=== PATIENT | female | born 1990 | race Caucasian/White ===

== ENCOUNTER → 2018-05-10 13:57 | Outpatient (CLI) | payer OTHER, SELFPAY ==
--- NOTE | 2018-05-10 14:05 | US_ITS ---
US breast LT complete INDICATION: Palpable abnormality on the left chest above the left breast ORDERING PHYSICIAN: Jong Rubio MD PATIENT AGE: 27 years COMPARISON: None TECHNIQUE: Left breast ultrasound FINDINGS: There is a heterogeneous oval lesion in the left chest superiorly measuring 3 x 1.6 cm. This is not a cyst by ultrasound. Possibly related to enlarged lymph node. Suggest chest CT for further evaluation. This lesion was not in the in an area that couldn't be imaged by mammogram. IMPRESSION: Solid appearing 3 x 1.6 cm nodule in the superior left chest cutaneous region. Adenopathy or mass is considered. Consider chest CT for further evaluation
== END ==
PROVIDERS: Family Provider Family Medicine; PCP Family Medicine; Visit Provider Family Medicine
DX: N63.20 Unspecified lump in the left breast, unspecified quadrant (principal)
CPT/HCPCS: 76641

== ENCOUNTER → 2018-05-24 14:00 | Outpatient (CLI) | payer OTHER, SELFPAY ==
--- NOTE | 2018-05-24 14:14 | CT_ITS ---
CT chest w con HISTORY: Palpable abnormality along the anterior mid upper chest with abnormal ultrasound ITS.REASON: LUNG NODULE ORDERING PHYSICIAN: Jong Rubio MD PATIENT AGE: 27 years COMPARISON: None TECHNIQUE: Axial images obtained following the administration of 75 mL of Isovue 370 . Sagittal, and coronal reformatted images are also generated and reviewed. All CT scans at the facility use one or more dose reduction, viz: automated exposure control, ma/kV adjustment per patient size (including targeted exams where dose is matched to indication, i.e. head), or iterative reconstruction technique. FINDINGS: No mediastinal or hilar mass or adenopathy is evident. Soft tissue density is present in the anterior mediastinum consistent with residual thymic tissue/thymic plasia. Normal heart size. No evidence of pericardial effusion. There is evidence of old granulomatous disease with 3 benign-appearing nodules in the right upper lobe the largest at 5 mm and may be contained central calcification. There is a 16 x 10 mm calcified granuloma in the right lower lobe. No suspicious pulmonary nodules infiltrates or effusions. Patient reports palpable nodule in the superior left chest medially. Ultrasound showed heterogeneous echogenicity in this region. BB is placed at the noted the area of palpable abnormality. Along the chest wall deep to the placed BB is a heterogeneous nodule containing mostly fat measuring 2.2 x 1.9 cm. The fat and central with some peripheral soft tissue density. A similar hypodensity is present along the lateral aspect of the breast along the major chest wall measuring 2.4 x 1.2 cm. No adenopathy or other significant anomalies are evident. There is a similar fat-containing density in the inferior aspect of the left breast at 2.6 x 2.6 cm. No other significant anomalies evident. IMPRESSION: Multiple fatty lesions along the left chest wall and left breast consistent with lipomas. There is some peripheral increased density around these lipomatous have a somewhat irregular appearance. This could also be due to prior trauma. Has patient had prior breast surgery? Would recommend left-sided mammogram for confirmation of benign appearance. Would also recommend [address] follow-up. This could be performed without contrast to confirm stability. A more ominous process such as liposarcoma is felt to be less likely.
== END ==
PROVIDERS: Family Provider Family Medicine; PCP Family Medicine; Visit Provider Family Medicine
DX: R91.1 Solitary pulmonary nodule (principal)
CPT/HCPCS: 71260; Q9967

== ENCOUNTER → 2018-09-14 21:43 | Outpatient (CLI) | payer OTHER, SELFPAY | PROVIDERS: Visit Provider Nurse Practitioner Family | DX: J02.9 Acute pharyngitis, unspecified (principal) ==

== ENCOUNTER 2020-12-09 19:15 | Emergency (ER) | payer BC, SELFPAY ==
[2020-12-09 19:20] VITALS: BP 152/80; PULSE 96; RESP 17; TEMP 36.4; O2SAT 96; BMI 36.0
--- NOTE | 2020-12-09 19:24 | XR_ITS ---
PROCEDURE: XR ANKLE RT MIN 3V CLINICAL INDICATION: PAIN Injury with pain COMPARISON: No exams were available for comparison FINDINGS: Mild soft tissue swelling present the lateral malleolar region. No fracture or dislocation. IMPRESSION: Soft tissue swelling otherwise negative Dictated by: Tio Leary MD 12/10/2020 05:26 Tio Leary MD in [place] 12/10/2020 05:26
--- NOTE | 2020-12-09 19:40 | HMH.EDUTC ---
[facility] [place] Disposition Clinical Impression: Ankle sprain Qualifiers: Encounter type: initial encounter Involved ligament of ankle: other ligament Laterality: right Qualified Code(s): S93.491A - Sprain of other ligament of right ankle, initial encounter Disposition: Home, Self-Care Condition on Discharge: Good Instructions: How to Use Crutches, How To Perform RICE (Rest, Ice, Compress, Elevate), Ibuprofen, How to Use a Walking Boot Additional Instructions: *weight bearing as tolerated *RICE, Rest the extremity, Ice 15-20 minutes 3-4 times daily, Compress- wear the moises wrap as discussed as much as possible to help reduce swelling and pain, Elevate the extremity when at rest *Walking boot is for support and help control swelling, use it except in the shower. Be sure that is not to tight but not to loose either *Elevate when resting *Ibuprofen 600-800mg every 6-8 hours as needed for pain an inflammation. If need something more can take Tylenol in between doses of Ibuprofen to help Immediately follow up with your family doctor for new or worsening of symptoms, or no noticeable improvement over the next 3-[address] Washington office will call you with appointment date and time Use crutches to aid with walking and weight bearing as tolerated Straight to ER if any life threatening symptoms Referrals: Jong Rubio MD [Primary Care Provider] - As needed Myah Washington MD [Physician] - As needed (Office will call with appointment) Time of Disposition: 19:49 Medical Decision Making - Helio Inquiry Pt receiving controlled substance: No Helio was queried for this patient: No Vital Signs: 12/09/20 19:20 Temperature 97.5 F L Temperature Source Oral Pulse Rate [Right Brachial] 96 H Respiratory Rate 17 Blood Pressure [Right Arm] 152/80 H Blood Pressure Mean [Right Arm] 104 Blood Pressure Source [Right Arm] Automatic Cuff Blood Pressure Position [Right Arm] Sitting 02 Sat by Pulse Oximetry 96 Oxygen Delivery Method Room Air Orders (Tests/Meds): ORDERS Category Date Time Status XR ankle RT min 3V Stat Exams 12/09/20 19:24 Taken - Radiology Data #1 Image(s): Ankle Image Reviewed: Yes I reviewed the patient's radiology image Preliminary Findings: No Fracture Seen soft tissue swelling no acute fracture - Physician Consults Physician Consulted: Padmini Time: 19:46 Reason -: Orthopedic Eval/Care Comment/Response: Spoke with Dr Washington she advised walking boot, crutches rice and her office would call her with appointment [facility] [place] HPI - General Stated complaint: AO 0301 [id number] injured R Ankle Time Seen by Provider: 12/09/20 19:25 Mode of Arrival: Ambulatory Source of Information: Patient Limitations: No Limitations Description of Symptoms (Recalled from Triage Doc. by RN): PATIENT C/O RIGHT ANKLE INJURY AFTER TRIPPING AND FALLING APPROX 1615 TODAY HEENT Symptoms (Recalled from RN notes): No Resp Symptoms (Recalled from RN notes): No Skin Symptoms (Recalled from RN notes): No MS Symptoms (Recalled from RN notes): Yes Functional Status (Recalled from RN notes): WNL - History of Present Illness Provider Complaint: Patient states that she was trying to get her dogs in when she slipped and felt and heard a loud pop in her right ankle and fell States that ever since she has had swelling in her right ankle and pain when she tries to walk she has sharp pain States that she tried to keep it up and put ice on it but it continued to swell so she came in Denies any other injury - Related Data Home Medications Medication Instructions Recorded Confirmed risperidone 0.5 mg tablet 0.5 mg PO DAILY 08/30/18 10/05/19 duloxetine 60 mg capsule,delayed mg PO 10/05/19 10/05/19 release Previous Rx's Medication Instructions Recorded ycapfgalnlycqmd-nrgmywzjojdziwt-OI 10 ml PO Q4-6H PRN 7 Days #118 ml 10/05/19 2 mg-30 mg-10 mg/5 mL oral syrup Allergies Allergy/AdvReac Type Severity Reaction Status Date / Christopher
[2020-12-09 20:08] VITALS: BP 152/80; PULSE 96; RESP 17; TEMP 36.4; O2SAT 96
== END 2020-12-09 20:12 | disposition home or self-care (01) ==
PROVIDERS: Emergency Provider Nurse Practitioner; PCP Family Medicine
DX: S93.491A Sprain of other ligament of right ankle, initial encounter (principal); W01.0XXA Fall on same level from slipping, tripping and stumbling without subsequent striking against object, initial encounter; Y92.017 Garden or yard in single-family (private) house as the place of occurrence of the external cause; F17.210 Nicotine dependence, cigarettes, uncomplicated
CPT/HCPCS: 29515; 73610; 99202; G0463

== ENCOUNTER 2020-12-31 09:57 | Emergency (ER) | payer BC, SELFPAY ==
[2020-12-31 10:05] VITALS: BP 133/89; PULSE 67; RESP 14; TEMP 37.4; O2SAT 99; BMI 36.0
--- NOTE | 2020-12-31 10:18 | HMH.EDUTC ---
[facility] [place] Disposition Clinical Impression: Viral syndrome, Exposure to COVID-19 virus Disposition: Home, Self-Care Condition on Discharge: Good Instructions: DI for COVID-19 (Suspected or Confirmed ), Preventing the Spread of Coronavirus Discharge Instructions Additional Instructions: Drink plenty of fluids. Take tylenol for pain or fever. Return if you begin to have difficulty breathing. Follow up with your regular doctor. GO TO THE ER FOR ANY WORSENING SYMPTOMS Prescriptions: Ondansetron [Zofran 4mg ODT] 4 mg PO Q8HP PRN #20 tab.rapdis PRN Reason: Nausea Transmission Status: Received by [facility] Referrals: Jong Rubio MD [Primary Care Provider] - Forms: Work/School Release Time of Disposition: 10:29 Medical Decision Making - Medical Records Medical records reviewed: No: I reviewed the patient's medical records. - Helio Inquiry Pt receiving controlled substance: No Vital Signs: 12/31/20 10:05 12/31/20 10:37 Temperature 99.3 F 99 F Temperature Source Oral Pulse Rate 77 Pulse Rate [Right] 67 Respiratory Rate 14 16 Blood Pressure 130/92 H Blood Pressure [Right Arm] 133/89 Blood Pressure Mean [Right Arm] 103 Blood Pressure Source [Right Arm] Automatic Cuff Blood Pressure Position [Right Arm] Sitting 02 Sat by Pulse Oximetry 99 Oxygen Delivery Method Room Air - Lab Data Lab results reviewed: Yes: I reviewed the patient's lab results. Lab Results 12/31/20 10:38: Strep Scn Rapid Clinic Negative Orders (Tests/Meds): ORDERS Category Date Time Status Covid-19 Nasal PCR ([facility]) Routine Lab 12/31/20 10:10 Received Strep Screen Confirmation Stat Micro 12/31/20 10:38 Received [facility] [place] HPI - General Stated complaint: cov test Time Seen by Provider: 12/31/20 10:18 Mode of Arrival: Ambulatory Source of Information: Patient Limitations: No Limitations Description of Symptoms (Recalled from Triage Doc. by RN): N/V, RIVAS, fever, and sore throat. all started wednesday. HEENT Symptoms (Recalled from RN notes): Yes (sore throat and RIVAS) Resp Symptoms (Recalled from RN notes): No Skin Symptoms (Recalled from RN notes): No MS Symptoms (Recalled from RN notes): No Functional Status (Recalled from RN notes): na - History of Present Illness Provider Complaint: She c/o sore throat, nausea, cough, and body aches since yesterday. 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 She has been exposed to covid-19. - Related Data Home Medications Medication Instructions Recorded Confirmed risperidone 0.5 mg tablet 0.5 mg PO DAILY 08/30/18 12/16/20 Previous Rx's Medication Instructions Recorded Ondansetron [Zofran 4mg ODT] 4 mg PO Q8HP PRN #20 tab.rapdis 12/31/20 Allergies Allergy/AdvReac Type Severity Reaction Status Date / Time tramadol [From ULTRAM] Allergy Unknown Verified 12/31/20 10:13 - Worker's Comp Is this a Worker's Comp case?: No [facility] History - Hepatitis A Screen Drug use history?: No High risk sexual behaviors?: No History of sexually transmitted infection?: No Currently employed?: No Childcare worker?: No Do you have indoor plumbing?: Yes Do you have electricity?: Yes Attestation statement:: This patient has been screened for Hepatitis A risk factors. I have reviewed the patient's past medical history: Yes Medical History: Reports:: Anxiety, Depression Other Surgeries: Yes: No Previous Surgery - Social History Smoking Status: Unknown if ever smoked Tobacco Type: cigarettes Alcohol Intake: never Occupational Status: employed Housing: house Household Members: family - Psychiatric History Pschychiatric History:: Reports:: Anxiety, Depression Family Hx:: No significant family history ROS Obtained: Yes All systems reviewed & no additional complaints - Constitutional Constitutional: Reports body ache, Reports chills, Reports fever(s), Reports poor appetite, Reports malaise - Eyes Eyes: Denies eye discharge - ENT Ears, Nose, Mouth, and
[2020-12-31 10:37] VITALS: BP 130/92; PULSE 77; RESP 16; TEMP 37.2
[2020-12-31 10:39] LABS: UTC Strep Screen (Rapid) Negative (Negative)
== END 2020-12-31 10:37 | disposition home or self-care (01) ==
PROVIDERS: Emergency Provider Nurse Practitioner Family; PCP Family Medicine
DX: Z20.822 Contact with and (suspected) exposure to COVID-19 (principal); B34.9 Viral infection, unspecified; F41.8 Other specified anxiety disorders
CPT/HCPCS: 87880; 99202; G0463; U0003

== ENCOUNTER → 2022-03-11 20:02 | Outpatient (CLI) | payer BC, SELFPAY | PROVIDERS: PCP Family Medicine; Visit Provider Nurse Practitioner Family | DX: G47.30 Sleep apnea, unspecified (principal); R53.83 Other fatigue; R06.83 Snoring; G47.50 Parasomnia, unspecified; G47.9 Sleep disorder, unspecified; G47.00 Insomnia, unspecified; E66.9 Obesity, unspecified; Z68.38 Body mass index [BMI] 38.0-38.9, adult | CPT/HCPCS: 95810 ==

== ENCOUNTER → 2023-08-11 13:27 | Outpatient (CLI) | payer BC, SELFPAY ==
[2023-08-11 12:21] LABS: Basophils % 0.3 % (0.1-2.0); Eosinophils # 0.1 K/mm3 (0.0-0.4); Hematocrit 34.2 % (37.0-47.0); Hemoglobin 11.4 g/dL (12.2-16.2); Lymphocytes # 1.7 K/mm3 (0.7-4.5); Mean Corpuscular HGB Conc 33.4 g/dL (31.8-35.4); Mean Corpuscular Hemoglobin 25.1 pg (27.0-31.2); Mean Corpuscular Volume 75.2 fl (81-99); Mean Platelet Volume 8.3 fl (7.4-10.4); Monocytes # 0.4 K/mm3 (0.1-1.0); Monocytes % 5.7 % (1.7-9.3); Neutrophils # 5.3 K/mm3 (1.8-7.8); Platelet Count 380 K/mm3 (142-424); Red Blood Count 4.55 M/mm3 (4.20-5.40); Red Cell Distribution Width 16.4 % (11.5-17.5); White Blood Count 7.5 K/mm3 (4.8-10.8)
[2023-08-11 12:48] LABS: Alanine Aminotransferase 19 U/L (12-78); Albumin/Globulin Ratio 1.5 (1.1-1.8); Alkaline Phosphatase 76 U/L (38-126); Anion Gap 11.2 mEq/L (5-15); Aspartate Amino Transferase 24 U/L (14-36); Bilirubin,Total 0.6 mg/dl (0.2-1.3); Blood Urea Nitrogen 10 mg/dl (7-17); Calcium 8.9 mg/dl (8.4-10.2); Carbon Dioxide 25 mmol/L (22.0-30.0); Chloride 104 mmol/L (98-107); Chol/HDL Ratio 4.4 (1-3.5); Cholesterol 184 mg/dl (140-200); Estimated Glomerular Filt Rate 83 ml/min (>60); GFR (African American) 100 ML/MIN (>60); Globulin 2.6 g/dL (1.3-3.2); Glucose 100 mg/dl (74-100); HDL Cholesterol 42 mg/dl (40-60); Potassium 4.2 mmoL/L (3.5-5.1); Sodium 136 mmol/L (136-145); Total Protein,Serum 6.6 g/dl (6.3-8.2); Triglycerides 153 mg/dl (30-150); VLDL Cholesterol 31 mg/dL (0-40)
[2023-08-11 12:59] LABS: Direct LDL Cholesterol 107.07 mg/dL (100-129)
[2023-08-11 13:01] LABS: 25-OH Vitamin D, Total 23.6 ng/mL (30-100)
[2023-08-11 13:18] LABS: Thyroid Stimulating Hormone 1.24 uIU/mL (0.465-4.68)
[2023-08-11 13:37] LABS: Vitamin B12 303 pg/mL (239-931)
[2023-08-12 10:18] LABS: Iron 21 ug/dL (37-170)
[2023-08-12 10:28] LABS: Total Iron Binding Capacity 438 ug/dL (265-497)
[2023-08-12 10:55] LABS: Ferritin 5.33 ng/ml (6.24-137)
== END ==
PROVIDERS: PCP Physician Assistant; Visit Provider Physician Assistant
DX: Z00.00 Encounter for general adult medical examination without abnormal findings (principal); Z82.41 Family history of sudden cardiac death; D64.9 Anemia, unspecified; D50.8 Other iron deficiency anemias; F41.9 Anxiety disorder, unspecified; F33.1 Major depressive disorder, recurrent, moderate
CPT/HCPCS: 80053; 80061; 82306; 82607; 82728; 83540; 83550; 84443; 85025

== ENCOUNTER → 2023-08-16 06:40 | Outpatient (CLI) | payer BC, SELFPAY ==
--- NOTE | 2023-08-16 | CA_ITS ---
APPROVED REPORT Exam: Exercise Treadmill Technologist: Gerri Beckford, Ht: 5 ft 7 in Wt: 247 lbs BSA: 2.21 m2 HR: 79 bpm BP: 126/82 mmHg Rhythm: NSR Medical History Medications: No known home meds,,,,, Allergies: TRAMADOL Cardiac Risk Factors: FHX of CAD Stress Test Details Test: Av HR Resting HR: 82 bpm Max Heart Rate (APMHR): 187 bpm Max HR Achieved: 170 bpm Target HR (85% APMHR): 159 bpm % of APMHR: 91 Recovery HR: 108 bpm HR response to stress: Normal HR response to stress BP Resting BP: 126.0/82 mmHg Max BP: 163/89 mmHg Recovery BP: 141.0/77.0 mmHg BP response to stress: Normal blood pressure response to stress. ECG Resting ECG: NSR Stress ECG: < 0.[address] depression Arrhythmia: None Recovery ECG: Return to baseline within 3 minutes of recovery Recovery Arrhythmia: None Clinical Exercise duration: 08:18 min Highest Stage Achieved: Exercise capacity: 10.1 METs Overall Exercise Capacity for Age: Average Stress ECG Conclusion The patient was able to exercise for a total of 8 minutes, 18 seconds. She achieved a total of 10.1 METS. She has average exercise capacity compared to age and sex matched peers. She has normal HR and BP response to exercise. MAX HR: 170 % OF PM: 91 MAX BP: 163/89 METS: 10.1 TEST STOPPED DUE TO: DYSPNEA PT HAD DYSPNEA, LEG FATIGUE, AND CHEST PRESSURE LESS THAN 0.[address] DEPRESSION CONCLUSION: NORMAL EKG RESPONSE TO EXERCISE MYOVIEW IMAGES ARE REPORTED SEPARATELY Test Summary REST . . . . . . . Standing REST . . . . . . . Sitting REST 03:05 0.0 0.0 82 . 126/ 82 . . Stage 1 01:00 10.0 1.7 107 . . . . Stage 1 02:00 10.0 1.7 117 . . . . Stage 1 03:00 10.0 1.7 124 . 132/ 80 . . Stage 2 01:00 12.0 2.5 133 . . . . Stage 2 02:00 12.0 2.5 144 . . . . Stage 2 03:00 12.0 2.5 154 . 142/ 85 . . Stage 3 01:00 14.0 3.4 162 . . . . Stage 3 . . . . . . . Myoview Injected Stage 3 02:00 14.0 3.4 169 . . . . Stage 3 02:18 14.0 3.4 169 . . . Stop exercise at 08:18 RECOVERY 01:00 0.0 0.0 155 . 150/ 78 . . RECOVERY 02:00 0.0 0.0 135 . 150/ 78 . . RECOVERY 03:00 0.0 0.0 122 . 153/ 93 . . RECOVERY 04:00 0.0 0.0 114 . 163/ 89 . . RECOVERY 05:00 0.0 0.0 115 . 136/ 83 . . RECOVERY 06:00 0.0 0.0 114 . 136/ 83 . . RECOVERY 07:00 0.0 0.0 108 . 141/ 77 . . RECOVERY 07:06 0.0 0.0 106 . 141/ 77 . . Electronically signed by : Dacia Owen MD 08/18/2023 14:32:50
--- NOTE | 2023-08-16 07:48 | NM_ITS ---
APPROVED REPORT Exam: Nuclear Stress Test Indication: OBESITY, FM HX, SOB, DIZZINESS Patient Location: Outpatient Stress Tech: Gerri Beckford [place] Tech:Theresa BETSEY Lira RT (R)(N)(M) Ht: 5 ft 7 in Wt: 240 lbs Bra Size: DD HR: 79 bpm BP: 126/82 mmHg BSA: 2.19 m2 TID: 1.03 BMI: 37.5 History: OBESITY, FM HX, SOB, DIZZINESS Procedure: Patient exercised on Av protocol 8:18 minutes and sec, resting heart rate 79 bpm, resting blood pressure 126/82 mmHg, with exercise maximum heart rate achived was 155 bpm which is 91 % of the maximum predicted heart rate and blood pressure was 150/78 mmHg. Test was stopped due to FATIGUE. Patient denied any complaint of chest pain. Patient has exercise capacity, achieved 10.1 METs of workload on treadmill, the blood pressure response to exercise was . Cardiac Stress and Resting SPECT Images: Cardiac Stress and Resting SPECT images were obtained using technetium 99m Myoview 31.7 mCi stress and 10.64 mCi at rest. Resting and stress imaging in supine and prone positions demonstrate no evidence of fixed or reversible perfusion defects. Gated imaging demonstrates normal global and regional LV systolic function. LVEF is calculated at 62%. Conclusion: No evidence of fixed or reversible perfusion defects. Gated imaging demonstrates normal global and regional LV systolic function. LVEF is calculated at 62%. Electronically signed by : Dacia Owen MD 08/18/2023 14:33:58
== END ==
PROVIDERS: PCP Physician Assistant; Visit Provider Physician Assistant
DX: R06.02 Shortness of breath (principal); R42 Dizziness and giddiness; E66.01 Morbid (severe) obesity due to excess calories; Z68.38 Body mass index [BMI] 38.0-38.9, adult; Z82.41 Family history of sudden cardiac death; R94.31 Abnormal electrocardiogram [ECG] [EKG]
CPT/HCPCS: 78452; 93017; A9502

== ENCOUNTER → 2023-08-26 13:20 | Outpatient (CLI) | payer BC, SELFPAY ==
--- NOTE | 2023-08-26 13:23 | CA_ITS ---
APPROVED REPORT EXAM: Comprehensive 2D, Doppler, and color-flow Echocardiogram [place] Cleaner: Rylee Pritchard RDCS Ht: 5 ft 7 in Wt: 247lbs BSA: 2.21 BP: 146/90 mmHg Indications: SOA,ABN ECG 2D Dimensions LVOT 1.90 cm (M/F) 1.5-2.5 M-Mode Dimensions RVDd 2.51 cm (0.9-2.6) LA Diam 3.30 cm (1.9-4.0) LVDd 5.35 cm (3.5-5.7) Ao Diam 2.59 cm (2.0-3.7) LVDs 3.54 cm (3.5-5.7) IVSd 0.74 cm (0.6-1.1) PWd 0.86 cm (0.6-1.1) EF (Teich) 62.20% FS 33.80% EDV (Teich) 138.30 mL ESV (Teich) 52.30 mL LV Diastology E Decel Time 237.00 (160-240 msec) E/A Ratio 1.8 MED E' 12.20 (< 7 cm/sec) E'/MED E' Ratio 7.82 (>14) LAT E' 14.60 (<10 cm/sec) E/LAT E' Ratio 6.53 (>14) Mitral Valve MV E Max Brayan. 95.00 (40-130 cm/s) MV A Velocity 54.00 (40-130 cm/s) E/A Ratio 1.75 MV Decel. Time 237.00 (160-240 ms) MV PHT 69.00 ms Tricuspid Valve TR P. Velocity 261.00 cm/s RAP Estimate 10.00 mmHg RVSP 37.30 mmHg Left Ventricle The left ventricle is normal size. The left ventricular systolic function is normal. The left ventricular ejection fraction is within the normal range. There is normal left ventricular wall thickness. There is normal LV segmental wall motion. The left ventricular diastolic function is normal. LVEF is 55%. Right Ventricle The right ventricle is normal size. The right ventricular systolic function is normal. Atria The left atrium size is normal. The right atrium size is normal. There is no Doppler evidence of interatrial shunt. Aortic Valve The aortic valve opens well. There is no aortic valvular stenosis. No aortic regurgitation is present. Mitral Valve The mitral valve is normal in structure. No evidence of mitral valve stenosis. Mild mitral regurgitation. Tricuspid Valve The tricuspid valve leaflets are thin and pliable. Mild tricuspid regurgitation. RVSP is 25-30 mmHg. Pulmonic Valve The pulmonary valve is normal in structure. Trace pulmonic regurgitation. Great Vessels The aortic root is normal in size. The ascending aorta is normal in size. IVC is normal in size and collapses >50% with inspiration. Pericardium There is no pericardial effusion. Other Information Study Quality: Fair Conclusion Normal biventricular systolic function. Mild MR, mild TR. Electronically signed by : Dacia Owen MD 09/05/2023 20:36:06
== END ==
LOC: RT 13:21
PROVIDERS: PCP Physician Assistant; Visit Provider Physician Assistant
DX: Z82.41 Family history of sudden cardiac death (principal)
CPT/HCPCS: 93306

== ENCOUNTER 2023-09-16 06:55 | Outpatient (CLI) | payer BC, SELFPAY ==
--- NOTE | 2023-09-16 07:01 | CT_ITS ---
APPROVED REPORT After School Program Coordinator: CLINICAL INDICATION Chest Pain TECHNIQUE Image Acquisition: A 128 slice MDCT scanner ([employer] View) was used for data acquisition. A noncontrast coronary calcium scan was performed. A CT attenuation threshold of 130 Hounsfield units (HU) was used for the detection of calcium in contiguous voxels of 1 sq mm in area to be counted as individual lesions. Bolus tracking in the ascending aorta with a threshold of 180 HU was performed. Immediately afterwards, ECG synchronized cardiac CT was then performed from the cardiac base to apex using retrospective gating with ECG tube current modulation. A total of 85 mL of Isovue 370 mg/mL contrast medium was administered at 5 mL/sec followed by a saline flush using a biphasic injection protocol. A tube voltage of 120 KVp was used. The patient received the following medications prior to the cardiac CT. 100 mg of oral metoprolol 0.8 mg of sublingual nitroglycerin The average heart rate at the time of acquisition was 57 bpm and regular. Image Reconstruction Transaxial images were reconstructed at 0.67 mm slide thickness. Data was reviewed interactively on an advanced workstation capable of 2 and 3-dimensional displays in all conventional reconstruction formats, including multiplanar reformations, maximum intensity projections, curved multiplanar reformations, and volume rendered reconstructions. When applicable, selected routine images describing the relevant coronary anatomy and pathology were saved and sent to PACS. Complications None Technical Quality Overall image quality was good. Coronary artery opacification was adequate. Total DLP (Dose-Length Product) is 1221.4 mGy-cm. The reported value represents the total of one or more individual components during the CT acquisition of this date and at this time, and as such, the same value may appear in more than one CT report depending on the interpreting/reporting physicians. COMPARISON None FINDINGS CT Coronary Calcium Scoring LMA (Left Main Artery) = 0 LAD (Left Anterior Descending) = 0 LCX (Left Coronary Circumflex) = 0 RCA (Right Coronary Artery) = 0 Total Calcium Score = 0 using the AJ-130 method. The interpretation of the calcium heart score is based on the following continuum*: 0 = no calcified plaque detected (risk of coronary artery disease is very low ??? less than 5%) 1-10 = calcium detected in extremely minimal levels (risk of coronary diseases is still low ??? less than 10%) 11-100 = mild levels of plaque detected with certainty (mild or minimal narrowing of heart arteries is likely) 101-400 = definite,at least moderate levels of plaque detected (relatively high risk of a heart attack within 3-5 years) >401-999 = extensive levels of plaque detected (high risk of heart attack, high levels of vascular disease are present, high likelihood of at least one significant coronary narrowing) *The calcium heart score quantifies the burden of coronary calcification/plaque in the coronary arteries. The calcium heart score is not able to evaluate the presence or burden of non-calcified (i.e. soft) plaque. There is no identifiable calcification in the aortic valve, mitral annulus or mitral valve, pericardium, or myocardium. Coronary CT Angiography Coronaries have normal origin and proximal course. The coronary arterial system is right dominant. Note: Stenosis is reported as maximum percentage diameter stenosis. Quantitative Stenosis Grading: Left Main (LM): The left main originates normally from the left sinus of Valsalva. The LM trifurcates into the left anterior descending artery, a ramus intermedius, and left circumflex artery. The LM is patent with no evidence of atherosclerosis. Left Anteri
[2023-09-16 07:11] VITALS: BMI 39.1
[2023-09-16 07:17] VITALS: BP 144/97; PULSE 89; RESP 18; TEMP 36.3; O2SAT 100
[2023-09-16 07:48] LABS: HCG Qualitative, Serum Negative (Negative)
[2023-09-16 08:25] VITALS: BP 158/87; PULSE 60; RESP 18; O2SAT 99
[2023-09-16 08:30] VITALS: BP 122/78; PULSE 61; RESP 18; O2SAT 98
[2023-09-16 08:47] VITALS: BP 136/92; PULSE 58; RESP 16; TEMP 36.9; O2SAT 99
== END 2023-09-16 08:50 | disposition home or self-care (01) ==
PROVIDERS: PCP Physician Assistant; Visit Provider Internal Medicine
DX: R06.09 Other forms of dyspnea (principal); R94.31 Abnormal electrocardiogram [ECG] [EKG]; Z82.41 Family history of sudden cardiac death
CPT/HCPCS: 75571; 75574; 84703; Q9967

== ENCOUNTER 2025-05-22 08:30 | Emergency (ER) | payer BC, SELFPAY ==
[2025-05-22 08:40] VITALS: BP 154/101; PULSE 107; O2SAT 99
[2025-05-22 08:44] LABS: Microscopic, Urine URINE MICROSCOPIC (MICROSCOPIC)
[2025-05-22 08:45] VITALS: BP 154/101; PULSE 92; RESP 19; TEMP 36.9; O2SAT 96; BMI 40.7
[2025-05-22 08:45] LABS: Bilirubin,Urine Negative (Negative); Color,Urine YELLOW (Yellow); Glucose,Urine (UA) TRACE (Negative); Ketones,Urine Negative (Negative); Leukocyte Esterase,Urine 1+ (Negative); PH,Urine 6.0 (5.0-8.5); Protein,Urine 1+ (Negative); Specific Gravity, Urine 1.025 (1.005-1.030); Urobilinogen,Urine 2.0 EU/dl (0.2)
--- OUTSIDE RECORDS SUMMARY | 2025-05-22 08:47 | XMS_ITS | Encounter Summary ---
Author Organization [employer] ([place], [place], [place], [place]) Address [address] [place] [address] Care Team Providers Care Police Manager Name Role Phone Unavailable Primary Care Provider Unavailabl e Encounter Details Date Type Department Care Team (Late st Contact Info) Description 12/29/2020 Transcribed Document [facility] [place] [facility] [place] [address] ProviderZahira MD [address] [place] [address] Social History Tobacco Use Types Packs/Day Years Used Date Smoking Tobacco: Never Assessed Comments Unknown Sex and Gender Information Value Date Recorded Sex Assigned at Female 04/07/2022 8:50 PM CDT Legal Sex Female 8:50 PM CDT Gender Identity Female 04/07/2022 8:50 PM CDT Sexual Orientation Not on file documented as of this encounter Miscellaneous Notes * Cerner Conversion Note - Historical ProviderMD - 12/29/2020 1:37 PM CDT ED Assessment Entered On: 12/29/2020 14:28 EDT Performed On: 12/29/2020 14:27 EDT by Hai Yepez RN ED Quick Look Assessment Level of Consciousness : Alert, Awake Affect/Behavior : Appropriate, Calm, Cooperative Orientation : Oriented x 4 Skin Temperature : Warm Skin Description : Normal for ethnicity Hai Yepez RN - 12/29/2020 14:27 EDT ED General-Functional Assess Information Obtained From : Patient Communication Barrier : None Primary Language : Turkmen Any Spiritual/Cultural Needs or Requests : No Currently in Unsafe Situation : No Hai Yepez RN - 12/29/2020 14:27 EDT Social Habits Smoking Status : Smoker, current status unknown Smokeless Tobacco Status : Never Desires Tobacco Cessation Medication : No Reason for No Tobacco Cessation Medication : ED/procedural patient only Desires Tobacco Cessation Calc : 1 Hai Yepez RN - 12/29/2020 14:27 EDT Social History (As Of: 12/29/2020 14:28:52 EDT) Cardiovascular ASMT, ED Cardiovascular Assessment WDL : Hai Simpson RN - 12/29/2020 14:27 EDT Respiratory Respiratory Assessment WDL : Hai Simpson RN - 12/29/2020 14:27 EDT Gastrointestinal ED Gastrointestinal Assessment WDL : VEGA with exceptions Gastrointestinal Symptoms : Nausea, Vomiting Hai Yepez RN - 12/29/2020 14:27 EDT Genitourinary Assessment, ED Genitourinary Assessment WDL : Hai Simpson RN - 12/29/2020 14:27 EDT Neurologic ASMT, ED Neurologic Assessment WDL : Hai Simpson RN - 12/29/2020 14:27 EDT documented in this encounter Plan of Treatment Not on file documented as of this encounter Visit Diagnoses Not on filedocumented in this encounter
--- OUTSIDE RECORDS SUMMARY | 2025-05-22 08:47 | XMS_ITS | Encounter Summary ---
Author Organization [employer] ([place], [place], [place], [place]) [address] [place] [address] Care Team Providers Care Oiler Helper Name Role Phone Unavailable Primary Care Provider Unavailabl e Encounter Details Date Type Department Care Team (Late st Contact Info) Description 12/29/2020 Transcribed Document [facility] Medicine [address] [place] [address] ProviderZahira MD [address], [place] [id number] Social History Tobacco Use Types Packs/Day Years [...] Historical ProviderMD - 12/29/2020 1:37 PM CDT [place] Suicide Severity Rating Scale (C-SSRS) Entered On: 12/29/2020 14:29 EDT Performed On: 12/29/2020 14:27 EDT by Hai Yepez RN [place] Suicide Severity Rating Scale (C-SSRS) CSSRS Past Month Wish to be : No CSSRS Past Month Suicidal Thoughts : No CSSRS Lifetime Suicide Behavior : No Suicide Severity Rating Score : 0 Suicide Severity Rating : No Additional Care Required at this time Hai Yepez RN - 12/29/2020 14:27 EDT Electronically signed by Maurisio [facility] Conversion Slat Basket Maker Helper Cerner at 01/26/2023 1:13 PM CDT documented in this encounter Plan of Treatment Not on file documented as of this encounter Visit Diagnoses Not on filedocumented in this encounter
--- OUTSIDE RECORDS SUMMARY | 2025-05-22 08:47 | XMS_ITS | Encounter Summary ---
Author Organization [employer] ([place], [place], [place], [place]) Address [address] [place] [address] Care Team Providers Care Compressor Mechanic Bus Name Role Phone Unavailable Primary Care Provider Unavailabl e Encounter Details Date Type Department Care Team (Late st Contact Info) Description 12/29/2020 Transcribed Document [facility] [facility] [place] [address] ProviderZahira MD [address] [place] [address] Social History Tobacco Use Types [...] ProviderMD - 12/29/2020 1:37 PM CDT ED Triage Entered On: 12/29/2020 13:47 EDT Performed On: 12/29/2020 13:42 EDT by KAYLYN HUNG RN ED Triage Across the Room Chief Complaint : c/o taking a handul of her 60mg duloxetine today at 1130 while fighting with her . unknown amount, swallowed some, spit out some. denies SI i value my life Triage Date/Time : 12/29/2020 13:42 EDT KAYLYN HUNG RN - 12/29/2020 13:42 EDT DCP GENERIC CODE Tracking Acuity : 2 - Emergent Tracking Group : [facility] ED KAYLYN HUNG RN - 12/29/2020 13:42 EDT Mode of Arrival : Ambulatory Transported to ED by : Private vehicle To Room Via : Ambulate Accompanied By : Unaccompanied ED Vital Signs : Document Height & Weight : Document ED Allergies : Document ED Reason for Visit : Document KAYLYN HUNG RN - 12/29/2020 13:42 EDT Infectious Disease History Has the patient ever been tested for COVID-19? : No, Patient stated Does patient have symptoms of COVID-19? : No COVID19 Screening : No Experiencing Infectious Disease Symptoms : No symptoms Physical contact outside [place] in the last 30 days : No Infectious Disease History : Chicken pox/Shingles, Influenza Tuberculosis Symptoms : None KAYLYN HUNG RN - 12/29/2020 13:42 EDT Vital Signs ED Temperature Source : Temporal artery scanning Temperature Mode : Fahrenheit Temperature, Fahrenheit : 98.1 Deg F Clinical Temperature, C : 36.7 Deg C Oxygen Therapy Mode : Room air Peripheral Pulse Rate : 103 bpm (HI) Respiratory Rate : 15 Breaths/Min Systolic Blood Pressure : 141 mmHg (HI) Diastolic Blood Pressure : 90 mmHg Oxygen Saturation : 99 % KAYLYN HUNG RN - 12/29/2020 13:42 EDT Allergy (As Of: 12/29/2020 13:47:35 EDT) Allergies (Active) Ultram Estimated Onset Date: Unspecified ; Reactions: gallbladder problems ; Created By: KAYLYN HUNG RN; Reaction Status: Active ; Category: Drug ; Substance: Ultram ; Type: Allergy ; Updated By: KAYLYN HUNG RN; Reviewed Date: 12/29/2020 13:44 EDT Diagnosis Control ED (As Of: 12/29/2020 13:47:35 EDT) Problems(Active) Anxiety (SNOMED CT :40476890 ) Name of Problem: Anxiety ; Recorder: KAYLYN HUNG RN; Confirmation: Confirmed ; Classification: Medical ; Code: [id number] ; Contributor System: [facility] ; Last Updated: 12/29/2020 13:46 EDT ; Life Cycle Date: 12/29/2020 ; Life Cycle Status: Active ; Vocabulary: SNOMED CT Depression (SNOMED CT :19854447 ) Name of Problem: Depression ; Recorder: KAYLYN HUNG RN; Confirmation: Confirmed ; Classification: Medical ; Code: [id number] ; Contributor System: [facility] ; Last Updated: 12/29/2020 13:46 EDT ; Life Cycle Date: 12/29/2020 ; Life Cycle Status: Active ; Vocabulary: SNOMED CT Diagnoses(Active) Medication overdose Date: 12/29/2020 ; Diagnosis Type: Reason For Visit ; Confirmation: Complaint of ; Clinical Dx: Medication overdose ; Classification: Medical ; Clinical Service: Emergency medicine ; Code: PNED ; Probability: 0 ; Diagnosis Code: [id number] ED Height and Weight Height Source : Stated Height Entry Format : [place] Height, Feet : 5 ft(Converted to: 152 cm, 60 Inch) Height, Inches : 7 Inch(Converted to: 0 ft 7 Inch, 17.78 cm) Clinical Height : 170.18 cm Weight Source, ED : Critical estimated dosing weight Weight Entry Format : [place] Weight, Pounds : 250 lb Clinical Dosing Weight : 113.64 kg Body Surface Area (BSA) : 2.23 m2 Body Mass Index : 39.2 kg/m2 (HI) [place] Body Weight (IBW) : 61.16 kg KAYLYN HUNG RN - 12/29/2020 13:42 EDT documented in this encounter Plan of Treatment Not on file documented as of this encounter Visit Diagnoses Not on filedocumented in this encounter
--- OUTSIDE RECORDS SUMMARY | 2025-05-22 08:47 | XMS_ITS | Encounter Summary ---
Author Organization [employer] ([place], [place], [place], [place]) Address [address] [place] [address] Care Team Providers Care Study Specialist Name Role Phone Unavailable Primary Care Provider Unavailabl e Encounter Details Date Type Department Care Team (Late st Contact Info) Description 12/29/2020 Transcribed Document [facility] [place] [facility] [place] [address] ProviderZahira MD [address] [place] [address] Social History Tobacco Use Types [...] Conversion Note - Historical ProviderMD - 12/29/2020 5:23 PM CDT Electronically signed by Maurisio [facility] Conversion Rounding Machine Tender Toi at 01/26/2023 1:24 PM CDT documented in this encounter Plan of Treatment Not on file documented as of this encounter Visit Diagnoses Not on filedocumented in this encounter
--- OUTSIDE RECORDS SUMMARY | 2025-05-22 08:47 | XMS_ITS | Encounter Summary ---
Author Organization [email or web address] ([place], [place], [place], [place]) Address [address] [place] [address] Care Team Providers Care Stove Installer Name Role Phone Unavailable Primary Care Provider Unavailabl e Encounter Details Date Type Department Care Team (Late st Contact Info) Description 12/29/2020 Transcribed Document [facility] Family Medicine [facility] [address] ProviderZahira MD [address] [place] [address] Social History Tobacco Use Types Packs/Day Years Used Date Smoking Tobacco: Never Assessed Comments Unknown Sex and Gender Information Value Date Recorded Sex Assigned at Female 04/07/2022 8:50 PM CDT Legal Sex Female 8:50 PM CDT Gender Identity Female 04/07/2022 8:50 PM CDT Sexual Orientation Not on file documented as of this encounter Miscellaneous Notes * Cerner Conversion Note - Zahira Watts MD - 12/29/2020 5:23 PM CDT [facility] [place] [address] JOSE DE JESUSJOELLENSOHAIL CHRISTINE :1990 Visit Time:12/29/2020 Your Visit Summary Your Care Team Primary Provider: VENKAT STOUT Secondary Provider: Your Diagnosis Accidental medication overdose Medication overdose Medical Information You may obtain a copy of your Emergency Department visit from Medical Records by calling the hospital phone number listed above and asking to be directed to the Medical Records Department. If you had special tests, such as EKG???s or X-rays, the interpretation of your tests given to you by the Emergency Department Physician is a preliminary report. Some fractures and illnesses fail to show up on preliminary tests. These will be reviewed again and we will call you if there are any new suggestions. If your symptoms continue notify your physician. After you leave, you should follow the instructions provided. What to do next Follow-Up Appointments Follow Up with [facility] ([facility]) When Within 2 to 3 days Where: [place] [address]- [phone] Business (1) Allergies Ultram (gallbladder problems) Immunizations This Visit No Immunizations Found Medications The home medications listed are only as accurate as the information you provided. Please continue taking all of your medications prescribed by your Primary Care Provider unless specifically told to change or discontinue the medication. Please direct any questions regarding your home medications to your Primary Care Provider. Take your medications faithfully. Do NOT skip medication. Do NOT stop taking medications without the direction of a physician. Carry a list of your medications with you at all times, and take this medication list with you to your first follow up visit. Report any side effects. Avoid herbal remedies unless discussed with your physician. As part of your treatment plan, your physician may have prescribed a limited course of a controlled substance. This medication may be given to help people with moderate or severe pain or for other medical conditions, but there are risks involved with treatment. Common side effects may include nausea, constipation, drowsiness, sweating, itching, dry mouth, and rash. More serious side effects may include cognitive and motor impairment, like problems with thinking, concentrating, alertness, and movement (e.g. slowed reflexes), and driving and operating heavy machinery can be dangerous. It is important for you to talk to your physician if you have these side effects or questions. These controlled substances can produce physical dependence and be habit-forming if taken for an extended period of time, which means that the body has gotten used to them and may experience withdrawal symptoms if they are abruptly stopped. Withdrawal symptoms can include runny nose, sweating, goose bumps, diarrhea, abdominal cramping, rapid heartbeat, difficulty sleeping, and nervousness. Please dispose of unused and medications per pharmacy guidance. Test Results Laboratory or Other Results This Visit (last charted value for your 12/29/2020 visit) Hematology 12/29/2020 2:25 PM WBC: 10.4 K/uL -- Normal range between ( 4.5 and 10.5 ) RBC: 4.60 Million/uL -- Normal range between ( 3.93 and 5.22 ) Hct: 37.4 % -- Normal range between ( 34.1 and 44.9 ) Hgb: 11.7 g/dL -- Normal range between ( 11.2 and 15.7 ) Platelet Count: 506 K/uL -- Normal range between ( 163 and 369 ) MCH: 25.4 pg -- Normal range between ( 25.6 and 32.2 ) MCHC: 31.3 Gram/dL -- Normal range between ( 32.2 and 36.5 ) MCV: 81.3 fL -- Normal range between ( 79.0 and 94.8 ) Slide Review: No Eos %: 0.8 % -- Normal range between ( 0.0 and 7.0 ) [place] #: 0.55 K/uL -- Normal range between ( 0.16 and 1.00 ) Eos #: 0.08 x10(3)/uL -- Normal range between ( 0.00 and 0.80 ) [place] %: 5.3 % -- Normal range between ( 3.0 and 9.0 ) Baso %: 0.7 % -- Normal range between ( 0.0 and 1.5 ) Baso #: 0.07 x10(3)/uL -- Normal range between ( 0.00 and 0.20 ) RDW: 16.0 % -- Normal range between ( 11.7 and 14.9 ) Neut %: 77.8 % -- Normal range between ( 34.0 and 71.0 ) Neut #: 8.06 K/uL -- Normal range between ( 1.56 and 6.13 ) Lymph %: 14.6 % -- Normal range between ( 19.3 and 53.1 ) Lymph #: 1.51 x10(3)/uL -- Normal range between ( 1.00 and 3.90 ) MPV: 9.1 fL -- Normal range between ( 9.4 and 12.4 ) IG#: 0.08 x10(3)/uL -- Normal range between ( 0.00 and 0.05 ) IG%: 0.80 % -- Normal range between ( 0.00 and 0.60 ) General Chemistry 12/29/2020 2:25 PM Creatinine Level: 0.90 mg/dL -- Normal range between ( 0.55 and 1.02 ) Sodium Level: 141 mmol/L -- Normal range between ( 136 and 146 ) Potassium Level: 3.8 mmol/L -- Normal range between ( 3.5 and 5.1 ) Chloride Level: 111 mmol/L -- Normal range between ( 102 and 112 ) Carbon Dioxide Level: 26 mmol/L -- Normal range between ( 21 and 32 ) Anion Gap: 8 -- Normal range between ( 9 and 20 ) Bun/Creatinine: 7.8 -- Normal range between ( 8.0 and 20.0 ) Calcium Level: 8.7 mg/dL -- Normal range between ( 8.4 and 10.1 ) eGFR : >60 mL/min/1.73m2 eGFR NonAfrican: >60 mL/min/1.73m2 Glucose Level: 100 mg/dL -- Normal range between ( 74 and 106 ) Blood Urea Nitrogen: 7 mg/dL -- Normal range between ( 7 and 22 ) Toxicology 12/29/2020 2:25 PM %Alcohol: <.00 Alcohol: <3 mg/dL Education Materials Accidental Drug Poisoning, Adult Accidental drug poisoning happens when a person accidentally takes too much of a substance, such as a prescription medicine, an vqep-who-dipbwfk medicine, a vitamin, a supplement, or an illegal drug. The effects of drug poisoning can be mild, dangerous, or even deadly. What are the causes? This condition is caused by taking too much of a medicine, illegal drug, or other substance. It often results from: ??? Lack of knowledge about a substance. ??? Using more than one substance at the same time. ??? An error made by the health care provider who prescribed the substance. ??? An error made by the pharmacist who filled the prescription. ??? A lapse in memory, such as forgetting that you have already taken a dose of the medicine. ??? Suddenly using a substance after a long period of not using it. The following substances and medicines are more likely to cause an accidental drug poisoning: ??? Medicines that treat mental problems (psychotropic medicines). ??? Pain medicines. ??? Cocaine. ??? Heroin. ??? Multivitamins that contain iron. ??? Ivyk-jaq-levtiaj cold and cough medicines. What increases the risk? This condition is more likely to occur in: ??? Elderly adults. Elderly adults are at risk because they may: ? Be taking many different medicines. ? Have difficulty reading labels. ? Forget when they last took their medicine. ??? People who use illegal drugs. ??? People who drink alcohol while using illegal drugs or certain medicines. ??? People with certain mental health conditions. What are the signs or symptoms? Symptoms of this condition depend on the substance and the amount that was taken. Common symptoms include: ??? Behavior changes, such as confusion. ??? Sleepiness. ??? Weakness. ??? Slowed breathing. ??? Nausea and vomiting. ??? Seizures. ??? Very large or small eye pupil size. A drug poisoning can cause a very serious condition in which your blood pressure drops to a low level (shock). Symptoms of shock include: ??? Cold and clammy skin. ??? Pale skin. ??? Blue lips. ??? Very slow breathing. ??? Extreme sleepiness. ??? Severe confusion. ??? Dizziness or fainting. How is this diagnosed? This condition is diagnosed based on: ??? Your symptoms. You will be asked about the substances you took and when you took them. ??? A physical exam. You may also have other tests, including: ??? Urine tests. ??? Blood tests. ??? An electrocardiogram (ECG). How is this treated? This condition may need to be treated right away at the hospital. Treatment may involve: ??? Getting fluids and electrolytes through an IV. ??? Having a breathing tube inserted in your airway (endotracheal tube) to help you breathe. ??? Taking medicines. These may include medicines that: ? Absorb any substance that is in your digestive system. ? Block or reverse the effect of the substance that caused the drug poisoning. ??? Having your blood filtered through an artificial kidney machine (hemodialysis). ??? Ongoing counseling and mental health support. This may be provided if you used an illegal drug. Follow these instructions at home: Medicines ??? Take ajvx-ocp-chwbxkm and prescription medicines only as told by your health care provider. ??? Before taking a new medicine, ask your health care provider whether the medicine: ? May cause side effects. ? Might react with other medicines. ??? Keep a list of all the medicines that you take, including mpss-olr-pamgjwg medicines, vitamins, supplements, and herbs. Bring this list with you to all of your medical visits. General instructions ??? Drink enough fluid to keep your urine pale yellow. ??? If you are working with a counselor or mental health professional, make sure to follow his or her instructions. ??? Do not drink alcohol if: ? Your health care provider tells you not to drink. ? You are , may be , or are planning to become . ??? If you drink alcohol, limit how much you have: ? 0???1 drink a day for women. ? 0???2 drinks a day for men. ??? Be aware of how much alcohol is in your drink. In the [place] one drink equals one typical bottle of beer (12 oz), one-half glass of wine (5 oz), or one shot of hard liquor (1?? oz). ??? Keep all follow-up visits as told by your health care provider. This is important. How is this prevented? Get help if you are struggling with: ? Alcohol or drug use. ? Depression or another mental health problem. ??? Keep the phone number of your local poison control center near your phone or on your cell phone. The hotline of the [place] [employer] of Poison Control Centers is . ??? Store all medicines in safety containers that are out of the reach of children. ??? Read the drug inserts that come with your medicines. ??? Create a system for taking your medicine, such as a pillbox, that will help you avoid taking too much of the medicine. ??? Do not drink alcohol while taking medicines unless your health care provider approves. ??? Do not use illegal drugs. ??? Do not take medicines that are not prescribed for you. Contact a health care provider if: ??? Your symptoms return. ??? You develop new symptoms or side effects after taking a medicine. ??? You have questions about possible drug poisoning. Call your local poison control center at . Get help right away if: ??? You think that you or someone else may have taken too much of a substance. ??? You or someone else is having symptoms of drug poisoning. Summary ??? Accidental drug poisoning happens when a person accidentally takes too much of a substance, such as a prescription medicine, an ymge-yev-ldwvvyp medicine, a vitamin, a supplement, or an illegal drug. ??? The effects of drug poisoning can be mild, dangerous, or even deadly. ??? This condition is diagnosed based on your symptoms and a physical exam. You will be asked to tell your health care provider which substances you took and when you took them. ??? This condition may need to be treated right away at the hospital. This information is not intended to replace advice given to you by your health care provider. Make sure you discuss any questions you have with your health care provider. Document Revised: 09/09/2018 Document Reviewed: 08/29/2018 [employer] Patient Education ?? 2020 [employer]. Emergency Awareness and Preventative Care STROKE is an EMERGENCY Every Minute Counts Act FAST and Check for these signs: FACE Does the face look uneven? ARM Does one arm drift down? SPEECH Does their speech sound strange? TIME Call at any sign of stroke Stroke Risk Factors Atrial Fibrillation (irregular heartbeat) Diabetes Family history of stroke Heart Disease Heavy alcohol use High Blood Pressure High Cholesterol Physical inactivity and obesity Smoking Cigarette Smoking The facts are clear, cigarette smoking will shorten your life. Smoking can cause many illnesses along the way. As a healthcare provider, we recommend that you stop smoking. Assistance with quitting is available by contacting 3-505-CUXR-NOW. This is a free resource providing counseling, support, and referral. Or you may contact your personal physician. National Suicide Prevention Lifeline: The National Suicide Prevention Lifeline is a national network of local crisis centers that provides free and confidential emotional support to people in suicidal crisis or emotional distress 24 hours a day, 7 days a week. Don't Wait! Stop a Heart Attack Before it Starts What is a heart attack? A heart attack is damage or to a part of the heart from severely decreased or lack of blood flow to the heart. Over time, arteries can become narrow from the buildup of fat and cholesterol, which is called plaque. The plaque can rupture causing a blood clot to form. When the blood clot forms, the artery can become severely narrowed or completely blocked, causing a heart attack. Heart attack is the leading cause of in the [place]. 85% of muscle damage occurs within the first 2 hours. Delay in the recognition of heart attack symptoms increases the chances of . Know the early symptoms of a heart attack: Nausea Feeling of fullness in chest Jaw Pain Pain that travels down one or both arms Fatigue/being tired Anxiety Back Pain Chest pressure, squeezing, or discomfort Shortness of breath Sweating, or a cold sweat Feeling of impending doom There are unusual signs of a heart attack, too! Women, the elderly, and diabetics may present with atypical symptoms: Fainting/dizziness Weakness Confusion Risk Factors for a Heart Attack Some heart disease risk factors, such as age and family history, cannot be changed. Others, like smoking and lack of exercise, can be changed. Smoking High Cholesterol High Blood Pressure Family History Obesity Age Gender (Males are at higher risk) Lack of Exercise Diabetes Diet Stress Excessive Alcohol Intake If you or someone you know is experiencing the signs and symptoms of a heart attack, DON???T DELAY. Call immediately and seek help. If someone collapses, perform CPR! Do not attempt to drive if you are having symptoms of heart attack. Hands-Only CPR Why Hands-Only CPR? Hands-Only CPR has been shown to be as effective as conventional CPR for cardiac arrests that occur outside of a hospital. Survival depends on immediately receiving CPR from someone nearby. How do you perform Hands-Only CPR? There are two easy steps: Call if you see a teen or adult collapse Push hard and fast in the center of the chest at a beat of 100 beats per minute. Save a life! 4 WAYS TO GET AHEAD OF SEPSIS SEPSIS is a MEDICAL EMERGENCY. Time matters! Infections put you and your family at risk for a life-threatening condition called sepsis. Sepsis is the body's extreme response to an infection. It is life-threatening, and without timely treatment, sepsis can rapidly lead to tissue damage, organ failure, and . Sepsis happens when an infection you already have-in your skin, lungs, urinary tract or somewhere else-triggers a chain reaction throughout your body. 1 PREVENT INFECTIONS Take good care of chronic conditions. Talk to your doctor about getting the recommended vaccines. 2 PRACTICE GOOD HYGIENE Wash your hands frequently. Keep cuts or open sores clean and covered until they are healed. 3 KNOW THE SYMPTOMS Confusion or disorientation Shortness of breath High heart rate Fever, shivering, or feeling very cold Extreme pain or discomfort Clammy or sweaty skin 4 ACT FAST Get medical care IMMEDIATELY if you suspect sepsis or if you have an infection that is not getting better or is getting worse. To learn more about sepsis and how to prevent infections, visit www.cdc.gov/sepsis. The examination and treatment you have received in the Emergency Department has been done to provide an appropriate evaluation and stabilizing treatment on an emergency basis only. Given the limited resources, it is not meant to be a substitute for complete medical care. The follow-up doctor you named will receive a copy of your records and all test reports. IT IS IMPORTANT THAT YOU SCHEDULE A FOLLOW-UP APPOINTMENT AND ARE RE-EVALUATED. You should report any new complaints, symptoms, or remaining problems at that time. IT IS IMPOSSIBLE FOR THE EMERGENCY DEPARTMENT TO RECOGNIZE AND TREAT ALL ELEMENTS OF INJURY OR ILLNESS IN A SINGLE VISIT. If you have been referred to a specialist physician, it means that we believe you may have a condition that requires the expertise of a specialist. These physicians work in partnership with the hospital and have agreed to see referred patients in their office for further evaluation. KEEP IN MIND THAT THE SPECIALIST HAS HIS/HER OWN OFFICE POLICIES WHICH MAY REQUIRE PROPER INSURANCE OR PAYMENT UP FRONT BEFORE THE SPECIALIST WILL SEE YOU. It is your responsibility to call the specialist physician to make an appointment. We do not have the ability to refer patients to specialists/physicians that work with specific insurance companies. Please be advised that all financial charges or billing practices are determined by that practice, not the hospital. If your insurance company requires that you see a specialist from their approved list, it is your responsibility to contact your insurance company to make those arrangements. It is also your responsibility to follow any other requirements of your insurance company necessary to obtain coverage for claims submitted. We will bill your insurance; however, you are responsible today for any co-pay amounts. You will receive a separate bill for any services you may have received including: emergency, radiology, or pathology physicians. Patient Name:CHRISTINE KAN I have received this information and was given the opportunity to ask questions. Patient/Transitional Care Nurse Name: Patient/Transitional Care Nurse Signature: Relationship to Patient: Clinician/Hospital Transitional Care Nurse Signature: Please Provide a Telephone Number Where You Can Be Reached: Is it Permissible To Leave a Message? Date: documented in this encounter Plan of Treatment Not on file documented as of this encounter Visit Diagnoses Not on filedocumented in this encounter
--- OUTSIDE RECORDS SUMMARY | 2025-05-22 08:47 | XMS_ITS | Referral Summary ---
Author Organization [employer] ([place], [place], [place], [place]) Address [address] [place] [address] Care Team Providers Care Dental Assistant Name Role Phone Unavailable Primary Care Provider Unavailabl e Social History Tobacco Use Types Packs/Day Years Used Date Smoking Tobacco: Never Assessed Comments Unknown Sex and Gender Information Value Date Recorded Sex Assigned at Female 04/07/2022 8:50 PM CDT Legal Sex Female 8:50 PM CDT Gender Identity Female 04/07/2022 8:50 PM CDT Sexual Orientation Not on file Plan of Treatment Not on file
--- OUTSIDE RECORDS SUMMARY | 2025-05-22 08:47 | XMS_ITS | Encounter Summary ---
Author Organization [employer] ([place], [place], [place], [place]) Address [address] [place] [address] Care Team Providers Care Heat Treat Technician Name Role Phone Unavailable Primary Care Provider Unavailabl e Encounter Details Date Type Department Care Team (Late st Contact Info) Description 12/29/2020 Transcribed Document [facility] Family Medicine [facility] [place] [address] ProviderZahira MD [address] [place] [address] Social History Tobacco Use Types [...] Conversion Note - Historical ProviderMD - 12/29/2020 5:37 PM CDT ED Discharge Entered On: 12/29/2020 17:37 EDT Performed On: 12/29/2020 17:37 EDT by Hai Yepez RN Discharge Process Patient Disposition : Discharge Patient Education Completed : Yes Teaching Evaluation : Verbalizes understanding IV Discontinued : Yes Nursing Documentation Completed : Yes Hai Yepez RN - 12/29/2020 17:37 EDT ED Discharge Discharge To : Home without planned follow-up Mode Of Departure : Private vehicle Accompanied By : Unaccompanied Discharge Instructions Reviewed With, Opportunity For Questions Given : Patient Prescriptions Given to Patient : No Hai Yepez RN - 12/29/2020 17:37 EDT documented in this encounter Plan of Treatment Not on file documented as of this encounter Visit Diagnoses Not on filedocumented in this encounter
--- OUTSIDE RECORDS SUMMARY | 2025-05-22 08:47 | XMS_ITS | Encounter Summary ---
Author Organization [employer] ([place], [place], [place], [place]) Address [address] [place] [address] Care Team Providers Care Director Call Name Role Phone Unavailable Primary Care Provider Unavailabl e Encounter Details Date Type Department Care Team (Late st Contact Info) Description 12/29/2020 Transcribed Document [facility] Family Medicine [facility] [place] [address] ProviderZahira MD [address] [place] [address] Social History Tobacco Use Types [...] Conversion Note - Historical ProviderMD - 12/29/2020 2:13 PM CDT Patient: CHRISTINE KAN Age: 30 years Sex: Female : 1990 Associated Diagnoses: Accidental medication overdose Author: VENKAT STOUT MD Basic Information Additional information: Chief Complaint from Nursing Triage Note : Chief Complaint 12/29/2020 13:42 EDT Chief Complaint c/o taking a handul of her 60mg duloxetine today at 1130 while fighting with her . unknown amount, swallowed some, spit out some. denies SI i value my life . History of Present Illness The patient presents with accidental ingestion. The substance ingested was Patient states that she has a history of anxiety and is prescribed fluoxetine. She has not been taking it as prescribed and this was the cause of a disagreement an argument between her and her earlier today. She was angry and frustrated over this and to make a point and gesture she pretended to swig of the bottle of medicine in front of her . She had no intentions of taking any of the medication into her mouth however she accidentally did get some of the pills in her mouth. She went to the bathroom spit them out however she states she did swallow several of the pills but is unclear how many. Denies any SI or HI.. The onset was 3 hours ago. The location where the incident occurred was at home. The reason for ingestion was accidental. Prior episodes: none. Therapy today: none. Associated symptoms: none. Review of Systems Constitutional symptoms: No fever, no chills, no sweats, no weakness, no fatigue. Skin symptoms: No rash, Eye symptoms: Vision unchanged, no pain, no discharge, no blurred vision. ENMT symptoms: No ear pain, no sore throat, no nasal congestion. Respiratory symptoms: No shortness of breath, no cough. Cardiovascular symptoms: No chest pain, no palpitations, no syncope. Gastrointestinal symptoms: No abdominal pain, no nausea, no vomiting, no diarrhea. Genitourinary symptoms: No dysuria, no hematuria. Musculoskeletal symptoms: No back pain, no Joint pain. Neurologic symptoms: No headache, no dizziness, no numbness, no weakness. Health Status Allergies: Allergic Reactions (Selected) Severity Not Documented Ultram- Gallbladder problems.. Medications: (Selected) Inpatient Medications Ordered Normal Saline Flush: 10 mL, IV Push, See Comment. Past Medical/ Family/ Social History Surgical history: No active procedure history items have been selected or recorded., Reviewed as documented in chart. Family history: No family history items have been selected or recorded., Reviewed as documented in chart. Social history: Social & Psychosocial Habits No Data Available , Reviewed as documented in chart. Problem list: Active Problems (2) Anxiety Depression , per nurse's notes. Physical Examination Vital Signs Vital Signs/Vital Measures 12/29/2020 13:42 EDT Systolic Blood Pressure 141 mmHg HI Diastolic Blood Pressure 90 mmHg Temperature Source Temporal artery scanning Temperature Mode Fahrenheit Temperature, Fahrenheit 98.1 Deg F Clinical Temperature, C 36.7 Deg C Peripheral Pulse Rate 103 bpm HI Respiratory Rate 15 Breaths/Min Oxygen Saturation 99 % Oxygen Therapy Mode Room air . Measurements 12/29/2020 13:42 EDT Height Source Stated Height Entry Format [place] Height/Length, CHADIAN (ft) 5 ft Height/Length CHADIAN 7 Inch CLINICALHEIGHT 170.18 cm [place] Body Weight 61.16 kg Weight Source, ED Critical estimated dosing weight Weight Entry Format Kerri Weight Slovenian lb 250 lb CLINICALWEIGHT 113.64 kg Body Surface Area (BSA) 2.23 m2 Body Mass Index 39.2 kg/m2 HI . Oxygen Saturation 12/29/2020 13:42 EDT Oxygen Saturation 99 % . General: Alert, no acute distress. Phoenix coma scale: Total score: Total score: 15. Neurological: Alert and oriented to person, place, time, and situation, No focal neurological deficit observed, CN II-XII intact, normal sensory observed, normal motor observed, normal speech observed, normal coordination observed. Skin: Warm. Head: Normocephalic. Neck: Supple. Eye: Sclera: not icteric. Ears, nose, mouth and throat: Oral mucosa moist. Cardiovascular: Regular rate and rhythm, No murmur, Normal peripheral perfusion, No edema. Respiratory: Lungs are clear to auscultation, respirations are non-labored, breath sounds are equal. Chest wall: No tenderness. Back: Nontender. Gastrointestinal: Soft, Nontender, Non distended, Normal bowel sounds. Lymphatics: No lymphadenopathy. Psychiatric: Cooperative. Medical Decision Making Documents reviewed: Emergency department nurses' notes. Electrocardiogram: Time 12/29/2020 14:24:00, rate 87, normal sinus rhythm, No ST changes, no ectopy, normal TN & QRS intervals, EP Interp. Results review: Lab results : Lab Results 12/29/2020 14:25 EDT Sodium Level 141 mmol/L Potassium Level 3.8 mmol/L Chloride Level 111 mmol/L Carbon Dioxide Level 26 mmol/L Anion Gap 8 LOW Glucose Level 100 mg/dL Blood Urea Nitrogen 7 mg/dL Creatinine Level 0.90 mg/dL eGFR >60 mL/min/1.73m2 eGFR NonAfrican >60 mL/min/1.73m2 Bun/Creatinine 7.8 LOW Calcium Level 8.7 mg/dL WBC 10.4 K/uL RBC 4.60 Million/uL Hgb 11.7 g/dL Hct 37.4 % MCV 81.3 fL MCH 25.4 pg LOW MCHC 31.3 Gram/dL LOW Platelet Count 506 K/uL HI MPV 9.1 fL LOW RDW 16.0 % HI Neut % 77.8 % HI Neut # 8.06 K/uL HI Lymph % 14.6 % LOW Lymph # 1.51 x10(3)/uL Elk % 5.3 % Elk # 0.55 K/uL Eos % 0.8 % Eos # 0.08 x10(3)/uL Baso % 0.7 % Baso # 0.07 x10(3)/uL Slide Review No IG# 0.08 x10(3)/uL HI IG% 0.80 % HI Alcohol <3 mg/dL NA %Alcohol <.00 NA . Impression and Plan Diagnosis Accidental medication overdose - Discharge, Medical Plan Condition: Stable. Disposition: Discharged Admit/Transfer/Discharge: Discharge (Order): Start: 12/29/2020 17:22 EDT, Discharge to: Home. Patient was given the following educational materials: Accidental Drug Poisoning, Adult. Follow up with: ; Find a Doc ([facility]) Within 2 to 3 days. Counseled: Patient, Regarding diagnosis, Regarding diagnostic results, Regarding treatment plan, Patient indicated understanding of instructions. Notes: Patient presented after an accidental potential overdose of her fluoxetine. She had taken a mouthful of pills on accident but spent most of them out. She was unsure of how many tablets she did accidentally swallowed. No SI or HI. Calm and appropriate in ER. Observed in the ER until over 6 hours from the time of possible ingestion. This is peak onset of action for this medication. Patient has had no signs or symptoms of serotonin syndrome. Awake alert x3 with normal logic exam and vital signs. Discharged home where her will be with her. Given clear follow-up and return precautions.. documented in this encounter Plan of Treatment Not on file documented as of this encounter Visit Diagnoses Not on filedocumented in this encounter
--- OUTSIDE RECORDS SUMMARY | 2025-05-22 08:47 | XMS_ITS | Clinical Summary ---
Author Organization [facility] Address [address] [place] [address] Care Team Providers Care Lumber Handler Name Role Phone Yaw Rubio MD Primary Care Provider [phone] Allergies Active Allergy Reactions Criticality Noted Date Comments Tramadol Other (See Comments) 02/16/2017 causes problems with my gallbladder Medications carisoprodol (SOMA) 350 MG tablet Take 1 tablet by mouth 4 (Four) Times a Day As Needed for Muscle Spasms. 35 tablet 02/17/2017 Active Active Problems No known active problems Social History Tobacco Use Types Packs/Day Years Used Date Smoking Tobacco: Former Cigarettes Q uit: 12/09/2016 Smokeless Tobacco: Never Tobacco Cessation:Counseling Given: No Alcohol Use Standard Drinks/Week Comments No 0 (1 standard drink = 0.6 oz pur e alcohol) Abuse Screen Answer Date Recorded Unsafe at Home or Work/School Not on file Feels Threatened by Someone? Not on file 06/2023 Does Anyone Keep You from Co ntacting Others or Doint Things Outside the Home? Not on file 07/19/2023 Physical Sign of Abuse Present Not on file 1 Housing Stability Answer Date Recorded Current Living Arrangements Not on file 06/2023 Potentially Unsafe Housing Conditions Not on alka e 07/19/2023 Family and Community Support Answer Jos e Recorded Help with Day-to-Day Activities Not on file 07/19/2023 Lonely or Isolated Not on file 07/19/2023 Employment Answer Date Recorded Do you want help finding or keeping work or a marisel b? Not on file 07/19/2023 Disabilities Answer Date Recorded Concentrating, Remembering, or Making Decisions Difficulty Not on file 07/19/2023 Doing Errands Independently Difficulty Not on fi le 07/19/2023 Education Answer Date Recorded Help with school or training? Not on file Preferred Language Not on file 07/19/2023 Comments Unknown Sex and Gender Information Value Date Recorded Sex Assigned at Not on file Legal Sex Female 10:25 AM EDT Gender Identity Not on file Sexual Orientation Not on file Last Filed Vital Signs Vital Sign Reading Time Taken Comments Blood Pressure 118/65 02/17/2017 4:10 PM EDT Pulse 100 02/17/2017 4:10 PM EDT Temperature 36.6 C (97.8 F) 02/17/2017 4:10 PM EDT Respiratory Rate 18 02/17/2017 4:10 PM EDT Oxygen Saturation 93% 02/17/2017 4:10 PM EDT Inhaled Oxygen Concentration - - Weight 107 kg (235 lb) 02/17/2017 9:10 AM EDT Height 170.2 cm (5' 7 ) 02/17/2017 9:10 AM EDT Body Mass Index 36.81 02/17/2017 9:10 AM EDT Plan of Treatment Health Maintenance Due Date Last Done Comments Annual Gynecologic Pelvic an d Breast Exam 1990 TDAP/TD VACCINES (1 - Tdap) 2008 ANNUAL PHYSICAL 02/17/2017 HEPATITIS C SCREENING 02/17/2017 COVID-19 Vaccine ( - 2023-2 5 season) 2024 INFLUENZA VACCINE 07/11/2025 Pneumococcal Vaccine 0-49 Aged Out No longer eligible based on patient's age to complete this topic Insurance QUINTIN JARAMILLOSATYA READ [id number] [facility] [place] [address] Care Teams Lumber Handler Relationship Specialty Start Date End Date Yaw Rubio MD [address] [facility] [address] [place] [id number] PCP - General Family Medicine 02/15/17
--- OUTSIDE RECORDS SUMMARY | 2025-05-22 08:47 | XMS_ITS | Encounter Summary ---
Author Organization [employer] ([place], [place], [place], [place]) Address [address] [place] [address] Care Team Providers Care Pension Consultant Name Role Phone Unavailable Primary Care Provider Unavailabl e Encounter Details Date Type Department Care Team (Late st Contact Info) Description 12/29/2020 Transcribed Document [facility] [place] Medicine [facility] [place] [address] ProviderZahira MD [address] [place] [address] Social History Tobacco Use Types [...] Note - Zahira Watts MD - 12/29/2020 5:28 PM CDT [facility] [place] [address] JOSE DE JESUSJOELLENSOHAIL CHRISTINE :1990 Visit [...] 3 days Where: [place] [address] [phone] Business (1) Allergies Ultram (gallbladder problems) Immunizations [...] range between ( 0.0 and 7.0 ) Gentry #: 0.55 K/uL -- Normal range between ( 0.16 and 1.00 ) Eos #: 0.08 x10(3)/uL -- Normal range between ( 0.00 and 0.80 ) Gentry %: 5.3 % -- Normal range between [...] substance, such as a prescription medicine, an vcck-eix-zuqaqis medicine, a vitamin, a supplement, or an [...] Heroin. ??? Multivitamins that contain iron. ??? Eoqh-ruf-lkspwat cold and cough medicines. What increases the [...] these instructions at home: Medicines ??? Take fpcj-zhi-zbzlcoa and prescription medicines only as told by your health care provider. ??? Before taking a new medicine, ask your health care provider whether the medicine: ? May cause side effects. ? Might react with other medicines. ??? Keep a list of all the medicines that you take, including yjyd-ace-dkxxvwv medicines, vitamins, supplements, and herbs. Bring this [...] your cell phone. The hotline of the [employer] is . [...] substance, such as a prescription medicine, an sedq-azn-gixllod medicine, a vitamin, a supplement, or an [...] provider. Document Revised: 09/09/2018 Document Reviewed: 08/29/2018 [employer] Patient Education ?? 2020 Tribe. Emergency Awareness and Preventative Care STROKE is [...] Assistance with quitting is available by contacting 5-789-IPAG-NOW. This is a free resource providing counseling, [...] was given the opportunity to ask questions. Patient/Centerless Grinder Name: Patient/Centerless Grinder Signature: Relationship to Patient: Clinician/Hospital Centerless Grinder Signature: Please Provide a Telephone Number Where You Can Be Reached: Is it Permissible To Leave a Message? Date: documented in this encounter Plan of Treatment Not on file documented as of this encounter Visit Diagnoses Not on filedocumented in this encounter
--- OUTSIDE RECORDS SUMMARY | 2025-05-22 08:47 | XMS_ITS | Encounter Summary ---
Author Organization [employer] ([place], [place], [place], [place]) Address [address] [place] [address] Care Team Providers Care Global Implementation Manager Name Role Phone Unavailable Primary Care Provider Unavailabl e Encounter Details Date Type Department Care Team (Late st Contact Info) Description 12/29/[address] [facility] Family Medicine [address] [place] [address] ProviderZahira MD [address] [place] [address] Social History Tobacco Use Types [...] Historical ProviderMD - 12/29/2020 1:37 PM CDT Broset Violence Assessment Entered On: 12/29/2020 14:28 EDT Performed On: 12/29/2020 14:27 EDT by Hai Yepez RN Broset Violence Assessment Broset Violence Checklist of Symptoms : None Broset Violence Symptoms Subtotal : 0 Broset Violence Symptoms Indicator : Low risk (0) Hai Yepez RN - 12/29/2020 14:27 EDT documented in this encounter Plan of Treatment Not on file documented as of this encounter Visit Diagnoses Not on filedocumented in this encounter
--- OUTSIDE RECORDS SUMMARY | 2025-05-22 08:47 | XMS_ITS | Clinical Summary ---
Author Organization [employer] ([place], [place], [place], [place]) Address [address] [place] [address] Care Team Providers Care Banking Attorney Name Role Phone Unavailable Primary Care Provider [...]
--- NOTE | 2025-05-22 09:02 | HMH.EDGENADL ---
Discharge Plan Disposition Patient Disposition: Home, Self-Care Prescriptions Prescriptions: New cefdinir 300 mg capsule 300 mg PO BID 10 Days Qty: 20 0RF No Action losartan 25 mg tablet 25 mg PO DAILY Qty: 30 3RF Vraylar 3 mg capsule 3 mg PO DAILY Qty: 30 2RF Saxenda 3 mg/0.5 mL (18 mg/3 mL) pen injector See Rx Instructions SQ .COMPLEX Qty: 15 2RF Rx Instructions: inject subcutaneously once daily: week 1 = 0.6 mg; week 2 = 1.2 mg; week 3 = 1.8 mg; week 4 = 2.4 mg; then 3 mg daily SQ cholecalciferol (vitamin D3) 50 mcg (2,000 unit) capsule 50 mcg PO DAILY Qty: 90 3RF ergocalciferol (vitamin D2) 1,250 mcg (50,000 unit) capsule 1,250 mcg PO WEEKLY Qty: 14 3RF ferrous sulfate 325 mg (65 mg iron) tablet 325 mg PO DAILY Qty: 30 0RF (DME) pen needle, diabetic [Comfort EZ Pen Minoa] 29 gauge x 1/2 needle See Rx Instructions .Route Qty: 100 0RF Rx Instructions: As directed aspirin [Aspir-81] 81 mg Tablet,Delayed Release (Dr/Ec) 81 mg PO DAILY Referrals Follow up/Referrals: Em Delcid PA [Primary Care Provider, Medical] - See instructions Activity Restrictions/Add. Instructions Additional Instructions/Restrictions: As discussed your symptoms are consistent with a complicated urinary tract infection, or pyelonephritis. Return with inability to keep her fever down with Tylenol and ibuprofen. I also as discussed recommend that you stop your Levaquin given the resistance and side effect profile. Please take your cefdinir until completion. Return to the emergency with any significant worsening of your symptoms. Clinical Impressions Clinical Impression: Pyelonephritis Instructions Patient Instructions: DI for Acute Abdominal Pain Print Language Print Language: Greek Discharge ED Provider: Nya Parisi General Adult HPI General Chief complaint: Abdominal Pain Stated complaint: UTI ,headache,nausea,back pain Time Seen by Provider: 05/22/25 08:52 Mode of Arrival: Ambulatory Source of Information: Patient Description of Symptoms (Recalled from ER Triage Doc. by RN): pt presents to ED with c/o headache intermittent for 1 week; neck stiffness that began yesterday; lower back pain intermittent for the past couple of days . pt reports she may have a kidney infection, no history of kidney stones. pt reports difficulty and pressure with urination ongoing for the past week. pt reports seeing her pcp yesterday and was given an abx shot but pt unsure of what it was. pt states that she feels like she has a uti and the flu. History of Present Illness HPI narrative: Patient is a 34-year-old female present today with multiple complaints. Was diagnosed yesterday with urinary tract infection and prescribed Levaquin. Had a dose of Rocephin in the office yesterday. States that she has had about 9 days of symptoms for started after she had about a 4-hour time on an airplane where [place] was [place] the beach and had some lower extremity/foot swelling that is since resolved. Since that time she has had some lower back discomfort particular on the left side. The pain is not coming and going in any colicky fashion and is a dull achy pain that is constant. She also has had some urinary urgency. Had a fever yesterday 102.3 she took antipyretics late last night but not since yesterday. She also states that she has had a headache and her neck has been relatively stiff but no photophobia. Related Data Home Medications ?Medication ?Instructions ?Recorded ?Confirmed aspirin 81 mg tablet,delayed 81 mg PO DAILY 09/16/23 09/21/23 release Previous Rx's ?Medication ?Instructions ?Recorded cholecalciferol (vitamin D3) 50 50 mcg PO DAILY #90 caps 08/13/23 mcg (2,000 unit) capsule ergocalciferol (vitamin D2) 1,250 1,250 mcg PO WEEKLY #14 caps 08/13/23 mcg (50,000 unit) capsule ferrous sulfate 325 mg (65 mg 325 mg PO DAILY #30 tabs 08/13/23 iron) tablet losartan 25 mg tablet 25 mg PO DAILY #30 tabs 09/08/23 cariprazine 3 mg capsule (Vraylar) 3 mg PO DAILY #30 caps 09/21/23 liraglutide (weight loss) 3 mg/0.5 See Rx Instructions SQ .COMPLEX 09/21/23 mL (18 mg/3 mL) subcut pen #15 mL injector (Saxenda) pen needle, diabetic 29 gauge x #100 ea 09/29/2310/12 (Comfort EZ Pen Minoa) cefdinir 300 mg capsule 300 mg PO BID 10 days #20 caps 05/22/25 Allergies Allergy/AdvReac Type Severity Reaction Status Date / Time tramadol (From [facility]) Allergy Unknown Verified 09/21/23 14:13 [facility] Disclaimer: The information contained in this section may have been updated after the patient was seen, as this information can be updated by other users. Medical History (Updated 05/22/25 @ 09:01 by Nya Parisi MD) Anxiety Surgical History (Updated 09/16/23 @ 07:16 by Yaw Barahona RN) History of H/O bilateral breast reduction surgery Family History Other Coronary artery disease Heart attack Hypertension Social History (Updated 09/16/23 @ 07:17 by Yaw Barahona RN) Smoking Status: Never smoker alcohol intake: never substance use type: denies use current occupational status: employed Travel in the last 8 weeks?: None household members: family housing: house Have you lived/traveled outside US in past 30 days?: No Contact w/someone who lives/traveled outside US past 30 days?: No Exposure to someone with infectious disease in past 14 days?: No Do you have a fever (greater than 100.4 F or 38 C)?: No Have you tested positive for COVID-19?: No Exposed to someone with COVID-19 in past 14 days?: No Do you have a sore throat?: No Do you have a cough?: No Do you have any weakness?: No Do you have any diarrhea?: No Are you experiencing any unusual bleeding?: No Do you have any muscle aches/pain?: No Do you have any abdominal pain?: No Are you experiencing loss of taste or smell?: No Other Medical History Have you received the Flu Vaccine for this season: No Have you received the Pneumonia Vaccine: No ROS Obtained: Yes All systems reviewed & no additional complaints except as documented Physical Exam General General appearance: alert and in no apparent distress Neck Neck exam: Absent meningismus Respiratory Respiratory exam: Present normal lung sounds bilaterally; Absent respiratory distress Cardiovascular Cardiovascular exam: Present regular rate and normal rhythm Abdominal Exam Abdominal exam: Present soft; Absent distention or tenderness Back Exam Back exam: Absent CVA tenderness (R) or CVA tenderness (L) Neurological Exam Neurological exam: Present alert and oriented X3 Medical Decision Making Medical Records Screening: Per USPSTF and CDC recommendations, given the prevalence of disease in our region, it is our hospital?s policy to screen for HIV and viral Hepatitis for all patients aged 18 and over and those with ongoing risk factors. Helio Inquiry Pt receiving controlled substance: No Vital Signs: 05/22/25 08:40 05/22/25 08:45 Temperature 98.5 F Temperature Source Oral Pulse Rate 107 H Pulse Rate [Left Radial] 92 H Respiratory Rate 19 Blood Pressure 154/101 H Blood Pressure [Right Arm] 154/101 H Blood Pressure Mean [Right Arm] 118 Blood Pressure Source [Right Arm] Automatic Cuff Blood Pressure Position [Right Arm] Supine 02 Sat by Pulse Oximetry 99 96 Oxygen Delivery Method Room Air Lab Data Lab results reviewed: Yes I reviewed the patient's lab results. Lab Results 05/22/25 08:42: Urine Color Yellow, Urine Appearance Sl cloudy, Urine pH 6.0, Ur Specific [place] 1.025, Urine Protein 1+ A, Urine Glucose (UA) Trace, Urine Ketones Negative, Urine Blood Trace-i, Urine Nitrate Positive A, Urine Bilirubin Negative, Urine Urobilinogen 2.0, Ur Leukocyte Esterase 1+ A, Urine RBC None, Urine WBC 3-5, Ur Squamous Epith Cells 3-5, Urine Bacteria 3+ 05/22/25 08:52: WBC 6.4, RBC 4.71, Hgb 12.4, Hct 38.1, MCV 80.9 L, MCH 26.3 L, MCHC 32.5, RDW 14.0, Plt Count 323, MPV 9.1, Neut % (Auto) 83.2 H, Lymph % (Auto) 9.6 L, [place] % (Auto) 6.1, Eos % (Auto) 0.5, Baso % (Auto) 0.3, Neut # (Auto) 5.4, Lymph # (Auto) 0.6 L, [place] # (Auto) 0.4, Eos # (Auto) 0.0, Baso # (Auto) 0.0, Lactate 2.0 05/22/25 : Sodium 137, Potassium 3.2 L, Chloride 99, Carbon Dioxide 27, Anion Gap 14.2, BUN 8, Creatinine 1.00, Estimated Creat Clear 146, Estimated GFR 63, Est GFR ( Amer) 76, Glucose 176 H, Calcium 9.0, Total Bilirubin 0.9, AST 29, ALT 32, Alkaline Phosphatase 97, Total Protein 7.0, Albumin 4.1, Globulin 2.9, Albumin/Globulin Ratio 1.4 05/22/25 08:52 05/22/25 Unknown Orders (Tests/Meds): ED MEDICATIONS Discontinued Medications Generic Name Dose Route Start Last Admin Trade Name Freq PRN Reason Stop Dose Admin Acetaminophen 1,000 mg 05/22/25 09:00 05/22/25 09:10 Acetaminophen 1,000mg/100ml Vial IV 05/22/25 09:01 1,000 mg ONCE ONE Administration Cefdinir 300 mg 05/22/25 09:55 Cefdinir 300mg Capsule PO 05/22/25 09:56 ONCE ONE Lactated Ringer's 1,000 mls @ 999 mls/hr 05/22/25 09:00 05/22/25 09:10 Lactated Ringer's 1000 Ml Bag IV 05/22/25 10:00 999 mls/hr .Q1H1M JODI Administration ORDERS Category Date Time Status CBC w/Auto Diff [Complete Blood Count Auto Diff] Stat Lab 05/22/25 08:52 Completed CMP [Comprehensive Metabolic Panel] Stat Lab 05/22/25 Completed Lactic Acid Stat Lab 05/22/25 08:52 Completed UA [Urinalysis and Microscopic] Stat Lab 05/22/25 08:42 Completed Blood Culture Stat Micro 05/22/25 09:12 Received Urine Culture Stat Micro 05/22/25 08:42 Received Medical Decision Narrative: The patient with above history and physical she is very well-appearing on my exam. She has no CVA tenderness is afebrile was not tachycardic. However she did have a fever of 102.3 yesterday. Given the fact that she has a diagnosis of UTI and her urine is already back on my initial evaluation this is consistent with pyelonephritis. It is possible she is bacteremic which is causing her systemic symptoms. Blood cultures have been sent. Additionally she initially complained of lower extremity swelling we will make sure she does not have any significant renal dysfunction or nephrotic syndrome we will check her total protein levels as well as a CMP and her renal function. IV fluids and Tylenol will be administered. She had Rocephin yesterday and Levaquin. Given the regional resistance to fluoroquinolones likely will change her antibiotic to cefdinir for 10 to 14 days. Reassessment 10:03 AM patient remains very stable labs unremarkable particular from a sepsis standpoint she remains without tachycardia tachypnea fever or leukocytosis. No evidence clinically of meningismus or meningitis. Is possible she is bacteremic however no indication for admission in this young healthy patient. She does have some mild elevation in her glucose which is somewhat abnormal advised her to follow-up with her primary care doctor regarding this. This not diagnostic of diabetes but could be indicative of prediabetes. Potassium very mildly elevated which will be corrected with normal diet. Given the fact that she was recently on Levaquin and the resistance pattern in our region and the side effect profile we will discontinue this and have her take cefdinir. First dose given in the emergency department prescription sent for 10 days she has been advised to complete this. Patient discharged in stable condition. Critical Care Critical Care Time Critical Care Time: Yes Attestation: On 05/22/25, the high probability of a clinically significant, sudden or life threatening deterioration of the following system(s) required my full and direct attention, intervention and personal management. The time I documented below is in addition to time spent performing reported procedures but includes the following listed in this critical care notation. Total Time Total Critical Care Time: 35
[2025-05-22 09:07] LABS: Chloride 99 mmol/L (98-107); Potassium 3.2 mmoL/L (3.5-5.1); Sodium 137 mmol/L (136-145)
[2025-05-22 09:10] LABS: Alanine Aminotransferase 32 U/L (12-78); Alkaline Phosphatase 97 U/L (38-126); Aspartate Amino Transferase 29 U/L (14-36); Bilirubin,Total 0.9 mg/dl (0.2-1.3); Blood Urea Nitrogen 8 mg/dl (7-17); Carbon Dioxide 27 mmol/L (22.0-30.0); Creatinine Clearance Estimated 146 mL/min (50-200); Creatinine,Serum 1.00 mg/dl (0.52-1.04); Estimated Glomerular Filt Rate 63 ml/min (>60); GFR (African American) 76 ML/MIN (>60); Total Protein,Serum 7.0 g/dl (6.3-8.2)
[2025-05-22] MEDS: LACTATED RINGERS 1000ML 1,000 ML 999 ML IV (09:10)
[2025-05-22] MEDS: ACETAMINOPHEN 1,000MG/100ML VIAL 1000 MG IV (09:10)
[2025-05-22 09:11] LABS: Calcium 9.0 mg/dl (8.4-10.2); Glucose 176 mg/dl (74-100)
[2025-05-22 09:12] LABS: Bacteria,Urine 3+ /lpf
[2025-05-22 09:13] LABS: Hematocrit 38.1 % (37.0-47.0); Hemoglobin 12.4 g/dL (12.2-16.2); Immature Granulocytes % 0.3 %; Mean Corpuscular HGB Conc 32.5 g/dL (31.8-35.4); Mean Corpuscular Hemoglobin 26.3 pg (27.0-31.2); Mean Corpuscular Volume 80.9 fl (81-99); Nucleated Red Blood Cells % 0 %; Platelet Count 323 K/mm3 (142-424); Red Blood Count 4.71 M/mm3 (4.20-5.40); Red Cell Distribution Width-SD 40.9 fL; White Blood Count 6.4 K/mm3 (4.8-10.8)
[2025-05-22 09:17] LABS: Anion Gap 14.2 mEq/L (5-15)
[2025-05-22 09:46] LABS: Albumin Level 4.1 g/dl (3.5-5.0); Albumin/Globulin Ratio 1.4 (1.1-1.8); Globulin 2.9 g/dL (1.3-3.2)
[2025-05-22] MEDS: CEFDINIR 300MG CAPSULE 300 MG PO (10:05)
[2025-05-22 10:15] VITALS: BP 131/83; PULSE 72; RESP 14; TEMP 36.8; O2SAT 98
== END 2025-05-22 10:20 | disposition home or self-care (01) ==
PROVIDERS: Emergency Provider Student in an Organized Health Care Education/Training Program; PCP Physician Assistant
DX: N10 Acute pyelonephritis (principal); R39.15 Urgency of urination; R50.9 Fever, unspecified; M54.59 Other low back pain
CPT/HCPCS: 80053; 81001; 83605; 85025; 87040; 87086; 96361; 96374; 99284; J0131; J7120

== ENCOUNTER 2025-05-30 10:07 | Outpatient (CLI) | payer BC, SELFPAY ==
--- OUTSIDE RECORDS SUMMARY | 2025-05-30 10:29 | XMS_ITS | Clinical Summary ---
Author Organization [facility] Address [address] [place] [address] Care Team Providers Care Singe Winder Name Role Phone Yaw Rubio MD Primary Care Provider [phone] [phone] Allergies Active Allergy Reactions Criticality Noted Date [...] e 07/19/2023 Family and Community Support Answer Ojs e Recorded Help with Day-to-Day Activities Not [...] complete this topic Insurance [place] [id number] [facility] [employer] Care Teams Singe Winder Relationship Specialty Start Date End Date Yaw Rubio MD [address] [facility] [address] [place] [id number] PCP - General Family Medicine 02/15/17
[2025-05-30] MEDS: IRON SUCROSE COMPLEX 300 MG in 0.9 % SODIUM CHLORIDE 250 ML 176.67 MG IV (10:34)
[2025-05-30 10:35] VITALS: BP 123/65; PULSE 68; RESP 18; TEMP 36.7; O2SAT 99
[2025-05-30 11:05] VITALS: BP 141/64; PULSE 70
[2025-05-30 11:30] VITALS: BP 137/64; PULSE 68
[2025-05-30 11:50] VITALS: BP 134/69; PULSE 69
[2025-05-30] MEDS: SODIUM CHLORIDE 0.9% 10ML FLUSH SYRINGE 10 ML IV (11:56)
== END 2025-05-30 12:00 | disposition home or self-care (01) ==
PROVIDERS: PCP Physician Assistant; Visit Provider Physician Assistant
DX: Z00.00 Encounter for general adult medical examination without abnormal findings (principal); N92.0 Excessive and frequent menstruation with regular cycle; Z12.4 Encounter for screening for malignant neoplasm of cervix
CPT/HCPCS: 96365; J1756; J7050

== ENCOUNTER 2025-06-01 07:30 | Outpatient (CLI) | payer BC, SELFPAY ==
--- OUTSIDE RECORDS SUMMARY | 2025-06-01 07:32 | XMS_ITS | Clinical Summary ---
Author Organization [employer] ([place], [place], [place], [place]) Address [address] [place] [address] Care Team Providers Care Register Of Deeds Name Role Phone Unavailable Primary Care Provider [...]
--- OUTSIDE RECORDS SUMMARY | 2025-06-01 07:32 | XMS_ITS | Encounter Summary ---
Author Organization [employer] ([place], [place], [place], [place]) Address [address] [place] [address] Care Team Providers Care Office Assistance Name Role Phone Unavailable Primary Care Provider Unavailabl e Encounter Details Date Type Department Care Team (Late st Contact Info) Description 12/29/2020 Transcribed Document [facility] [place] Family Medicine [place] [address] ProviderZahira MD [address] [place] [address] Social History Tobacco Use Types [...] Watts MD - 12/29/2020 5:[address] [place] [address] JOSE DE JESUSJOELLENSOHAIL CHRISTINE :1990 Visit [...] 3 days Where: [place] [address]- [phone] Business (1) Allergies Ultram (gallbladder problems) Immunizations [...] range between ( 0.0 and 7.0 ) [place] #: 0.55 K/uL -- Normal range between ( 0.16 and 1.00 ) Eos #: 0.08 x10(3)/uL -- Normal range between ( 0.00 and 0.80 ) [place] %: 5.3 % -- Normal range between [...] substance, such as a prescription medicine, an bmuc-gmt-uxiriyu medicine, a vitamin, a supplement, or an [...] Heroin. ??? Multivitamins that contain iron. ??? Vwwj-uko-annblte cold and cough medicines. What increases the [...] these instructions at home: Medicines ??? Take krmm-iys-aottxbw and prescription medicines only as told by your health care provider. ??? Before taking a new medicine, ask your health care provider whether the medicine: ? May cause side effects. ? Might react with other medicines. ??? Keep a list of all the medicines that you take, including wvti-twn-iqnjdmp medicines, vitamins, supplements, and herbs. Bring this [...] your cell phone. The hotline of the [place] [employer] is . [...] substance, such as a prescription medicine, an ihwb-prv-exzjzzq medicine, a vitamin, a supplement, or an [...] provider. Document Revised: 09/09/2018 Document Reviewed: 08/29/2018 [employer] Patient Education ?? 2020 [employer]. Emergency Awareness and Preventative Care STROKE is [...] Assistance with quitting is available by contacting 7-788-VPIA-NOW. This is a free resource providing counseling, [...] was given the opportunity to ask questions. Patient/Founder & Ceo Name: Patient/Founder & Ceo Signature: Relationship to Patient: Clinician/Hospital Founder & Ceo Signature: Please Provide a Telephone Number Where You Can Be Reached: Is it Permissible To Leave a Message? Date: documented in this encounter Plan of Treatment Not on file documented as of this encounter Visit Diagnoses Not on filedocumented in this encounter
--- OUTSIDE RECORDS SUMMARY | 2025-06-01 07:32 | XMS_ITS | Referral Summary ---
Author Organization [employer] ([place], [place], [place], [place]) Address [address] [place] [address] Care Team Providers Care Production Dispatcher Name Role Phone Unavailable Primary Care Provider [...]
--- OUTSIDE RECORDS SUMMARY | 2025-06-01 07:32 | XMS_ITS | Encounter Summary ---
Author Organization [employer] ([place], [place], [place], [place]) Address [address] [place] [address] Care Team Providers Care Metal Wire Coating Operator Name Role Phone Unavailable Primary Care Provider Unavailabl e Encounter Details Date Type Department Care Team (Late st Contact Info) Description 12/29/2020 Transcribed Document [facility] [place] Family Medicine [address] [place] [address] ProviderZahira MD [address] [place] [address] Social History Tobacco Use Types [...] Performed On: 12/29/2020 14:27 EDT by Hai eYpez RN Broset Violence Assessment Broset Violence Checklist of Symptoms : None Broset Violence Symptoms Subtotal : 0 Broset Violence Symptoms Indicator : Low risk (0) Hai Yepez RN - 12/29/2020 14:27 EDT documented in this encounter Plan of Treatment Not on file documented as of this encounter Visit Diagnoses Not on filedocumented in this encounter
--- OUTSIDE RECORDS SUMMARY | 2025-06-01 07:32 | XMS_ITS | Encounter Summary ---
Author Organization [employer] ([place], [place], [place], [place]) Address [address] [place], [place] Care Team Providers Care Back Feeder Plywood Layup Line Name Role Phone Unavailable Primary Care Provider Unavailabl e Encounter Details Date Type Department Care Team (Late st Contact Info) Description 12/29/2020 Transcribed Document [facility] [place] Family Medicine [facility] [place] [address] ProviderZahira MD [address] [place] [address] Social History Tobacco Use Types [...]
--- OUTSIDE RECORDS SUMMARY | 2025-06-01 07:32 | XMS_ITS | Encounter Summary ---
Author Organization [employer] ([place], [place], [place], [place]) Address [address] [place] [address] Care Team Providers Care Driller Multiple Spindle Name Role Phone Unavailable Primary Care Provider Unavailabl e Encounter Details Date Type Department Care Team (Late st Contact Info) Description 12/29/2020 Transcribed Document [facility] [place] Family Medicine [address] [place] [address] ProviderZahira MD [address] [place] [id number] Social History Tobacco Use Types Packs/Day Years [...] Historical ProviderMD - 12/29/2020 1:37 PM CDT [place] Suicide Severity Rating Scale (C-SSRS) Entered On: 12/29/2020 14:29 EDT Performed On: 12/29/2020 14:27 EDT by Hai Yepez RN [place] Suicide Severity Rating Scale (C-SSRS) CSSRS Past Month Wish to be : No CSSRS Past Month Suicidal Thoughts : No CSSRS Lifetime Suicide Behavior : No Suicide Severity Rating Score : 0 Suicide Severity Rating : No Additional Care Required at this time Hai Yepez RN - 12/29/2020 14:27 EDT Electronically signed by Maurisio [facility] Conversion Imaging Science Professor Cerner at 01/26/2023 1:13 PM CDT documented in this encounter Plan of Treatment Not on file documented as of this encounter Visit Diagnoses Not on filedocumented in this encounter
--- OUTSIDE RECORDS SUMMARY | 2025-06-01 07:32 | XMS_ITS | Encounter Summary ---
Author Organization [employer] ([place], [place], [place], [place]) Address [address] [place] [address] Care Team Providers Care Supervisor Beehive Kiln Name Role Phone Unavailable Primary Care Provider Unavailabl e Encounter Details Date Type Department Care Team (Late st Contact Info) Description 12/29/[address] [facility] [place] Family Medicine [facility] [place] [address] ProviderZahira MD [address] [place] [address] Social History Tobacco Use Types [...] Communication Barrier : None Primary Language : Yakut Any Spiritual/Cultural Needs or Requests : No [...] ASMT, ED Neurologic Assessment WDL : Hai Simspon RN - 12/29/2020 14:27 EDT Electronically signed by Catarino Forde Conversion Multimedia Production Assistant Cerner at 01/26/2023 1:31 PM CDT documented in this encounter Plan of Treatment Not on file documented as of this encounter Visit Diagnoses Not on filedocumented in this encounter
--- OUTSIDE RECORDS SUMMARY | 2025-06-01 07:32 | XMS_ITS | Clinical Summary ---
Author Organization [facility] Address [address] [place] [address] Care Team Providers Care Slip Mixer Name Role Phone Yaw Rubio MD Primary Care Provider [phone] [phone] Allergies Active Allergy Reactions Criticality Noted Date [...] complete this topic Insurance QU[place] [id number] [facility] [employer] Care Teams Slip Mixer Relationship Specialty Start Date End Date Yaw Rubio MD [address] [place] [facility] [address] [place] [id number] PCP - General Family Medicine 02/15/17
--- OUTSIDE RECORDS SUMMARY | 2025-06-01 07:32 | XMS_ITS | Encounter Summary ---
Author Organization [employer] ([place], [place], [place], [place]) Address [address] [facility] [place] [address] Care Team Providers Care Carpet Cleaner Name Role Phone Unavailable Primary Care Provider Unavailabl e Encounter Details Date Type Department Care Team (Late st Contact Info) Description 12/29/[address] [facility] [place] Family [place] [address] ProviderZahira MD [address] [place] [address] Social History Tobacco Use Types [...] EDT Height Source Stated Height Entry Format [place] Height/Length, IRANIAN (ft) 5 ft Height/Length IRANIAN 7 Inch CLINICALHEIGHT 170.18 cm Harrison Body Weight 61.16 kg Weight Source, ED Critical estimated dosing weight Weight Entry Format Kerri Weight Croatian lb 250 lb CLINICALWEIGHT 113.64 kg Body Surface Area (BSA) 2.23 m2 Body Mass Index 39.2 kg/m2 HI . Oxygen Saturation 12/29/2020 13:42 EDT Oxygen Saturation 99 % . General: Alert, no acute distress. [place] coma scale: Total score: Total score: 15. [...] rhythm, No ST changes, no ectopy, normal AK & QRS intervals, EP Interp. Results review: [...] 14.6 % LOW Lymph # 1.51 x10(3)/uL [place] % 5.3 % [place] # 0.55 K/uL Eos % 0.8 % [...] Follow up with: ; Find a Doc ([facility]) Within 2 to 3 days. Counseled: [...] her. Given clear follow-up and return precautions.. Electronically signed by Catarino Forde Conversion Welding Machine Operator Gas Cerner at 01/26/2023 1:23 PM CDT documented in this encounter Plan of Treatment Not on file documented as of this encounter Visit Diagnoses Not on filedocumented in this encounter
--- OUTSIDE RECORDS SUMMARY | 2025-06-01 07:32 | XMS_ITS | Encounter Summary ---
Author Organization [employer] ([place], [place], [place], [place]) Address [address] [place] [address] Care Team Providers Care Boat Loader Name Role Phone Unavailable Primary Care Provider Unavailabl e Encounter Details Date Type Department Care Team (Late st Contact Info) Description 12/29/2020 Transcribed Document [facility] [place] [address] ProviderZahira MD [address] [place] [address] Social History Tobacco Use Types [...] Watts MD - 12/29/2020 5:28 PM CDT [facility] [place] [address] JOSE DE JESUSJOELLENSOHAIL CHRISTINE :1990 Visit [...] 3 days Where: [place] [address] [phone] Business (1) Allergies Ultram (gallbladder problems) Immunizations [...] range between ( 0.0 and 7.0 ) [place] #: 0.55 K/uL -- Normal range between ( 0.16 and 1.00 ) Eos #: 0.08 x10(3)/uL -- Normal range between ( 0.00 and 0.80 ) [place] %: 5.3 % -- Normal range between [...] substance, such as a prescription medicine, an yvqb-qyd-juvlhxr medicine, a vitamin, a supplement, or an [...] Heroin. ??? Multivitamins that contain iron. ??? Wqit-spc-irpomne cold and cough medicines. What increases the [...] these instructions at home: Medicines ??? Take qnul-dgw-kavpjqb and prescription medicines only as told by your health care provider. ??? Before taking a new medicine, ask your health care provider whether the medicine: ? May cause side effects. ? Might react with other medicines. ??? Keep a list of all the medicines that you take, including pybb-enk-evtlbnm medicines, vitamins, supplements, and herbs. Bring this [...] your cell phone. The hotline of the [place] Association of Poison Control Centers is . [...] substance, such as a prescription medicine, an hwhj-gen-jcekpmz medicine, a vitamin, a supplement, or an [...] provider. Document Revised: 09/09/2018 Document Reviewed: 08/29/2018 [employer] Patient Education ?? 2020 [employer]. Emergency Awareness and Preventative Care STROKE is [...] Assistance with quitting is available by contacting 6-784-THKM-NOW. This is a free resource providing counseling, [...] was given the opportunity to ask questions. Patient/Cost Report Clerk Name: Patient/Cost Report Clerk Signature: Relationship to Patient: Clinician/Hospital Cost Report Clerk Signature: Please Provide a Telephone Number Where You Can Be Reached: Is it Permissible To Leave a Message? Date: documented in this encounter Plan of Treatment Not on file documented as of this encounter Visit Diagnoses Not on filedocumented in this encounter
--- OUTSIDE RECORDS SUMMARY | 2025-06-01 07:32 | XMS_ITS | Encounter Summary ---
Author Organization [employer] ([place], [place], [place], [place]) Address [address] [place] [address] Care Team Providers Care Employee Wellness/Fitness Coordinator Name Role Phone Unavailable Primary Care Provider Unavailabl e Encounter Details Date Type Department Care Team (Late st Contact Info) Description 12/29/2020 Transcribed Document [facility] [place] [facility] [place] [address] ProviderZahira MD [address] [place] [address] Social History Tobacco Use Types [...] : 2 - Emergent Tracking Group : [facility] ED KAYLYN HUNG RN - 12/29/2020 [...] 12/29/2020 13:47:35 EDT) Problems(Active) Anxiety (SNOMED CT :19527377 ) Name of Problem: Anxiety ; Recorder: KYALYN HUNG RN; Confirmation: Confirmed ; Classification: Medical ; Code: [id number] ; Contributor System: XAware ; Last Updated: 12/29/2020 13:46 EDT ; Life Cycle Date: 12/29/2020 ; Life Cycle Status: Active ; Vocabulary: SNOMED CT Depression (SNOMED CT :91073954 ) Name of Problem: Depression ; Recorder: KAYLYN HUNG RN; Confirmation: Confirmed ; Classification: Medical ; Code: [id number] ; Contributor System: KincastChart ; Last Updated: 12/29/2020 13:46 EDT ; Life Cycle Date: 12/29/2020 ; Life Cycle Status: Active ; Vocabulary: SNOMED CT Diagnoses(Active) Medication overdose Date: 12/29/2020 ; Diagnosis Type: Reason For Visit ; Confirmation: Complaint of ; Clinical Dx: Medication overdose ; Classification: Medical ; Clinical Service: Emergency medicine ; Code: PNED ; Probability: 0 ; Diagnosis Code: [id number] ED Height and Weight Height Source : Stated Height Entry Format : [place] Height, Feet : 5 ft(Converted to: 152 cm, 60 Inch) Height, Inches : 7 Inch(Converted to: 0 ft 7 Inch, 17.78 cm) Clinical Height : 170.18 cm Weight Source, ED : Critical estimated dosing weight Weight Entry Format : [place] Weight, Pounds : 250 lb Clinical Dosing Weight : 113.64 kg Body Surface Area (BSA) : 2.23 m2 Body Mass Index : 39.2 kg/m2 (HI) [place] Body Weight (IBW) : 61.16 kg KAYLYN HUNG RN - 12/29/2020 13:42 EDT documented in this encounter Plan of Treatment Not on file documented as of this encounter Visit Diagnoses Not on filedocumented in this encounter
--- OUTSIDE RECORDS SUMMARY | 2025-06-01 07:32 | XMS_ITS | Encounter Summary ---
Author Organization [employer] ([place], [place], [place], [place]) Address [address] [facility] [place] [address] Care Team Providers Care Life Insurance Sales Agent Name Role Phone Unavailable Primary Care Provider Unavailabl e Encounter Details Date Type Department Care Team (Late st Contact Info) Description 12/29/2020 Transcribed Document [facility] [place] [facility] [place] [address] ProviderZahira MD [address] [place] [address] Social History Tobacco Use Types [...] Historical ProviderMD - 12/29/2020 5:23 PM CDT documented in this encounter Plan of Treatment Not on file documented as of this encounter Visit Diagnoses Not on filedocumented in this encounter
--- NOTE | 2025-06-01 08:00 | US_ITS ---
PROCEDURE: US TRANSVAGINAL CLINICAL INDICATION: Heavy bleeding COMPARISON: No exams were available for comparison FINDINGS: Transvaginal sonographic images of the pelvis were obtained. UTERUS: 10.3cm x 5.9 cmx 6.1cm anteverted with a combined endometrial thickness of 13.9mm. The endometrium appears homogeneous. There is a fluid collection near the scar that measures 1.7 cm x 1.2 cm. There are nabothian cysts in the cervix. LEFT OVARY: 3.6 cm x2.5cmx2.4cm with a volume of 11.1ml. There is a follicle in the left ovary that measures 1.1 cm. RIGHT OVARY: 4.2cmx 2.7 cmx2.4cm with a volume of 14.4ml. Both ovaries are seen and appear normal. Doppler flow to both ovaries are seen. There is no fluid in the cul-de-sac. IMPRESSION: 1. Anteverted, enlarged uterus. The endometrium is thickened measuring 13.9 mm. 2. There is a fluid collection near the scar that measures 1.7 cm in size. I would recommend against endometrial ablation given that this cyst wall is very close to the bladder. The length of the endometrial cavity is just 4 cm. See images 4 and 5. 3. Both ovaries are seen and appear normal. They both have small follicles. 4. No fluid in the cul-de-sac. Dictated by: Cedric Abebe MD 06/01/2025 15:46 Cedric Abebe MD in [place] 06/01/2025 15:46
== END 2025-06-01 23:59 | disposition home or self-care (01) ==
LOC: RAD 07:31
PROVIDERS: PCP Physician Assistant; Visit Provider Obstetrics & Gynecology
DX: N85.2 Hypertrophy of uterus (principal); N83.02 Follicular cyst of left ovary; N83.01 Follicular cyst of right ovary; N92.0 Excessive and frequent menstruation with regular cycle; Z98.891 History of uterine scar from previous surgery
CPT/HCPCS: 76830

== ENCOUNTER 2025-06-13 10:48 | Outpatient (CLI) | payer BC, SELFPAY ==
[2025-06-13] MEDS: IRON SUCROSE COMPLEX 300 MG in 0.9 % SODIUM CHLORIDE 250 ML 220 MG IV (11:00)
[2025-06-13 11:10] VITALS: BP 128/67; PULSE 71; RESP 18; TEMP 36.8; O2SAT 98
[2025-06-13] MEDS: SODIUM CHLORIDE 0.9% 10ML FLUSH SYRINGE 10 ML IV (11:10)
--- OUTSIDE RECORDS SUMMARY | 2025-06-13 11:11 | XMS_ITS | Encounter Summary ---
Author Organization [employer] ([place], [place], [place], [place]) Address [address] [place] [address] Care Team Providers Care Orange Grower Name Role Phone Unavailable Primary Care Provider Unavailabl e Encounter Details Date Type Department Care Team (Late st Contact Info) Description 12/29/2020 Transcribed Document [facility] [place] [facility] [place] [address] ProviderZahira MD [address] [place] [address] Social History Tobacco Use Types [...] 5:23 PM CDT Electronically signed by Maurisio [facility] Conversion Straight Slicing Machine Operator Toi at 01/26/2023 1:24 PM CDT documented in this encounter Plan of Treatment Not on file documented as of this encounter Visit Diagnoses Not on filedocumented in this encounter
--- OUTSIDE RECORDS SUMMARY | 2025-06-13 11:11 | XMS_ITS | Clinical Summary ---
Author Organization [facility] Address [address] [place] [address] Care Team Providers Care Instruments Sales Representative Name Role Phone Yaw Rubio MD Primary Care Provider [phone] Allergies Active Allergy Reactions Criticality Noted Date [...] complete this topic [place] [id number] [facility] Care Teams Instruments Sales Representative Relationship Specialty Start Date End Date Yaw Rubio MD [address] [facility] [address] [place] [id number] PCP - General Family Medicine 02/15/17
--- OUTSIDE RECORDS SUMMARY | 2025-06-13 11:11 | XMS_ITS | Encounter Summary ---
Author Organization [employer] ([place], [place], [place], [place]) Address [address] [place] [address] Care Team Providers Care Office Employee Name Role Phone Unavailable Primary Care Provider Unavailabl e Encounter Details Date Type Department Care Team (Late st Contact Info) Description 12/29/2020 Transcribed Document [facility] [place] [address] [place] [address] ProviderZahira MD [address] [place] [address] Social History Tobacco Use Types [...]
--- OUTSIDE RECORDS SUMMARY | 2025-06-13 11:11 | XMS_ITS | Encounter Summary ---
Author Organization [employer] ([place], [place], [place], [place]) Address [address] [facility] [address] Care Team Providers Care Control Equipment Electrician Name Role Phone Unavailable Primary Care Provider Unavailabl e Encounter Details Date Type Department Care Team (Late st Contact Info) Description 12/29/2020 Transcribed Document [facility] [place] [facility] [place] [address] ProviderZahira MD [address] [place] [address] Social History Tobacco Use Types [...] EDT Height Source Stated Height Entry Format [place] Height/Length, BOLIVIAN (ft) 5 ft Height/Length BOLIVIAN 7 Inch CLINICALHEIGHT 170.18 cm [place] Body Weight 61.16 kg Weight Source, ED Critical estimated dosing weight Weight Entry Format Kerri Weight Mongolian lb 250 lb CLINICALWEIGHT 113.64 kg Body Surface Area (BSA) 2.23 m2 Body Mass Index 39.2 kg/m2 [place] . Oxygen Saturation 12/29/2020 13:42 EDT Oxygen Saturation 99 % . General: Alert, no acute distress. [place] coma scale: Total score: Total score: 15. [...] rhythm, No ST changes, no ectopy, normal VT & QRS intervals, EP Interp. Results review: [...] 14.6 % LOW Lymph # 1.51 x10(3)/uL [place] % 5.3 % [place] # 0.55 K/uL Eos % 0.8 % [...] Follow up with: ; Find a Doc ([facility]) Within 2 to 3 days. Counseled: Patient, [...] precautions.. Electronically signed by Catarino Forde Conversion Product Sales Representative Cerner at 01/26/2023 1:23 PM CDT documented in this encounter Plan of Treatment Not on file documented as of this encounter Visit Diagnoses Not on filedocumented in this encounter
--- OUTSIDE RECORDS SUMMARY | 2025-06-13 11:11 | XMS_ITS | Encounter Summary ---
Author Organization [employer] ([place], [place], [place], [place]) Address [address] [place] [address] Care Team Providers Care Management Development Specialist Name Role Phone Unavailable Primary Care Provider Unavailabl e Encounter Details Date Type Department Care Team (Late st Contact Info) Description 12/29/2020 Transcribed Document [facility] [place] [address] [place] [address] ProviderZahira MD [address] [place], [place] [id number] Social History Tobacco Use Types Packs/Day Years [...] Historical ProviderMD - 12/29/2020 1:37 PM CDT [place] Suicide Severity Rating Scale (C-SSRS) Entered On: 12/29/2020 14:29 EDT Performed On: 12/29/2020 14:27 EDT by Hai Yepez RN [place] Suicide Severity Rating Scale (C-SSRS) CSSRS Past Month Wish to be : No CSSRS Past Month Suicidal Thoughts : No CSSRS Lifetime Suicide Behavior : No Suicide Severity Rating Score : 0 Suicide Severity Rating : No Additional Care Required at this time Hai Yepez RN - 12/29/2020 14:27 EDT Electronically signed by Maurisio [facility] Conversion Civil Transportation Engineer Cerner at 01/26/2023 1:13 PM CDT documented in this encounter Plan of Treatment Not on file documented as of this encounter Visit Diagnoses Not on filedocumented in this encounter
--- OUTSIDE RECORDS SUMMARY | 2025-06-13 11:11 | XMS_ITS | Clinical Summary ---
Author Organization [employer] ([place], [place], [place], [place]) Address [address] [place] [address] Care Team Providers Care Manufacturing Industrial Engineer Name Role Phone Unavailable Primary Care Provider [...]
--- OUTSIDE RECORDS SUMMARY | 2025-06-13 11:12 | XMS_ITS | Encounter Summary ---
Author Organization [employer] ([place], [place], [place], [place]) Address [address] [place] [address] Care Team Providers Care Caterpillar Mechanic Name Role Phone Unavailable Primary Care Provider Unavailabl e Encounter Details Date Type Department Care Team (Late st Contact Info) Description 12/29/2020 Transcribed Document [facility] [place] [facility] [place] [address] ProviderZahira MD [address] [place] [address] Social History Tobacco Use Types [...] Watts MD - 12/29/2020 5:23 PM CDT [facility] [place] [address] JOSE DE JESUSJOELLENSOHAIL CHRISTINE :1990 Visit [...] 3 days Where: [place] [address]- [phone] Business (1) Allergies Ultram (gallbladder problems) Immunizations [...] range between ( 0.0 and 7.0 ) [place] #: 0.55 K/uL -- Normal range between ( 0.16 and 1.00 ) [place]os #: 0.08 x10(3)/uL -- Normal range between ( 0.00 and 0.80 ) [place] %: 5.3 % -- Normal range between [...] substance, such as a prescription medicine, an qmbe-bus-qttdqgr medicine, a vitamin, a supplement, or an [...] Heroin. ??? Multivitamins that contain iron. ??? Ulvm-niw-stijywz cold and cough medicines. What increases the [...] these instructions at home: Medicines ??? Take fhqw-zcg-qxncjxk and prescription medicines only as told by your health care provider. ??? Before taking a new medicine, ask your health care provider whether the medicine: ? May cause side effects. ? Might react with other medicines. ??? Keep a list of all the medicines that you take, including ilbf-ofv-ecuiblr medicines, vitamins, supplements, and herbs. Bring this [...] your cell phone. The hotline of the [place] [employer] of Poison Control Centers is . [...] substance, such as a prescription medicine, an qbvd-vso-leleedd medicine, a vitamin, a supplement, or an [...] provider. Document Revised: 09/09/2018 Document Reviewed: 08/29/2018 [employer] Patient Education ?? 2020 [employer]. Emergency Awareness and Preventative Care STROKE is [...] Assistance with quitting is available by contacting 9-942-MNMD-NOW. This is a free resource providing counseling, [...] was given the opportunity to ask questions. Patient/Permit Review Assistant Name: Patient/Permit Review Assistant Signature: Relationship to Patient: Clinician/Hospital Permit Review Assistant Signature: Please Provide a Telephone Number Where You Can Be Reached: Is it Permissible To Leave a Message? Date: documented in this encounter Plan of Treatment Not on file documented as of this encounter Visit Diagnoses Not on filedocumented in this encounter
--- OUTSIDE RECORDS SUMMARY | 2025-06-13 11:12 | XMS_ITS | Referral Summary ---
Author Organization [employer] ([place], [place], [place], [place]) Address [address] [place] [address] Care Team Providers Care Gate Keeper Name Role Phone Unavailable Primary Care Provider [...]
--- OUTSIDE RECORDS SUMMARY | 2025-06-13 11:12 | XMS_ITS | Encounter Summary ---
Author Organization [employer] ([place], [place], [place], [place]) Address [address] [place] [address] Care Team Providers Care Relocation Specialist Name Role Phone Unavailable Primary Care Provider Unavailabl e Encounter Details Date Type Department Care Team (Late st Contact Info) Description 12/29/2020 Transcribed Document [facility] [place] [facility] [place] [address] ProviderZahira MD [address] [place] [address] Social History Tobacco Use Types [...]
--- OUTSIDE RECORDS SUMMARY | 2025-06-13 11:12 | XMS_ITS | Encounter Summary ---
Author Organization [employer] ([place], [place], [place], [place]) Address [address] [place] [address] Care Team Providers Care Cattle Shipper Name Role Phone Unavailable Primary Care Provider Unavailabl e Encounter Details Date Type Department Care Team (Late st Contact Info) Description 12/29/2020 Transcribed Document [facility] [place] [facility] [place] [address] ProviderZahira MD [address] [place] [address] Social History Tobacco Use Types [...] : 2 - Emergent Tracking Group : [facility] ED KAYLYN HUNG RN - 12/29/2020 [...] 12/29/2020 13:47:35 EDT) Problems(Active) Anxiety (SNOMED CT :14902314 ) Name of Problem: Anxiety ; Recorder: KAYLYN HUNG RN; Confirmation: Confirmed ; Classification: Medical ; Code: [id number] ; Contributor System: Lumus ; Last Updated: 12/29/2020 13:46 EDT ; Life Cycle Date: 12/29/2020 ; Life Cycle Status: Active ; Vocabulary: SNOMED CT Depression (SNOMED CT :90597581 ) Name of Problem: Depression ; Recorder: KAYLYN HUNG RN; Confirmation: Confirmed ; Classification: Medical ; Code: [id number] ; Contributor System: SIRION BIOTECHChart ; Last Updated: 12/29/2020 13:46 EDT ; Life Cycle Date: 12/29/2020 ; Life Cycle Status: Active ; Vocabulary: SNOMED CT Diagnoses(Active) Medication overdose Date: 12/29/2020 ; Diagnosis Type: Reason For Visit ; Confirmation: Complaint of ; Clinical Dx: Medication overdose ; Classification: Medical ; Clinical Service: Emergency medicine ; Code: PNED ; Probability: 0 ; Diagnosis Code: [id number] ED Height and Weight Height Source : Stated Height Entry Format : [place] Height, Feet : 5 ft(Converted to: 152 cm, 60 Inch) Height, Inches : 7 Inch(Converted to: 0 ft 7 Inch, 17.78 cm) Clinical Height : 170.18 cm Weight Source, ED : Critical estimated dosing weight Weight Entry Format : [place] Weight, Pounds : 250 lb Clinical Dosing Weight : 113.64 kg Body Surface Area (BSA) : 2.23 m2 Body Mass Index : 39.2 kg/m2 (HI) [place] Body Weight (IBW) : 61.16 kg KAYLYN HUNG RN - 12/29/2020 13:42 EDT documented in this encounter Plan of Treatment Not on file documented as of this encounter Visit Diagnoses Not on filedocumented in this encounter
--- OUTSIDE RECORDS SUMMARY | 2025-06-13 11:12 | XMS_ITS | Encounter Summary ---
Author Organization [employer] ([place], [place], [place], [place]) Address [address] [place] [address] Care Team Providers Care Knockout Worker Name Role Phone Unavailable Primary Care Provider Unavailabl e Encounter Details Date Type Department Care Team (Late st Contact Info) Description 12/29/2020 Transcribed Document [facility] [place] [facility] [place] [address] ProviderZahira MD [address] [place] [address] Social History Tobacco Use Types [...] Watts MD - 12/29/2020 5:[address] [facility] [place] [address] JOSE DE JESUSJOELLENSOHAIL CHRISTINE :1990 Visit [...] 3 days Where: [place] [address]- [phone] Business (1) Allergies Ultram (gallbladder problems) Immunizations [...] range between ( 0.0 and 7.0 ) [place] #: 0.55 K/uL -- Normal range between ( 0.16 and 1.00 ) Eos #: 0.08 x10(3)/uL -- Normal range between ( 0.00 and 0.80 ) [place] %: 5.3 % -- Normal range between [...] substance, such as a prescription medicine, an oinv-mfs-rvywkvw medicine, a vitamin, a supplement, or an [...] Heroin. ??? Multivitamins that contain iron. ??? Qbhr-mic-jmoxrah cold and cough medicines. What increases the [...] these instructions at home: Medicines ??? Take koxw-pvq-cxdnngp and prescription medicines only as told by your health care provider. ??? Before taking a new medicine, ask your health care provider whether the medicine: ? May cause side effects. ? Might react with other medicines. ??? Keep a list of all the medicines that you take, including wzoa-ylt-cmhfled medicines, vitamins, supplements, and herbs. Bring this [...] your cell phone. The hotline of the [place] Association of Poison Control Centers is . [...] substance, such as a prescription medicine, an xuip-gkh-bpqqcnx medicine, a vitamin, a supplement, or an [...] provider. Document Revised: 09/09/2018 Document Reviewed: 08/29/2018 [employer] Patient Education ?? 2020 [employer]. Emergency Awareness and Preventative Care STROKE is [...] Assistance with quitting is available by contacting 2-419-WOQC-NOW. This is a free resource providing counseling, [...] was given the opportunity to ask questions. Patient/Oil House Attendant Name: Patient/Oil House Attendant Signature: Relationship to Patient: Clinician/Hospital Oil House Attendant Signature: Please Provide a Telephone Number Where You Can Be Reached: Is it Permissible To Leave a Message? Date: documented in this encounter Plan of Treatment Not on file documented as of this encounter Visit Diagnoses Not on filedocumented in this encounter
--- OUTSIDE RECORDS SUMMARY | 2025-06-13 11:12 | XMS_ITS | Encounter Summary ---
Author Organization [employer] ([place], [place], [place], [place]) Address [address] [place] [address] Care Team Providers Care Flake Drier Name Role Phone Unavailable Primary Care Provider Unavailabl e Encounter Details Date Type Department Care Team (Late st Contact Info) Description 12/29/2020 Transcribed Document [facility] [place] [facility] [place] [address] ProviderZahira MD [address] [place] [address] Social History Tobacco Use Types [...] Communication Barrier : None Primary Language : Nicaraguan Any Spiritual/Cultural Needs or Requests : No [...]
[2025-06-13 11:45] VITALS: BP 131/69; PULSE 70
[2025-06-13 12:10] VITALS: BP 135/64; PULSE 74
== END 2025-06-13 12:15 | disposition home or self-care (01) ==
LOC: INF 10:49
PROVIDERS: PCP Physician Assistant; Visit Provider Physician Assistant
DX: Z00.00 Encounter for general adult medical examination without abnormal findings (principal); N92.0 Excessive and frequent menstruation with regular cycle; Z12.4 Encounter for screening for malignant neoplasm of cervix
CPT/HCPCS: 96365; J1756; J7050

== ENCOUNTER 2025-06-28 10:49 | Outpatient (CLI) | payer BC, SELFPAY ==
--- OUTSIDE RECORDS SUMMARY | 2025-06-28 10:53 | XMS_ITS | Encounter Summary ---
Author Organization [employer] ([place], [place], [place], [place]) Address [address] [place] [place] [address] Care Team Providers Care Truck Shop Supervisor Name Role Phone Unavailable Primary Care Provider Unavailabl e Encounter Details Date Type Department Care Team (Late st Contact Info) Description 12/29/2020 Transcribed Document [facility] [place] [address] [place] [address] ProviderZahira MD [address] [place], [place] [id number] Social History Tobacco Use Types Packs/Day Years [...] Historical ProviderMD - 12/29/2020 1:37 PM CDT [place] Suicide Severity Rating Scale (C-SSRS) Entered On: 12/29/2020 14:29 EDT Performed On: 12/29/2020 14:27 EDT by Hai Yepez RN [place] Suicide Severity Rating Scale (C-SSRS) CSSRS Past Month Wish to be : No CSSRS Past Month Suicidal Thoughts : No CSSRS Lifetime Suicide Behavior : No Suicide Severity Rating Score : 0 Suicide Severity Rating : No Additional Care Required at this time Hai Yepez RN - 12/29/2020 14:27 EDT Electronically signed by Maurisio [facility] Conversion Cannon Fire Direction Specialist Cerner at 01/26/2023 1:13 PM CDT documented in this encounter Plan of Treatment Not on file documented as of this encounter Visit Diagnoses Not on filedocumented in this encounter
--- OUTSIDE RECORDS SUMMARY | 2025-06-28 10:53 | XMS_ITS | Encounter Summary ---
Author Organization [employer] ([place], [place], [place], [place]) Address [address] [place] [address] Care Team Providers Care Toys Inspector Name Role Phone Unavailable Primary Care Provider Unavailabl e Encounter Details Date Type Department Care Team (Late st Contact Info) Description 12/29/2020 Transcribed Document [facility] [place] Family Medicine [facility] [place] [address] ProviderZahira MD [address] [place] [address] Social History Tobacco Use Types [...] : Yes Nursing Documentation Completed : Yes aHi Yepez RN - 12/29/2020 17:37 EDT ED Discharge Discharge To : Home without planned follow-up Mode Of Departure : Private vehicle Accompanied By : Unaccompanied Discharge Instructions Reviewed With, Opportunity For Questions Given : Patient Prescriptions Given to Patient : No Hai Yepez RN - 12/29/2020 17:37 EDT Electronically signed by Catarino Forde Conversion Metal Products Fabricator Assembler Cerner at 01/26/2023 1:35 PM CDT documented in this encounter Plan of Treatment Not on file documented as of this encounter Visit Diagnoses Not on filedocumented in this encounter
--- OUTSIDE RECORDS SUMMARY | 2025-06-28 10:53 | XMS_ITS | Encounter Summary ---
Author Organization [employer] ([place], [place], [place], [place]) Address [address] [place] [address] Care Team Providers Care Wastewater Supervisor Name Role Phone Unavailable Primary Care Provider Unavailabl e Encounter Details Date Type Department Care Team (Late st Contact Info) Description 12/29/2020 Transcribed Document [facility] [place] Family Medicine [address] [place] [address] ProviderZahira MD [address] [place] [address] Social History Tobacco Use Types [...]
--- OUTSIDE RECORDS SUMMARY | 2025-06-28 10:53 | XMS_ITS | Encounter Summary ---
Author Organization [employer] ([place], [place], [place], [place]) Address [address] [place] [address] Care Team Providers Care Lineman Apprentice Name Role Phone Unavailable Primary Care Provider Unavailabl e Encounter Details Date Type Department Care Team (Late st Contact Info) Description 12/29/2020 Transcribed Document [facility] [place] [facility] [place] [address] ProviderZahira MD [address] [place] [address] Social History Tobacco Use Types [...] Communication Barrier : None Primary Language : Vietnamese Any Spiritual/Cultural Needs or Requests : No [...] Hai Simpson RN - 12/29/2020 14:27 EDT Electronically signed by Catarino Forde Conversion Biblical Languages Professor Cerner at 01/26/2023 1:31 PM CDT documented in this encounter Plan of Treatment Not on file documented as of this encounter Visit Diagnoses Not on filedocumented in this encounter
--- OUTSIDE RECORDS SUMMARY | 2025-06-28 10:53 | XMS_ITS | Encounter Summary ---
Author Organization [employer] ([place], [place], [place], [place]) Address [address] [place] [address] Care Team Providers Care Consumer Experience Consultant Name Role Phone Unavailable Primary Care Provider Unavailabl e Encounter Details Date Type Department Care Team (Late st Contact Info) Description 12/29/[address] [facility] [place] Family Medicine [facility] [place] [address] ProviderZahira MD [address] [place] [address] Social History Tobacco Use Types [...] EDT Height Source Stated Height Entry Format [place] Height/Length, WOLOF (ft) 5 ft Height/Length WOLOF 7 Inch CLINICALHEIGHT 170.18 cm Nelson Body Weight 61.16 kg Weight Source, ED Critical estimated dosing weight Weight Entry Format Kerri Weight Azeri lb 250 lb CLINICALWEIGHT 113.64 kg Body Surface Area (BSA) 2.23 m2 Body Mass Index 39.2 kg/m2 HI . Oxygen Saturation 12/29/2020 13:42 EDT Oxygen Saturation 99 % . General: Alert, no acute distress. Leatha coma scale: Total score: Total score: 15. [...] rhythm, No ST changes, no ectopy, normal UT & QRS intervals, EP Interp. Results review: [...] 14.6 % LOW Lymph # 1.51 x10(3)/uL [place] % 5.3 % [place] # 0.55 K/uL Eos % 0.8 % [...] Follow up with: ; Find a Doc ([facility]) Within 2 to 3 days. Counseled: Patient, [...]
--- OUTSIDE RECORDS SUMMARY | 2025-06-28 10:53 | XMS_ITS | Clinical Summary ---
Author Organization [facility] Address [address] [place] [address] Care Team Providers Care Furnace Worker Name Role Phone Yaw Rubio MD Primary Care Provider [phone] Allergies Active Allergy Reactions Criticality Noted Date [...] ANNUAL PHYSICAL 02/17/2017 HEPATITIS C SCREENING 02/17/2017 INFLUENZA VACCINE 05/11/2025 Pneumococcal Vaccine 0-49 Aged Out No longer eligible based on patient's age to complete this topic Insurance SATYA BROOKS [id number] [facility] Care Teams Furnace Worker Relationship Specialty Start Date End Date Yaw Rubio MD [address] [facility] [address] [place] [address] PCP - General Family Medicine 02/15/17
--- OUTSIDE RECORDS SUMMARY | 2025-06-28 10:53 | XMS_ITS | Encounter Summary ---
Author Organization [employer] ([place], [place], [place], [place]) Address [address] [facility] [place] [address] Care Team Providers Care Health And Wellness Coach Name Role Phone Unavailable Primary Care Provider Unavailabl e Encounter Details Date Type Department Care Team (Late st Contact Info) Description 12/29/2020 Transcribed Document [facility] [place] Family Medicine [facility] [place] [address] ProviderZahira MD [address] [place] [address] Social History Tobacco Use Types [...] 5:23 PM CDT Electronically signed by Maurisio [facility] Conversion Diaphragm Builder Toi at 01/26/2023 1:24 PM CDT documented in this encounter Plan of Treatment Not on file documented as of this encounter Visit Diagnoses Not on filedocumented in this encounter
--- OUTSIDE RECORDS SUMMARY | 2025-06-28 10:53 | XMS_ITS | Clinical Summary ---
Author Organization [employer] ([place], [place], [place], [place]) Address [address] [place] [address] Care Team Providers Care Aerobics Instructor Name Role Phone Unavailable Primary Care Provider [...]
--- OUTSIDE RECORDS SUMMARY | 2025-06-28 10:53 | XMS_ITS | Encounter Summary ---
Author Organization [employer] ([place], [place], [place], [place]) Address [address] [place] [address] Care Team Providers Care Classified Advertising Supervisor Name Role Phone Unavailable Primary Care Provider Unavailabl e Encounter Details Date Type Department Care Team (Late st Contact Info) Description 12/29/2020 Transcribed Document [facility] [place] [facility] [place] [address] ProviderZahira MD [address] [place] [address] Social History Tobacco Use Types [...] Watts MD - 12/29/2020 5:23 PM CDT [facility] [place] [address] JOSE DE JESUSJOELLENSOHAIL CHRISTINE :1990 Visit [...] 3 days Where: [place] [phone]- [phone] Business (1) Allergies Ultram (gallbladder problems) Immunizations [...] range between ( 0.0 and 7.0 ) Alcorn #: 0.55 K/uL -- Normal range between ( 0.16 and 1.00 ) Eos #: 0.08 x10(3)/uL -- Normal range between ( 0.00 and 0.80 ) Alcorn %: 5.3 % -- Normal range between [...] substance, such as a prescription medicine, an smtq-kbl-gkrezer medicine, a vitamin, a supplement, or an [...] Heroin. ??? Multivitamins that contain iron. ??? Reiy-gvy-hmnegep cold and cough medicines. What increases the [...] these instructions at home: Medicines ??? Take sxyg-qcs-tmoamsh and prescription medicines only as told by your health care provider. ??? Before taking a new medicine, ask your health care provider whether the medicine: ? May cause side effects. ? Might react with other medicines. ??? Keep a list of all the medicines that you take, including qkcf-yal-ttrzepi medicines, vitamins, supplements, and herbs. Bring this [...] your cell phone. The hotline of the [place] [employer] of Poison Control Centers is [...] substance, such as a prescription medicine, an obzo-ple-mfoaxqr medicine, a vitamin, a supplement, or an [...] provider. Document Revised: 09/09/2018 Document Reviewed: 08/29/2018 [place] ([employer]) Patient Education ?? 2020 [employer]. Emergency Awareness and Preventative Care STROKE is [...] Assistance with quitting is available by contacting 8-319-MQFU-NOW. This is a free resource providing counseling, [...] was given the opportunity to ask questions. Patient/Bolt Maker Name: Patient/Bolt Maker Signature: Relationship to Patient: Clinician/Hospital Bolt Maker Signature: Please Provide a Telephone Number Where You Can Be Reached: Is it Permissible To Leave a Message? Date: documented in this encounter Plan of Treatment Not on file documented as of this encounter Visit Diagnoses Not on filedocumented in this encounter
--- OUTSIDE RECORDS SUMMARY | 2025-06-28 10:53 | XMS_ITS | Referral Summary ---
Author Organization [employer] ([place], [place], [place], [place]) Address [address] [place] [address] Care Team Providers Care Item Processing Clerk Name Role Phone Unavailable Primary Care Provider [...]
--- OUTSIDE RECORDS SUMMARY | 2025-06-28 10:53 | XMS_ITS | Patient Health Record ---
Author Organization [facility] Address [address] [facility] [address] SATYA Alvarez [id number] Care Team Providers Care Manager Fixed Income Name Role Phone Williams Lang Primary Care Provider [phone] Nya Rubio Unavailable [phone] Allergies Allergen (clinical drug ingredient) Drug/Non Drug Allergy documented on EMR Reaction Allergy Type Onset Date Status tramadol traMADol HCl attacks pt gall bladder Drug Allergy Active Medications Medication SIG (Take, Route, Frequency, Duration) Notes Start Date End Date Status risperiDONE 0.5 MG 1 tab(s) orally qhs; Duration: 90 days 07/02/2021 Not-Taking Sertraline HCl 50 MG 1 tab(s) orally once a day; Duration: 30 day(s) 07/16/2021 Not-Taking BD ULTRA-FINE PEN NEEDLE OVIDIO 32G 4MM - ONCE DAILY *Please review for potential replacement for e-prescription and drug interaction check* 03/01/2020 Not-Taking Saxenda 18 MG/3ML 1.8mg subcutaneously once a day; Duration: 30 day(s) 02/29/2020 Not-Taking Trintellix 10 MG 1 tab(s) orally once a day; Duration: 90 days 06/11/2021 Not-Taking Cephalexin 500 MG 1 tab(s) orally every 12 hours; Duration: 10 day(s) 03/05/2023 Active Medrol 4 MG as directed orally 03/05/2023 Active Immunizations Vaccine Route Administration Date Status Comme nts Tetanus Tdap-Adacel (over 7yrs) IM Intramuscular 08/14/2016 Administered tuberculin (ppd) ID Intradermal 11/23/2008 Administered Problems Problem Type SNOMED Code ICD Code Onset Dates Problem Status W/U Status Risk Notes Problem Bipolar disorder (14308722) Bipolar disorder NOS (296.7) Active confirmed Problem Solitary nodule of lung (013025500) Lung nodule (R91.1) Active confirmed Problem Anxiety (01951404) Anxiety (F41.9) Active confirmed Problem Mixed anxiety and depressive disorder (045719706) Depression with anxiety (F41.8) Active confirmed Problem Mood disorder (65150127) Mood disorder (F39) Active confirmed Problem Ultrasonography of breast abnormal (90614187582241653) Abnormal ultrasound of breast (R92.8) Active confirmed Problem Obese class I (finding) (467037514634963) Obesity (BMI 30.0-34.9) (E66.9) Active confirmed Problem Obesity (760222188) Obesity (BMI 35.0-39.9 without comorbidity) (E66.9) Active confirmed Plan Of Treatment No Information Insurance Providers Payer Name Payer Address Payer Phone Subscriber Number Group Number Insured Name Patient Relationship to Insured Coverage Start Date Coverage End Date [employer]ULI ROSAS [employer] [address] [place] [address] [id number] CHRISTINE KAN Self - patient is the insured Medications Administered Medication Instructions Date of Administration Dosage Notes Vistaril 75 mg 03/30/2007 Medical (General) History Surgical History Surgery Date(Month/Year) none C section 9-9-10 Breast reduction -2016 Tubal Ligation Hospitalization History Reason Date(Month/Year) [facility], Right Ear Ache February 26, 2008 [facility] C section 06/19/20 10
--- OUTSIDE RECORDS SUMMARY | 2025-06-28 10:53 | XMS_ITS | Encounter Summary ---
Author Organization [employer] ([place], [place], [place], [place]) Address [address] [place] [address] Care Team Providers Care Addiction Social Worker Name Role Phone Unavailable Primary Care Provider Unavailabl e Encounter Details Date Type Department Care Team (Late st Contact Info) Description 12/29/2020 Transcribed Document [facility] [place] Family Medicine Counts include [facility] beds at the [facility] [place] [address] ProviderZahira MD [address] [place] [address] Social History Tobacco Use Types [...] Watts MD - 12/29/2020 5:28 PM CDT [facility] [place] [address] JOSE DE JESUSJOELLENSOHAIL CHRISTINE :1990 Visit [...] 3 days Where: [place] [address] [phone] Business (1) Allergies Ultram (gallbladder problems) Immunizations [...] range between ( 0.0 and 7.0 ) Dupage #: 0.55 K/uL -- Normal range between ( 0.16 and 1.00 ) Eos #: 0.08 x10(3)/uL -- Normal range between ( 0.00 and 0.80 ) Dup[place] %: 5.3 % -- Normal range between [...] substance, such as a prescription medicine, an evvv-lil-ehhmldk medicine, a vitamin, a supplement, or an [...] Heroin. ??? Multivitamins that contain iron. ??? Ozmr-xjb-lpxojiz cold and cough medicines. What increases the [...] these instructions at home: Medicines ??? Take mzke-zsd-ggxwadl and prescription medicines only as told by your health care provider. ??? Before taking a new medicine, ask your health care provider whether the medicine: ? May cause side effects. ? Might react with other medicines. ??? Keep a list of all the medicines that you take, including hvbq-uoq-tuwwnly medicines, vitamins, supplements, and herbs. Bring this [...] your cell phone. The hotline of the [place] [employer] of Poison Control Centers is . [...] substance, such as a prescription medicine, an xhhu-yye-ndvjkfq medicine, a vitamin, a supplement, or an [...] provider. Document Revised: 09/09/2018 Document Reviewed: 08/29/2018 [facility] Patient Education ?? 2020 [employer]. Emergency Awareness and Preventative Care [place] is [...] Assistance with quitting is available by contacting 4-469-JNZD-NOW. This is a free resource providing counseling, [...] was given the opportunity to ask questions. Patient/Appraiser Art Name: Patient/Appraiser Art Signature: Relationship to Patient: Clinician/Hospital Appraiser Art Signature: Please Provide a Telephone Number Where You Can Be Reached: Is it Permissible To Leave a Message? Date: documented in this encounter Plan of Treatment Not on file documented as of this encounter Visit Diagnoses Not on filedocumented in this encounter
--- OUTSIDE RECORDS SUMMARY | 2025-06-28 10:53 | XMS_ITS | Encounter Summary ---
Author Organization [employer] ([place], [place], [place], [place]) Address [address] [place] [address] Care Team Providers Care Pan Reclaim Processor Name Role Phone Unavailable Primary Care Provider Unavailabl e Encounter Details Date Type Department Care Team (Late st Contact Info) Description 12/29/2020 Transcribed Document [facility] [place] [facility] [place] [address] ProviderZahira MD [address] [place] [address] Social History Tobacco Use Types [...] : 2 - Emergent Tracking Group : [facility] ED KAYLYN HUNG RN - 12/29/2020 13:42 [...] 12/29/2020 13:47:35 EDT) Problems(Active) Anxiety (SNOMED CT :51999627 ) Name of Problem: Anxiety ; Recorder: KAYLYN HUNG RN; Confirmation: Confirmed ; Classification: Medical ; Code: 50560171 ; Contributor System: Smarterphone ; Last Updated: 12/29/2020 13:46 EDT ; Life Cycle Date: 12/29/2020 ; Life Cycle Status: Active ; Vocabulary: SNOMED CT Depression (SNOMED CT :68948048 ) Name of Problem: Depression ; Recorder: KAYLYN HUNG RN; Confirmation: Confirmed ; Classification: Medical ; Code: 21077271 ; Contributor System: MetrolightChart ; Last Updated: 12/29/2020 13:46 EDT ; Life Cycle Date: 12/29/2020 ; Life Cycle Status: Active ; Vocabulary: SNOMED CT Diagnoses(Active) Medication overdose Date: 12/29/2020 ; Diagnosis Type: Reason For Visit ; Confirmation: Complaint of ; Clinical Dx: Medication overdose ; Classification: Medical ; Clinical Service: Emergency medicine ; Code: PNED ; Probability: 0 ; Diagnosis Code: [id number] ED Height and Weight Height Source : Stated Height Entry Format : [place] Height, Feet : 5 ft(Converted to: 152 cm, 60 Inch) Height, Inches : 7 Inch(Converted to: 0 ft 7 Inch, 17.78 cm) Clinical Height : 170.18 cm Weight Source, ED : Critical estimated dosing weight Weight Entry Format : [place] Weight, Pounds : 250 lb Clinical Dosing Weight : 113.64 kg Body Surface Area (BSA) : 2.23 m2 Body Mass Index : 39.2 kg/m2 (HI) [place] Body Weight (IBW) : 61.16 kg KAYLYN HUNG RN - 12/29/2020 13:42 EDT documented in this encounter Plan of Treatment Not on file documented as of this encounter Visit Diagnoses Not on filedocumented in this encounter
[2025-06-28 11:13] VITALS: BP 150/89; PULSE 69; RESP 18; O2SAT 99
[2025-06-28] MEDS: IRON SUCROSE COMPLEX 400 MG in 0.9 % SODIUM CHLORIDE 250 ML 108 MG IV (11:13)
[2025-06-28 13:35] VITALS: BP 158/92; PULSE 74; RESP 18; O2SAT 99
== END 2025-06-28 23:59 | disposition home or self-care (01) ==
LOC: INF 10:50
PROVIDERS: PCP Physician Assistant; Visit Provider Physician Assistant
DX: Z01.89 Encounter for other specified special examinations (principal)
CPT/HCPCS: 96365; 96366; J1756; J7050

== ENCOUNTER 2025-08-13 08:59 | Outpatient (CLI) | payer BC, SELFPAY ==
--- OUTSIDE RECORDS SUMMARY | 2025-08-13 09:04 | XMS_ITS | Continuity of Care Document ---
Author Organization [employer] [facility] Address [address] [place] [address] Assessment No assessment recorded. Plan of Treatment Reminders Order Date Submit Date Provider Last Modified By Organization Details Last Modified Time Details Appointments FOLLOW UP 30 2025 08:00A Abdelrahman Delcid PA-C Not available Not available Not available Lab vitamin D, 25-hydro xy, total, serum 2024 025 [place] [facility] [place] [address] [place] [address], [id number], 08/07/2025 12:08:24 CBC w/ auto diff 2024 025 [place] [facility] [place], [address] [place], [address], 08/07/2025 12:08:24 iron + TIBC + ferritin , serum 2024 025 [place] [facility] [place], [address] [place] [address], [id number], 08/07/2025 12:08:23 Referral None recorded . Procedures None recorded . Surgeries None recorded . Imaging None recorded . Medication Orders None recorded . Patient TargetsNo targets recorded. Patient Instructions Encounter Date Encounter Id Patient Instructions Last Modified By Organization Details Last Modified Time 08/06/2025 [id number] iron deficiency anemia: care instructions [id number] Not available 08/06/2025 09:25:57 Reason for Referral None Reported. Results Created Date Observation Date Name Description Value Unit Range Abnormal Flag Note LastModifiedBy Organization Detail LastModifiedTime 08/06/2008/07/2025 FE+TI BC+FE R iron bind.cap.(TI BC) 334 ug/dL 250-45 0 normal Not Available [facility] ([facility]) [address] [place], [address], 08/07/2025 12:08:23 08/06/20 25 08/07/2025 FE+TI BC+FE R UIBC 286 ug/dL 131-42 5 normal Not Available [facility] ([facility]) [address] [place], [address], 08/07/2025 12:08:23 08/06/2008/07/2025 FE+TI BC+FE R iron 48 ug/dL 27-159 normal Not Available [facility] ([facility]) [address] [place], [address], 08/07/2025 12:08:23 08/06/2008/07/2025 FE+TI BC+FE R iron saturation 14 % 15-55 below low normal Not Available [facility] ([facility]) [address] [place], [address], 08/07/2025 12:08:23 08/06/20 25 08/07/2025 FE+TI BC+FE R ferritin 73 NG/mL 15-150 normal Not Available [facility] ([facility]) [address] [place], [address], 08/07/2025 12:08:23 08/06/2008/07/2025 CBC WITH DIFFE RENTI AL/PL ATELE T WBC 7.4 x10e3 /uL 3.4-10 .8 normal Not Available [facility] ([facility]) [address] [place], [address], 08/07/2025 12:08:23 08/06/20 25 08/07/2025 CBC WITH DIFFE RENTI AL/PL ATELE T RBC 4.66 x10e6 /uL 3.77-5 .28 normal Not Available [facility] ([facility]) [address], [place], [address], 08/07/2025 12:08:23 08/06/2008/07/2025 CBC WITH DIFFE RENTI AL/PL ATELE T hemoglobin 13.3 g/dL 11.1-1 5.9 normal Not Available [facility] ([facility]) [address], [place], [address], 08/07/2025 12:08:23 08/06/2008/07/2025 CBC WITH DIFFE RENTI AL/PL ATELE T hematocrit 40.7 % 34.0-4 6.6 normal Not Available [facility] ([facility]) [address], [place], [address], 08/07/2025 12:08:23 08/06/2008/07/2025 CBC WITH DIFFE RENTI AL/PL ATELE T MCV 87 fL 79-97 normal Not Available [facility] ([facility]) [address] [place], [address], 08/07/2025 12:08:23 08/06/2008/07/2025 CBC WITH DIFFE RENTI AL/PL ATELE T MCH 28.5 pg 26.6-3 3.0 normal Not Available [facility] ([facility]) [address] [place], [address], 08/07/2025 12:08:23 08/06/2008/07/2025 CBC WITH DIFFE RENTI AL/PL ATELE T MCHC 32.7 g/dL 31.5-3 5.7 normal Not Available [facility] ([facility]) [address] [place], [address], 08/07/2025 12:08:23 08/06/20 25 08/07/2025 CBC WITH DIFFE RENTI AL/PL ATELE T RDW 15.7 % 11.7-1 5.4 above high normal Not Available [facility] ([facility]) [address], [place], [address], 08/07/2025 12:08:23 08/06/20 25 08/07/2025 CBC WITH DIFFE RENTI AL/PL ATELE T platelets 392 x10e3 /uL 150-45 0 normal Not Available [facility] ([facility]) [address], [place], [address], 08/07/2025 12:08:23 08/06/2008/07/2025 CBC WITH DIFFE RENTI AL/PL ATELE T neutrophils 73 % not estab. normal Not Available [facility] ([facility]) [address], [place], [address], 08/07/2025 12:08:23 08/06/2008/07/2025 CBC WITH DIFFE RENTI AL/PL ATELE T lymphs 20 % not estab. normal Not Available [facility] ([facility]) [address], [place], [address], 08/07/2025 12:08:23 08/06/20 25 08/07/2025 CBC WITH DIFFE RENTI AL/PL ATELE T monocytes 4 % not estab. normal Not Available [facility] ([facility]) [address], [place], [address], 08/07/2025 12:08:23 08/06/20 25 08/07/2025 CBC WITH DIFFE RENTI AL/PL ATELE T eos 1 % not estab. normal Not Available [facility] ([facility]) [address], [place], [address], 08/07/2025 12:08:23 08/06/20 25 08/07/2025 CBC WITH DIFFE RENTI AL/PL ATELE T basos 1 % not estab. normal Not Available [facility] ([facility]) [address], [place], [address], 08/07/2025 12:08:23 08/06/20 25 08/07/2025 CBC WITH DIFFE RENTI AL/PL ATELE T immature cells PRODUCTION CONTROL PEGBOARD CLERK Not Available [facility] ([facility]) [address], [place], [address], 08/07/2025 12:08:23 08/06/20 25 08/07/2025 CBC WITH DIFFE RENTI AL/PL ATELE T neutrophils (absolute) 5.5 x10e3 /uL 1.4-7. 0 normal Not Available [facility] ([facility]) [address], [place], [address], 08/07/2025 12:08:23 08/06/20 25 08/07/2025 CBC WITH DIFFE RENTI AL/PL ATELE T lymphs (absolute) 1.5 x10e3 /uL 0.7-3. 1 normal Not Available [facility] ([facility]) [address] [place], [address], 08/07/2025 12:08:23 08/06/20 25 08/07/2025 CBC WITH DIFFE RENTI AL/PL ATELE T monocytes(ab solute) 0.3 x10e3 /uL 0.1-0. 9 normal Not Available [facility] ([facility]) [address], [place], [address], 08/07/2025 12:08:23 08/06/20 25 08/07/2025 CBC WITH DIFFE RENTI AL/PL ATELE T eos (absolute) 0.1 x10e3 /uL 0.0-0. 4 normal Not Available [facility] ([facility]) [address], [place], [address], 08/07/2025 12:08:23 08/06/20 25 08/07/2025 CBC WITH DIFFE RENTI AL/PL ATELE T baso (absolute) 0.0 x10e3 /uL 0.0-0. 2 normal Not Available [facility] ([facility]) [address], [place], [address], 08/07/2025 12:08:23 08/06/20 25 08/07/2025 CBC WITH DIFFE RENTI AL/PL ATELE T immature granulocytes 1 % not estab. Not Available [facility] ([facility]) [address], [place], [address], 08/07/2025 12:08:23 08/06/20 25 08/07/2025 CBC WITH DIFFE RENTI AL/PL ATELE T immature grans (abs) 0.1 x10e3 /uL 0.0-0. 1 Not Available [facility] ([facility]) [address], [place], [address], 08/07/2025 12:08:23 08/06/20 25 08/07/2025 CBC WITH DIFFE RENTI AL/PL ATELE T NRBC PRODUCTION CONTROL PEGBOARD CLERK Not Available [facility] ([facility]) [address], [place], [address], 08/07/2025 12:08:23 08/06/20 25 08/07/2025 CBC WITH DIFFE RENTI AL/PL ATELE T hematology comments: PRODUCTION CONTROL PEGBOARD CLERK Not Available [facility] ([facility]) [address], [place], [address], 08/07/2025 12:08:23 08/06/20 25 08/07/2025 VITAM IN D, 25-HY DROXY vitamin D, 25-hydroxy 21.4 NG/mL 30.0-1 00.0 below low normal Vitam in D defic iency has been defin ed by the Insti tute of Medic ine and an Endoc rine Socie ty pract ice guide line as a level of serum 25-OH vitam in D less than 20 ng/mL (1,2) . The Endoc rine Socie ty went on to furth er defin e vitam in D insuf ficie ncy as a level betwe en 21 and 29 ng/mL (2). 1. IOM (Inst itute of Medic ine). 2010. Nik ry refer ence migdalia es for calci um and D. Marie ledesma [place]: [facility] [employer] . 2. Amanda eric MF, [place], Bisch off-F errar i RIVAS, et al. Evalu ation , treat ment, and preve ntion of vitam in D defic iency : an Endoc rine Socie ty clini wesley pract ice guide line. JCEM. 2010; 96(7) :1911 -30. Not Available [facility] ([facility]) [address], [place], [address], 08/07/2025 12:08:24 Result Notes None recorded. Problems Name Problem SNOMED Code Status Onset Date Resolution Date Notes Provider Name and Address Organization Details Recorded Time Vitamin D deficiency 88051094 Active [address] Vick [address] [place] [address], [phone], [employer] 5 12:57:22 Iron deficiency anemia 46933789 Active 025 ALICE Vick [address] [place] [address], [phone], [employer] 5 08:48:16 Mild major depression, single episode 07231541 Active ALICE Nguyen [address] [place] [address], [phone], [employer] 5 09:16:14 Acute urinary tract infection 222568146 Active ALICE Nguyen [address] [place] [address], [phone], [employer] 5 09:11:50 Problem Notes None recorded. Procedures Surgical History Date Name Laterality Status Provider Name and Address Organization Details Recorded Time Breast Surgery completed [employer] 02/02/2025 08:19:19 Caesarean Section completed [employer] 02/02/2025 08:19:19 Caesarean Section completed [employer] 02/02/2025 08:24:08 Tubal Ligation completed [employer] 02/02/2025 08:25:11 Imaging Results None recorded. Procedure Notes None recorded. Medical Equipment None Reported. Allergies Allergen ID Allergen Name Allergen Category Reaction Reaction Severity Criticality Documentation Date Start Date Code Code System Note Provider Name and Address Organization Details Recorded Time 41023 Ultram medicatio n Not available Not available Not available 02/02/2025 30637 6 [employer] 08:22:40 Medications Name Sig Start Date Stop Date Status Note LastModified by Organization Details LastModified Time Pyridium 200 mg tablet Take 1 tablet 3 times a day by oral route for 2 days, for pain. 05/30 completed Not Available Not Available Not Available ondansetr on 8 mg disintegr ating tablet Place 1 tablet 3 times a day by translin gual route for 10 days, for nausea. 06/07 completed Not Available Not Available Not Available ceftriaxo ne 1 gram solution for injection Take 1 g by injectio n route. 05/24 completed Not Available Not Available Not Available ergocalci ferol (vitamin D2) 1,250 mcg (50,000 unit) capsule TAKE ONE CAPSULE BY MOUTH ONCE WEEKLY active Not Available Not Available No t Available levofloxa neha 500 mg tablet TAKE ONE TABLET BY MOUTH ONCE DAILY FOR 7 DAYS -- FINISH ALL MEDICINE -- 05/24 completed Not Available Not Available Not Available cefdinir 300 mg capsule TAKE ONE CAPSULE BY MOUTH TWICE DAILY FOR 10 DAYS -- FINISH ALL MEDICINE -- 08/06 completed Not Available Not Available Not Available cholecalc iferol (vitamin D3) 50 mcg (2,000 unit) tablet TAKE ONE TABLET BY MOUTH EVERY DAY active Not Available Not Available No t Available Slow Release Iron 143 mg (45 mg iron) tablet,ex tended release TAKE ONE TABLET BY MOUTH EVERY DAY 08/06 completed Not Available Not Available Not Available Venofer 200 mg iron/10 mL intraveno us solution Inject 300 mg by intraven ous route as directed . 08/06 completed As directed Not Available Not Available Not Available Slow Release Iron 142 mg (45 mg iron) tablet,ex tended release Take 1 tablet every day by oral route for 90 days. 05/04 completed Not Available Not Available Not Available Rexulti 0.5 mg tablet TAKE ONE TABLET BY MOUTH EVERY DAY active Not Available Not Available No t Available Vraylar 1.5 mg capsule TAKE ONE CAPSULE BY MOUTH EVERY DAY 07/19 completed Not Available Not Available Not Available Vitals Date Recorded Body height Body mass index (BMI) Body weight Oxygen saturation Oxygen saturation in Arterial blood by Pulse oximetry Heart rate Body temperature Systolic And Diastolic Provider Name and Address Organization Details Last Updated DateTime 170.18 cm 41.3 kg/m2 610593. 67 g 97 % 97 % 80 /min 98.6 [degF] 126/86 mm[Hg] Mamta Artis [employer], [employer]. 08:18:04 Social History Question Answer Notes LastModified by Organization Details LastModified Time Tobacco Smoking Status Former Smoker Mamta tripp, [employer]. 02/02/2025 08:19:19 Do You Have An Advance Directive? No Information not available 02/02/2025 Is Your Home Air Conditioned? Yes Information not available 02/02/2025 If You Are , What Was Your Level Of Alcohol Consumption Prior To ? None Information not available 02/02/2025 Do You Wear A Helmet When Biking? No Information not available 02/02/2025 Are You Blind Or Do You Have Difficulty Seeing? No Information not available 02/02/2025 What Is Your Level Of Caffeine Consumption? Moderate Information not available 02/02/2025 Are You A Caregiver? No Information not available 08/06/2025 What Type Of Curator Of Collections Do You Use? None Information not available 02/02/2025 Have You Been To An Area Known To Be High Risk For COVID-19? No Information not available 02/02/2025 Are You Deaf Or Do You Have Serious Difficulty Hearing? No Information not available 02/02/2025 What Type Of Diet Are You Following? REGULAR Information not available 02/02/2025 What Is The Highest Grade Or Level Of School You Have Completed Or The Highest Degree You Have Received? [id number] Information not available 02/02/2025 Who Is Your Employer? [employer] Information not available 02/02/2025 Have There Been Any Changes To Your Family Or Social Situation? No Information not available 02/02/2025 When Did You Quit Smoking? 1-5yearssincelastci chantel Stop Date 2019 Information not available 05/04/2025 Are There Any Guns Present In Your Home? Yes Information not available 02/02/2025 Which Of Your Hands Is Dominant? Right Information not available 02/02/2025 Do You Engage In Moderate/heavy Exercise (e.g. Brisk Walk, Jogging, Strength Training, Etc)? No Information not available 08/06/2025 What Is Your Home Situation? Other Information not available 02/02/2025 How Many Times In The Past Year Have You Used An Illegal Drug Or Used A Prescription Medication For Nonmedical Reasons? 0 Information not available 08/06/2025 Where Do You Live? SingleLevelHouse Information not available 08/06/2025 Do You Have A Medical Power Of Back Feeder [employer] Layup Line? No Information not available 02/02/2025 What Was The Date Of Your Most Recent Tobacco Screening? 08/06/2025 Information not available 08/06/2025 Are There Any Occupational Health Risks Where You Work? N/A Information not available 02/02/2025 What Is Your Current Pack Years? 10-19packyears Information not available 08/06/2025 Do You Have Any Pets? Yes Information not available 02/02/2025 Do You Use Protection During Sex? No Information not available 02/02/2025 What Is Your Relationship Status? Information not available 02/02/2025 Have You Repeated Any Grades? No Information not available 02/02/2025 Do You Wear A Seatbelt When Driving Or As A Passenger? Yes Information not available 08/06/2025 Do You Use Your Seat Belt Or Car Seat Routinely? Yes Information not available 02/02/2025 Are You Sexually Active? Yes Information not available 02/02/2025 Do You Have Any Siblings? 1 Information not available 02/02/2025 Do You Have Smoke And Carbon Monoxide Detectors In Your Home? Yes Information not available 02/02/2025 At What Age Did You Start Smoking Tobacco? 16 Information not available 02/02/2025 Are You Passively Exposed To Smoke? No Information not available 02/02/2025 Are There Any Smokers In Your House? No Information not available 02/02/2025 How Much Tobacco Do You Smoke? No Information not available 02/02/2025 Do You Participate In Social Media? Yes Information not available 02/02/2025 What Types Of Sporting Activities Do You Participate In? N/A Information not available 02/02/2025 Do You Use Sunscreen Routinely? No Information not available 02/02/2025 Has Tobacco Cessation Counseling Been Provided? No Information not available 02/02/2025 How Many Years Have You Smoked Tobacco? 10 Information not available 02/02/2025 Have You Recently Traveled Abroad? No Information not available 02/02/2025 Do You Have Difficulty Walking Or Climbing Stairs? No Information not available 02/02/2025 Are You Currently In School? No Information not available 02/02/2025 What Contraceptive Method Was Reported At Start Of This Visit? Female Sterilization Information not available 05/04/2025 Do You Feel Safe In Your Home? Yes Information not available 08/06/2025 Do You Have Any Dietary Restrictions? No Information not available 02/02/2025 Sex: Unknown Functional Status Question Answer Note LastModified by Organizat ion Details LastModified Time Do you use any illicit or recreational drugs? No Information not available 02/02/2025 Do you feel safe in your relationship? Yes Information n ot available 08/06/2025 Do you or have you ever used any other forms of tobacco or nicotine? No Information not available 02/02/2025 What is your level of alcohol consumption? None Information not available 02/02/2025 Are you currently employed? Yes Information not available 02/02/2025 Do you have transportation difficulties? No Information not available 02/02/2025 Are you able to walk independently without assistance or assistive devices? YESWOREST Information not available 02/02/2025 Do you have difficulty doing errands alone? No Information not available 02/02/2025 Are you able to care for yourself independently? Yes Information not available 02/02/2025 Do you have difficulty dressing, bathing, grooming, or toileting? No Information not available 02/02/2025 What is your exercise level? None Information not available 02/02/2025 Mental Status Question Answer Note LastModified by Organizat ion Details LastModified Time Do you feel stressed (tense, restless, nervous, or anxious, or unable to sleep at night)? [id number] Information not available 02/02/2025 Do you have difficulty concentrating, remembering or making decisions? No Information no t available 02/02/2025 Are you or have you been involved with bullying? No Information not available 02/02/2025 Family History Relationship Description Onset Age of this Age Resolved Age Notes LastModified by Organization Details LastModified Time Mother Hypertensive disorder Not available 2024 08:19:18 Mother Heart disease Not available 2024 08:19:18 Maternal Grandfather Heart disease Not available 2024 08:19:18 Father Hypertensive disorder Not available 2024 08:19:18 Father Heart disease Not available 2024 08:19:18 Medical History Condition Response Anxiety Disorder Y Hospitalizations N Obesity Y Acid Reflux (GERD) Y Emergency room visit since last appointm ent. N Hypertension Y Depression Y Gynecological History Statement/Question Response Abnormal Pap N Flow Heavy Date of LMP 07/30/2025 HPV Vaccine N Duration of Flow (days) 9 Most Recent Mammogram Current Control Method Tubal Ligat ion Age at Menarche 13 Age at First Child 19 Frequency of Cycle (Q days) 20 Menses Monthly Y Date of Last Pap Smear LMP Approximate Desired Control Method Ablation Obstetrics History GPAL:G 2 P 2 0 0 2 Type Value Multiple Births 0 Full Term 2 Induced 0 Spontaneous 0 Premature 0 Living 2 Ectopics 0 Total 2 Past Encounters Encounter ID Performer Location Encounter Start Date Encounter Closed Date Diagnosis/Indication Diagnosis SNOMED-CT Code Diagnosis ICD10 Code Diagnosis IMO Codes Diagnosis Note [id number] ALICE Vick [facility] [address] [place] [address] 08/06/2025 08:06:10 08/06/2025 08:42:01 Vitamin D deficiency 29660127 E55.9 325381 Iron defic iency anemia 05688148 D50.9 71826579 Health Concerns Section Related Observation LastModified by Organization Detai ls LastModified Time None Recorded Concern Status LastModified by Organization Details LastModified Time None Recorded Payers Encounter Date Sequence Insurance Name Policy Number Policy Ohara Covered Member ID Ohara Member ID Guarantor Name 08/06/2025 1 [place] [id number] Kyeanna Biggs [id number] Keyanna Biggs Notes Date Note Type Note Provider Name and Address Organization Details Recorded Time 08/06/2025 text/html ROS as noted in the HPI Patient presents for followup. History of iron deficiency anemia. Has last infusion next week. Unable to get uterine ablation due to scar adherence to bladder so is scheduled for a hysterectomy in September. Otherwise states that she is doing well ALICE Vick [address] [place] [address], [phone], [facility] [employer] 08/06/2025 14:13:11 OBGyn Episode No OBEpisode recorded.
--- OUTSIDE RECORDS SUMMARY | 2025-08-13 09:04 | XMS_ITS | Patient Health Record ---
Author Organization [facility] [address] [facility] [address] SAT[place] Alvarez [id number] Care Team Providers Care Refueling Rampman Name Role Phone Williams Lang Primary Care Provider Nya Rubio Unavailable [phone] Allergies Allergen (clinical drug ingredient) Drug/Non Drug [...] W/U Status Risk Notes Problem Bipolar disorder (44485288) Bipolar disorder NOS (296.7) Active confirmed Problem Solitary nodule of lung (258285593) Lung nodule (R91.1) Active confirmed Problem Anxiety (61571920) Anxiety (F41.9) Active confirmed Problem Mixed anxiety and depressive disorder (155328518) Depression with anxiety (F41.8) Active confirmed Problem Mood disorder (70360159) Mood disorder (F39) Active confirmed Problem Ultrasonography of breast abnormal (06586947407887694) Abnormal ultrasound of breast (R92.8) Active confirmed Problem Obese class I (finding) (320163869649737) Obesity (BMI 30.0-34.9) (E66.9) Active confirmed Problem Obesity (308631291) Obesity (BMI 35.0-39.9 without comorbidity) (E66.9) Active confirmed Plan Of Treatment No Information Insurance Providers Payer Name Payer Address Payer Phone Subscriber Number Group Number Insured Name Patient Relationship to Insured Coverage Start Date Coverage End Date YULI ROSAS [employer] [address] [place] [address] [id number] CHRISTINE KAN Self - patient is the insured Medications Administered Medication Instructions Date of Administration Dosage Notes Vistaril 75 mg 03/30/2007 Medical (General) History Surgical History Surgery Date(Month/Year) none C section 9-9-10 Breast reduction -2016 Tubal Ligation Hospitalization History Reason Date(Month/Year) [facility], Right Ear Ache February 26, 2008 [facility] C section 06/19/20 10
--- OUTSIDE RECORDS SUMMARY | 2025-08-13 09:04 | XMS_ITS | Clinical Summary ---
Author Organization [facility] Address [address] [place] [address] Care Team Providers Care Filer Helper Name Role Phone Yaw Rubio MD Primary Care Provider [phone] Allergies Active Allergy Reactions Criticality Noted Date [...] to complete this topic Insurance SATYA [id number] [id number] [facility] Care Teams Filer Helper Relationship Specialty Start Date End Date Yaw Rubio MD [address] [place] [facility] [address] [facility] [address] [place] [address] PCP - General Family Medicine 02/15/17
--- OUTSIDE RECORDS SUMMARY | 2025-08-13 09:05 | XMS_ITS | Data Portability ---
Author Organization [employer] Address [address] [place] [address] Assessment Encounter Date Assessment Date Assessment LastModified by Organization Details LastModified Time 05/21/2025 05/21/2025 Patient presents with symptoms of UTI. Results of dipstick were positive for UTI. Advised to drink clear fluids, Tylenol for pain and take prescribed medications as instructed. Patient encouraged to follow up within 1 week if not improving. Not available 05/21/2025 10:05:12 Plan of Treatment Reminders Order Date Submit Date Provider Last Modified By Organization Details Last Modified Time Details Appointments FOLLOW UP 30 2025 08:00A Abdelrahman Delcid PA-C Not available Not available Not available Lab vitamin D, 25-hydrox y, total, serum 2024 025 [facility], [address] [place], [address], 08/07/2025 12:08:24 CBC w/ auto diff 2024 025 [facility], [address] [place], [address], 08/07/2025 12:08:24 iron + TIBC + ferritin, serum 2024 025 [facility], [address] [place], [address], 08/07/2025 12:08:23 culture, urine 2024 025 [facility] [address] [place], [address], 05/23/2025 23:07:14 urinalysi s, dipstick [id number], [address] [facility], [place], [address], 05/21/2025 09:19:38 lipid panel, serum 2024 025 [facility] [address] [place], [address], 05/05/2025 08:12:40 vitamin D, 25-hydrox y, total, serum 2024 025 [facility] [address] [place], [address], 05/05/2025 08:12:41 TSH, ultra-sen sitive, serum 2024 025 [facility] [address] [place], [address], 05/05/2025 08:12:40 iron + TIBC + ferritin, serum 2024 025 [facility] [address] [place], [address], 05/05/2025 08:12:38 CMP, serum or plasma 2024 025 [facility] [address] [place], [address], 05/05/2025 08:12:39 CBC w/ auto diff 2024 025 [facility] [address] [place], [address], 05/05/2025 08:12:38 lipid panel, serum 2024 025 [facility] [address] [place], [address], 02/03/2025 08:25:37 vitamin D, 25-hydrox y, total, serum 2024 025 [facility] [address] [place], [address], 02/03/2025 08:25:38 CMP, serum or plasma 2024 025 [facility] [address] [place], [address], 02/03/2025 08:25:36 CBC w/ auto diff 2024 025 [facility] [address] [place], [address], 02/03/2025 08:25:36 iron + TIBC + ferritin, serum 2024 025 [facility] [address] [place], [address], 02/03/2025 08:25:36 TSH, ultra-sen sitive, serum 2024 025 [facility] [address] [place], [address], 02/03/2025 08:25:38 Hepatitis C IgG Ab, qual, serum 2024 025 [facility]), [address] [place], [address], 02/03/2025 08:25:37 HIV 1 + 2, meaningfu l use set 2024 025 [facility]), [address] [place], [address], 02/03/2025 08:25:38 Referral gynecolog ist referral - first available appt 2024 025 SPRECKELS Giuliana Lux DO, [address] [place] [address] [address], [address], [place], [address], 06/04/2025 19:52:13 Procedures None recorded. Surgeries None recorded. Imaging None recorded. Medication Orders levofloxa neha 500 mg tablet 2024 [facility], [address] [place] [address] [address] [place], [id number], 05/24/2025 09:07:58 Pyridium 200 mg tablet 2024 [facility], [address] [place] [address] [address] [place], [id number], 05/30/2025 05:01:49 ondansetr on 8 mg disintegr ating tablet 2024 [facility], [address] [place] [address] [address] [place], [id number], 06/07/2025 05:01:12 ceftriaxo ne 1 gram solution for injection [address], [address] [place] [address] [address] [place], [id number], 05/24/2025 08:57:35 Patient TargetsNo targets recorded. Patient Instructions Encounter Date Encounter Id Patient Instructions Last Modified By Organization Details Last Modified Time 02/02/2025 [id number] fainting: care instructions [email or web address] Not available 02/02/2025 09:23:02 lightheadedness or faintness: care instructions [email or web address] Not available 02/02/2025 09:23:02 heavy menstrual periods: care instructions [email or web address] Not available 02/02/2025 09:23:02 HIV testing: car e instructions Not available 02/02/2025 09:23:02 05/04/2025 [id number] iron deficiency anemia: care instructions [email or web address] Not available 05/04/2025 08:33:26 05/21/2025 [id number] iron deficiency anemia: care instructions [email or web address] Not available 05/21/2025 10:06:08 05/24/2025 [id number] iron deficiency anemia: care instructions [email or web address] Not available 05/24/2025 15:07:43 08/06/2025 [id number] iron deficiency anemia: care instructions [email or web address] Not available 08/06/2025 09:25:57 Reason for Referral Research Intern Referral for Me norrhagia first available appt Referring Physician: Em Delcid, Family Medicine, Encounter Date: 02/02/2025 Results Created Date Observation Date Name Description Value Unit Range Abnormal Flag Note LastModifiedBy Organization Detail LastModifiedTime 02/03/2002/03/2025 FE+TI BC+FE R iron bind.cap.(TI BC) 426 ug/dL 250-45 0 normal Not Available [facility]) [address] [place], [address], 02/03/2025 08:25:36 02/03/2002/03/2025 FE+TI BC+FE R UIBC 407 ug/dL 131-42 5 normal Not Available [facility] ([facility]) [address] [place], [address], 02/03/2025 08:25:36 02/03/2002/03/2025 FE+TI BC+FE R iron 19 ug/dL 27-159 below low normal Not Available [facility] ([facility]) [address] [place], [address], 02/03/2025 08:25:36 02/03/2002/03/2025 FE+TI BC+FE R iron saturation 4 % 15-55 alert low Not Available [facility]) [address] [place], [address], 02/03/2025 08:25:36 02/03/2002/03/2025 FE+TI BC+FE R ferritin 11 NG/mL 15-150 below low normal Not Available [facility] ([facility]) [address] [place], [address], 02/03/2025 08:25:36 02/03/2002/03/2025 CBC WITH DIFFE RENTI AL/PL ATELE T WBC 7.9 x10e3 /uL 3.4-10 .8 normal Not Available [facility] ([facility]) [address] [place], [address], 02/03/2025 08:25:36 02/03/2002/03/2025 CBC WITH DIFFE RENTI AL/PL ATELE T RBC 4.58 x10e6 /uL 3.77-5 .28 normal Not Available [facility] ([facility]) [address] [place], [address], 02/03/2025 08:25:36 02/03/2002/03/2025 CBC WITH DIFFE RENTI AL/PL ATELE T hemoglobin 10.3 g/dL 11.1-1 5.9 below low normal Not Available [facility] ([facility]) [address] [place], [address], 02/03/2025 08:25:36 02/03/2002/03/2025 CBC WITH DIFFE RENTI AL/PL ATELE T hematocrit 34.3 % 34.0-4 6.6 normal Not Available [facility] ([facility]) [address] [place], [address], 02/03/2025 08:25:36 02/03/2002/03/2025 CBC WITH DIFFE RENTI AL/PL ATELE T MCV 75 fL 79-97 below low normal Not Available [facility] ([facility]) [address] [place], [address], 02/03/2025 08:25:36 02/03/2002/03/2025 CBC WITH DIFFE RENTI AL/PL ATELE T MCH 22.5 pg 26.6-3 3.0 below low normal Not Available [facility] ([facility]) [address] [place], [address], 02/03/2025 08:25:36 02/03/2002/03/2025 CBC WITH DIFFE RENTI AL/PL ATELE T MCHC 30.0 g/dL 31.5-3 5.7 below low normal Not Available [facility] ([facility]) [address] [place], [address], 02/03/2025 08:25:36 02/03/2002/03/2025 CBC WITH DIFFE RENTI AL/PL ATELE T RDW 15.7 % 11.7-1 5.4 above high normal Not Available [facility] ([facility]) [address] [place], [address], 02/03/2025 08:25:36 02/03/2002/03/2025 CBC WITH DIFFE RENTI AL/PL ATELE T platelets 450 x10e3 /uL 150-45 0 normal Not Available [facility] ([facility]) [address] [place], [address], 02/03/2025 08:25:36 02/03/2002/03/2025 CBC WITH DIFFE RENTI AL/PL ATELE T neutrophils 73 % not estab. normal Not Available [facility] ([facility]) [address] [place], [address], 02/03/2025 08:25:36 02/03/2002/03/2025 CBC WITH DIFFE RENTI AL/PL ATELE T lymphs 19 % not estab. normal Not Available [facility] ([facility]) [address] [place], [address], 02/03/2025 08:25:36 02/03/20 25 02/03/2025 CBC WITH DIFFE RENTI AL/PL ATELE T monocytes 6 % not estab. normal Not Available [facility] ([facility]) [address] [facility], [place], [address], 02/03/2025 08:25:36 02/03/2002/03/2025 CBC WITH DIFFE RENTI AL/PL ATELE T eos 1 % not estab. normal Not Available [facility] ([facility]) [address] [place], [address], 02/03/2025 08:25:36 02/03/2002/03/2025 CBC WITH DIFFE RENTI AL/PL ATELE T basos 1 % not estab. normal Not Available [facility] ([facility]) [address] [place], [address], 02/03/2025 08:25:36 02/03/2002/03/2025 CBC WITH DIFFE RENTI AL/PL ATELE T immature cells MANIFEST/ORDER [employer]GAN[employer]ER PRINT ORDERS Not Available [facility]) [address] [place], [address], 02/03/2025 08:25:36 02/03/2002/03/2025 CBC WITH DIFFE RENTI AL/PL ATELE T neutrophils (absolute) 5.8 x10e3 /uL 1.4-7. 0 normal Not Available [facility] ([facility]) [address] [place], [address], 02/03/2025 08:25:36 02/03/2002/03/2025 CBC WITH DIFFE RENTI AL/PL ATELE T lymphs (absolute) 1.5 x10e3 /uL 0.7-3. 1 normal Not Available [facility] ([facility]) [address] [place], [address], 02/03/2025 08:25:36 02/03/20 25 02/03/2025 CBC WITH DIFFE RENTI AL/PL ATELE T monocytes(ab solute) 0.4 x10e3 /uL 0.1-0. 9 normal Not Available [facility] ([facility]) [address] [facility], [place], [address], 02/03/2025 08:25:36 02/03/2002/03/2025 CBC WITH DIFFE RENTI AL/PL ATELE T eos (absolute) 0.1 x10e3 /uL 0.0-0. 4 normal Not Available [facility] ([facility]) [address] [facility], [place], [address], 02/03/2025 08:25:36 02/03/2002/03/2025 CBC WITH DIFFE RENTI AL/PL ATELE T baso (absolute) 0.0 x10e3 /uL 0.0-0. 2 normal Not Available [facility] ([facility]) [address] [facility], [place], [address], 02/03/2025 08:25:36 02/03/2002/03/2025 CBC WITH DIFFE RENTI AL/PL ATELE T immature granulocytes 0 % not estab. Not Available [facility] ([facility]) [address] [place], [address], 02/03/2025 08:25:36 02/03/2002/03/2025 CBC WITH DIFFE RENTI AL/PL ATELE T immature grans (abs) 0.0 x10e3 /uL 0.0-0. 1 Not Available [facility] ([facility]) [address] [place], [address], 02/03/2025 08:25:36 02/03/2002/03/2025 CBC WITH DIFFE RENTI AL/PL ATELE T NRBC MANIFEST/[employer] PRINT ORDERS Not Available [facility] ([facility]) [address] [facility], [place], [address], 02/03/2025 08:25:36 02/03/2002/03/2025 CBC WITH DIFFE RENTI AL/PL ATELE T hematology comments: MANIFEST/ORDER [employer]GAN[employer] PRINT ORDERS Not Available [facility]) [address] [facility] [place], [address], 02/03/2025 08:25:36 02/03/20 25 02/03/2025 COMP. METAB OLIC PANEL (14) glucose 89 mg/dL 70-99 normal Not Available [facility] ([facility]) [address] [facility] [place], [address], 02/03/2025 08:25:36 02/03/20 25 02/03/2025 COMP. METAB OLIC PANEL (14) BUN 8 mg/dL 6-20 normal Not Available [facility] ([facility]) [address] [facility] [place], [address], 02/03/2025 08:25:36 02/03/20 25 02/03/2025 COMP. METAB OLIC PANEL (14) creatinine 0.88 mg/dL 0.57-1 .00 normal Not Available [facility] ([facility]) [address] [place], [address], 02/03/2025 08:25:36 02/03/20 25 02/03/2025 COMP. METAB OLIC PANEL (14) eGFR 88 mL/mi n/1.7 3 >59 normal Not Available [facility] ([facility]) [address] [place], [address], 02/03/2025 08:25:36 02/03/20 25 02/03/2025 COMP. METAB OLIC PANEL (14) BUN/creatini ne ratio 9 9-23 normal Not Available [facility]) [address] [place], [address], 02/03/2025 08:25:36 02/03/20 25 02/03/2025 COMP. METAB OLIC PANEL (14) sodium 139 mmol/ L 134-14 4 normal Not Available [facility] ([facility]) [address] [place], [address], 02/03/2025 08:25:36 02/03/20 25 02/03/2025 COMP. METAB OLIC PANEL (14) potassium 4.0 mmol/ L 3.5-5. 2 normal Not Available [facility] ([facility]) [address] [facility] [place], [address], 02/03/2025 08:25:36 02/03/20 25 02/03/2025 COMP. METAB OLIC PANEL (14) chloride 100 mmol/ L 96-106 normal Not Available [facility] ([facility]) [address] [facility] [place], [address], 02/03/2025 08:25:36 02/03/20 25 02/03/2025 COMP. METAB OLIC PANEL (14) carbon dioxide, total 24 mmol/ L 20-29 normal Not Available [facility] ([facility]) [address] [place], [address], 02/03/2025 08:25:36 02/03/2002/03/2025 COMP. METAB OLIC PANEL (14) calcium 9.2 mg/dL 8.7-10 .2 normal Not Available [facility] ([facility]) [address] [place], [address], 02/03/2025 08:25:36 02/03/2002/03/2025 COMP. METAB OLIC PANEL (14) protein, total 6.8 g/dL 6.0-8. 5 normal Not Available [facility] ([facility]) [address] [place], [address], 02/03/2025 08:25:36 02/03/2002/03/2025 COMP. METAB OLIC PANEL (14) albumin 4.3 g/dL 3.9-4. 9 normal Not Available [facility] ([facility]) [address] [place], [address], 02/03/2025 08:25:36 02/03/20 25 02/03/2025 COMP. METAB OLIC PANEL (14) globulin, total 2.5 g/dL 1.5-4. 5 Not Available [facility] ([facility]) [address] [place], [address], 02/03/2025 08:25:36 02/03/20 25 02/03/2025 COMP. METAB OLIC PANEL (14) bilirubin, total 0.4 mg/dL 0.0-1. 2 normal Not Available [facility] ([facility]) [address] [place], [address], 02/03/2025 08:25:36 02/03/20 25 02/03/2025 COMP. METAB OLIC PANEL (14) alkaline phosphatase 87 IU/L 44-121 normal Not Available [facility]) [address] [place], [address], 02/03/2025 08:25:36 02/03/20 25 02/03/2025 COMP. METAB OLIC PANEL (14) AST (SGOT) 15 IU/L 0-40 normal Not Available [facility] ([facility]) [address] [place], [address], 02/03/2025 08:25:36 02/03/20 25 02/03/2025 COMP. METAB OLIC PANEL (14) ALT (SGPT) 12 IU/L 0-32 normal Not Available [facility] ([facility]) [address] [place], [address], 02/03/2025 08:25:36 02/03/20 25 02/03/2025 LIPID PANEL cholesterol, total 195 mg/dL 100-19 9 normal Not Available [facility] ([facility]) [address] [place], [address], 02/03/2025 08:25:37 02/03/20 25 02/03/2025 LIPID PANEL triglyceride s 146 mg/dL 0-149 normal Not Available [facility] ([facility]) [address] [facility], [place], [address], 02/03/2025 08:25:37 02/03/2002/03/2025 LIPID PANEL HDL cholesterol 47 mg/dL >39 normal Not Available [facility]) [address] [place], [address], 02/03/2025 08:25:37 02/03/2002/03/2025 LIPID PANEL VLDL cholesterol wesley 26 mg/dL 5-40 Not Available [facility] ([facility]) [address] [place], [address], 02/03/2025 08:25:37 02/03/2002/03/2025 LIPID PANEL LDL chol calc ([facility]) 122 mg/dL 0-99 above high normal Not Available [facility] ([facility]) [address] [facility], [place], [address], 02/03/2025 08:25:37 02/03/2002/03/2025 LIPID PANEL LDL calc comment: MANIFEST/ORDER [employer]GAN[employer] PRINT ORDERS Not Available [facility]) [address] [facility], [place], [address], 02/03/2025 08:25:37 02/03/2002/03/2025 HCV ANTIB CHUY CASCA DE(PC R/GEN O) HCV Ab Non Reacti ve non reacti ve Not Available [facility] ([facility]) [address] [facility], [place], [address], 02/03/2025 08:25:37 02/03/2002/03/2025 HCV ANTIB CHUY CASCA DE(PC R/GEN O) interpretati on: Commen t Not infec viviana with HCV unles s early or acute infec tion is suspe cted (whic h may be delay ed in an immun ocomp romis ed indiv idual ), or other evide nce exist s to indic ate HCV infec tion. Not Available [facility] ([facility]) [address] [facility], [place], [address], 02/03/2025 08:25:37 02/03/2002/03/2025 TSH TSH 2.170 uIU/m L 0.450- 4.500 normal Not Available [facility] ([facility]) [address] [facility], [place], [address], 02/03/2025 08:25:37 02/03/2002/03/2025 VITAM IN D, 25-HY DROXY vitamin D, 25-hydroxy 15.1 NG/mL 30.0-1 00.0 below low normal Vitam [...] 1. IOM (Inst itute of Medic ine). 2009. Myrandaa ry refer ence migdalia es for calci um and D. Marie ledesma [place]: [facility] . 2. Amanda eric MF, Jose ey [place], Dev off-F errar i RIVAS, et al. Evalu ation , treat ment, and preve ntion of vitam in D defic iency : an Endoc rine Socie ty clini wesley pract ice guide line. JCEM. 2010; 96(7) :1911 -30. Not Available [facility] ([facility]) [address] [facility], [place], [address], 02/03/2025 08:25:38 02/03/2002/03/2025 HIV AB/P2 4 AG WITH REFLE X HIV Ab/P24 Ag screen Non Reacti ve non reacti ve HIV-1 /HIV- 2 antib odies and HIV-1 p24 antig en were NOT detec viviana. There is no labor atory evide nce of HIV infec tion. HIV Negat christianne Not Available [facility] ([facility]) [address] [place], [address], 02/03/2025 08:25:38 05/04/2005/05/2025 FE+TI BC+FE R iron bind.cap.(TI BC) 379 ug/dL 250-45 0 normal Not Available [facility] ([facility]) [address] [place], [address], 05/05/2025 08:12:38 05/04/2005/05/2025 FE+TI BC+FE R UIBC 349 ug/dL 131-42 5 normal Not Available [facility] ([facility]) [address] [place], [address], 05/05/2025 08:12:38 05/04/2005/05/2025 FE+TI BC+FE R iron 30 ug/dL 27-159 normal Not Available [facility] ([facility]) [address] [place], [address], 05/05/2025 08:12:38 05/04/2005/05/2025 FE+TI BC+FE R iron saturation 8 % 15-55 alert low Not Available [facility]) [address] [place], [address], 05/05/2025 08:12:38 05/04/2005/05/2025 FE+TI BC+FE R ferritin 18 NG/mL 15-150 normal Not Available [facility] ([facility]) [address] [place], [address], 05/05/2025 08:12:38 05/04/2005/05/2025 CBC WITH DIFFE RENTI AL/PL ATELE T WBC 6.7 x10e3 /uL 3.4-10 .8 normal Not Available [facility] ([facility]) [address] [place], [address], 05/05/2025 08:12:38 05/04/2005/05/2025 CBC WITH DIFFE RENTI AL/PL ATELE T RBC 4.70 x10e6 /uL 3.77-5 .28 normal Not Available [facility] ([facility]) [address] [place], [address], 05/05/2025 08:12:38 05/04/2005/05/2025 CBC WITH DIFFE RENTI AL/PL ATELE T hemoglobin 12.2 g/dL 11.1-1 5.9 normal Not Available [facility] ([facility]) [address] [place], [address], 05/05/2025 08:12:38 05/04/2005/05/2025 CBC WITH DIFFE RENTI AL/PL ATELE T hematocrit 40.1 % 34.0-4 6.6 normal Not Available [facility] ([facility]) [address] [place], [address], 05/05/2025 08:12:38 05/04/2005/05/2025 CBC WITH DIFFE RENTI AL/PL ATELE T MCV 85 fL 79-97 normal Not Available [facility] ([facility]) [address] [place], [address], 05/05/2025 08:12:38 05/04/2005/05/2025 CBC WITH DIFFE RENTI AL/PL ATELE T MCH 26.0 pg 26.6-3 3.0 below low normal Not Available [facility] ([facility]) [address] [place], [address], 05/05/2025 08:12:38 05/04/2005/05/2025 CBC WITH DIFFE RENTI AL/PL ATELE T MCHC 30.4 g/dL 31.5-3 5.7 below low normal Not Available [facility] ([facility]) [address] [place], [address], 05/05/2025 08:12:38 05/04/2005/05/2025 CBC WITH DIFFE RENTI AL/PL ATELE T RDW 15.6 % 11.7-1 5.4 above high normal Not Available [facility] ([facility]) [address] [place], [address], 05/05/2025 08:12:38 05/04/2005/05/2025 CBC WITH DIFFE RENTI AL/PL ATELE T platelets 409 x10e3 /uL 150-45 0 normal Not Available [facility] ([facility]) [address] [place], [address], 05/05/2025 08:12:38 05/04/2005/05/2025 CBC WITH DIFFE RENTI AL/PL ATELE T neutrophils 75 % not estab. normal Not Available [facility] ([facility]) [address] [place], [address], 05/05/2025 08:12:38 05/04/2005/05/2025 CBC WITH DIFFE RENTI AL/PL ATELE T lymphs 19 % not estab. normal Not Available [facility] ([facility]) [address] [place], [address], 05/05/2025 08:12:38 05/04/2005/05/2025 CBC WITH DIFFE RENTI AL/PL ATELE T monocytes 5 % not estab. normal Not Available [facility] ([facility]) [address] [place], [address], 05/05/2025 08:12:38 05/04/20 25 05/05/2025 CBC WITH DIFFE RENTI AL/PL ATELE T eos 1 % not estab. normal Not Available [facility] ([facility]) [address] [place], [address], 05/05/2025 08:12:38 05/04/2005/05/2025 CBC WITH DIFFE RENTI AL/PL ATELE T basos 0 % not estab. normal Not Available [facility] ([facility]) [address] [facility], [place], [address], 05/05/2025 08:12:38 05/04/2005/05/2025 CBC WITH DIFFE RENTI AL/PL ATELE T immature cells MANIFEST/ORDER [employer]GAN[employer]ER PR[employer] ORDERS Not Available [facility] ([facility]) [address] [place], [address], 05/05/2025 08:12:38 05/04/2005/05/2025 CBC WITH DIFFE RENTI AL/PL ATELE T neutrophils (absolute) 4.9 x10e3 /uL 1.4-7. 0 normal Not Available [facility] ([facility]) [address] [place], [address], 05/05/2025 08:12:38 05/04/2005/05/2025 CBC WITH DIFFE RENTI AL/PL ATELE T lymphs (absolute) 1.3 x10e3 /uL 0.7-3. 1 normal Not Available [facility] ([facility]) [address] [place], [address], 05/05/2025 08:12:38 05/04/20 25 05/05/2025 CBC WITH DIFFE RENTI AL/PL ATELE T monocytes(ab solute) 0.4 x10e3 /uL 0.1-0. 9 normal Not Available [facility] ([facility]) [address] [place], [address], 05/05/2025 08:12:38 05/04/20 25 05/05/2025 CBC WITH DIFFE RENTI AL/PL ATELE T eos (absolute) 0.1 x10e3 /uL 0.0-0. 4 normal Not Available [facility] ([facility]) [address] [facility], [place], [address], 05/05/2025 08:12:38 05/04/2005/05/2025 CBC WITH DIFFE RENTI AL/PL ATELE T baso (absolute) 0.0 x10e3 /uL 0.0-0. 2 normal Not Available [facility] ([facility]) [address] [facility], [place], [address], 05/05/2025 08:12:38 05/04/2005/05/2025 CBC WITH DIFFE RENTI AL/PL ATELE T immature granulocytes 0 % not estab. Not Available [facility] ([facility]) [address] [place], [address], 05/05/2025 08:12:38 05/04/2005/05/2025 CBC WITH DIFFE RENTI AL/PL ATELE T immature grans (abs) 0.0 x10e3 /uL 0.0-0. 1 Not Available [facility] ([facility]) [address] [place], [address], 05/05/2025 08:12:38 05/04/2005/05/2025 CBC WITH DIFFE RENTI AL/PL ATELE T NRBC MANIFEST/ORDER [employer]GAN[employer]ER [employer] ORDERS Not Available [facility] ([facility]) [address] [place], [address], 05/05/2025 08:12:38 05/04/2005/05/2025 CBC WITH DIFFE RENTI AL/PL ATELE T hematology comments: MANIFEST/ORDER [employer]GAN[employer]ER PR[employer] ORDERS Not Available [facility] ([facility]) [address] [place], [address], 05/05/2025 08:12:38 05/04/2005/05/2025 COMP. METAB OLIC PANEL (14) glucose 101 mg/dL 70-99 above high normal Not Available [facility] ([facility]) [address] [place], [address], 05/05/2025 08:12:39 05/04/20 25 05/05/2025 COMP. METAB OLIC PANEL (14) BUN 8 mg/dL 6-20 normal Not Available [facility] ([facility]) [address] [facility] [place], [address], 05/05/2025 08:12:39 05/04/2005/05/2025 COMP. METAB OLIC PANEL (14) creatinine 0.88 mg/dL 0.57-1 .00 normal Not Available [facility] ([facility]) [address] [facility] [place], [address], 05/05/2025 08:12:39 05/04/2005/05/2025 COMP. METAB OLIC PANEL (14) eGFR 88 mL/mi n/1.7 3 >59 normal Not Available [facility] ([facility]) [address] [facility] [place], [address], 05/05/2025 08:12:39 05/04/2005/05/2025 COMP. METAB OLIC PANEL (14) BUN/creatini ne ratio 9 9-23 normal Not Available [facility] ([facility]) [address] [facility] [place], [address], 05/05/2025 08:12:39 05/04/2005/05/2025 COMP. METAB OLIC PANEL (14) sodium 140 mmol/ L 134-14 4 normal Not Available [facility] ([facility]) [address] [facility] [place], [address], 05/05/2025 08:12:39 05/04/2005/05/2025 COMP. METAB OLIC PANEL (14) potassium 4.3 mmol/ L 3.5-5. 2 normal Not Available [facility] ([facility]) [address] [facility] [place], [address], 05/05/2025 08:12:39 05/04/2005/05/2025 COMP. METAB OLIC PANEL (14) chloride 103 mmol/ L 96-106 normal Not Available [facility] ([facility]) [address] [facility] [place], [address], 05/05/2025 08:12:39 05/04/2005/05/2025 COMP. METAB OLIC PANEL (14) carbon dioxide, total 21 mmol/ L 20-29 normal Not Available [facility] ([facility]) [address] [facility], [place], [address], 05/05/2025 08:12:39 05/04/2005/05/2025 COMP. METAB OLIC PANEL (14) calcium 8.9 mg/dL 8.7-10 .2 normal Not Available [facility] ([facility]) [address] [facility] [place], [address], 05/05/2025 08:12:39 05/04/2005/05/2025 COMP. METAB OLIC PANEL (14) protein, total 6.4 g/dL 6.0-8. 5 normal Not Available [facility] ([facility]) [address] [facility] [place], [address], 05/05/2025 08:12:39 05/04/2005/05/2025 COMP. METAB OLIC PANEL (14) albumin 4.1 g/dL 3.9-4. 9 normal Not Available [facility] ([facility]) [address] [facility] [place], [address], 05/05/2025 08:12:39 05/04/2005/05/2025 COMP. METAB OLIC PANEL (14) globulin, total 2.3 g/dL 1.5-4. 5 Not Available [facility] ([facility]) [address] [facility] [place], [address], 05/05/2025 08:12:39 05/04/2005/05/2025 COMP. METAB OLIC PANEL (14) bilirubin, total 0.5 mg/dL 0.0-1. 2 normal Not Available [facility] ([facility]) [address] [place], [address], 05/05/2025 08:12:39 05/04/20 25 05/05/2025 COMP. METAB OLIC PANEL (14) alkaline phosphatase 86 IU/L 44-121 normal Not Available [facility] [address] [place], [address], 05/05/2025 08:12:39 05/04/20 25 05/05/2025 COMP. METAB OLIC PANEL (14) AST (SGOT) 14 IU/L 0-40 normal Not Available [facility] ([facility]) [address] [place], [address], 05/05/2025 08:12:39 05/04/20 25 05/05/2025 COMP. METAB OLIC PANEL (14) ALT (SGPT) 13 IU/L 0-32 normal Not Available [facility] ([facility]) [address] [place], [address], 05/05/2025 08:12:39 05/04/20 25 05/05/2025 LIPID PANEL cholesterol, total 182 mg/dL 100-19 9 normal Not Available [facility] ([facility]) [address] [place], [address], 05/05/2025 08:12:40 05/04/20 25 05/05/2025 LIPID PANEL triglyceride s 206 mg/dL 0-149 above high normal Not Available [facility] ([facility]) [address] [place], [address], 05/05/2025 08:12:40 05/04/20 25 05/05/2025 LIPID PANEL HDL cholesterol 37 mg/dL >39 below low normal Not Available [facility] ([facility]) [address] [place], [address], 05/05/2025 08:12:40 05/04/2005/05/2025 LIPID PANEL VLDL cholesterol wesley 36 mg/dL 5-40 Not Available [facility]) [address] [place], [address], 05/05/2025 08:12:40 05/04/2005/05/2025 LIPID PANEL LDL chol calc ([facility]) 109 mg/dL 0-99 above high normal Not Available [facility] ([facility]) [address] [place], [address], 05/05/2025 08:12:40 05/04/2005/05/2025 LIPID PANEL LDL calc comment: MANIFEST/ORDER ORGANIZER PRINT ORDERS Not Available [facility] ([facility]) [address] [place], [address], 05/05/2025 08:12:40 05/04/2005/05/2025 TSH TSH 1.810 uIU/m L 0.450- 4.500 normal Not Available [facility] ([facility]) [address] [place], [address], 05/05/2025 08:12:40 05/04/2005/05/2025 VITAM IN D, 25-HY DROXY vitamin D, 25-hydroxy 25.8 NG/mL 30.0-1 00.0 below low normal Vitam [...] IOM (Inst itute of Medic ine). 2010. Dieta ry refer ence migdalia es for calci um and DBasim ledesma [place]: The [employer] . 2. Amanda eric MF, Jose mohan NC, Dev off-F errar i RIVAS, et al. Evalu ation , treat ment, and preve ntion of vitam in D defic iency : an Endoc rine Socie ty clini wesley pract ice guide line. JCEM. 2010; 96(7) :1911 -30. Not Available [facility] ([facility]) [address] [facility], [place], [address], 05/05/2025 08:12:41 05/21/2005/23/2025 URINE CULTU RE, ROUTI NE urine culture, routine Final report abnormal Not Available [facility] ([facility]) [address] [facility], [place], [address], 05/23/2025 23:07:14 05/21/20 25 05/23/2025 URINE CULTU RE, ROUTI NE result 1 Escher ichia coli abnormal Cefaz enrique with an JOCELIN <=16 predi cts susce ptibi lity to the oral agent s cefac iza, cefdi elzbieta, cefpo doxim e, cefpr ozil, cefur oxime , cepha lexin , and lorac arbef when used for thera py of uncom plica viviana urina ry tract infec tions due to E. coli, Klebs iella pneum oniae , and Prote us mirab ilis. Great er than 100,0 00 colon y formi ng units per mL Not Available [facility] ([facility]) [address] [facility], [place], [address], 05/23/2025 23:07:14 05/21/20 25 05/23/2025 URINE CULTU RE, ROUTI NE antimicrobia l susceptibili ty Commen t S = Susce ptibl e; I = Inter media te; R = Resis tant P = Posit christianne; N = Negat christianne MICS are expre ssed in micro grams per mL Antib iotic RSLT# 1 RSLT# 2 RSLT# 3 RSLT# 4 Amoxi cilli n/Cla vulan ic Acid S Ampic illin R Cefaz enrique S Cefep tian S Cefox itin S Cefpo doxim e S Ceftr iaxon e S Cipro floxa neha S Ertap enem S Genta micin S Levof loxac in S Merop enem S Nitro furan toin S Piper acill in/Ta zobac morfin S Tetra cycli ne S Tobra mycin S Trime thopr im/Mullins lfa S Not Available [facility] ([facility]) [address], [place], [address], 05/23/2025 23:07:14 05/21/2005/21/2025 urina lysis , dipst ick Leukocytes Large Not Available [facility] [address] [place] [address], [place], [address], 05/21/2025 08:49:55 05/21/2005/21/2025 urina lysis , dipst ick Nitrite negati ve Not Available [facility] [address] [place] [address], [address], 05/21/2025 08:49:55 05/21/2005/21/2025 urina lysis , dipst ick Urobilinogen .2 Not Available [facility] [address] [place] [address], [place], [address], 05/21/2025 08:49:55 05/21/2005/21/2025 urina lysis , dipst ick Protein 300 Not Available [address], [address], 05/21/2025 08:49:55 05/21/2005/21/2025 urina lysis , dipst ick pH 6.5 Not Available [address], [address], 05/21/2025 08:49:55 05/21/20 25 05/21/2025 urina lysis , dipst ick Blood Modera te Not Available [address], [place], [address], 05/21/2025 08:49:55 05/21/2005/21/2025 urina lysis , dipst ick Specific [place] 1.025 Not Available [address], [place], [address], 05/21/2025 08:49:55 05/21/2005/21/2025 urina lysis , dipst ick Ketone Negati ve Not Available [address], [address], 05/21/2025 08:49:55 05/21/2005/21/2025 urina lysis , dipst ick Bilirubin Negati ve Not Available [address], [place], [address], 05/21/2025 08:49:55 05/21/2005/21/2025 urina lysis , dipst ick Glucose 100 Not Available [address], [address], 05/21/2025 08:49:55 05/21/2005/21/2025 urina lysis , dipst ick Appearance Cloudy Not Available [address], [address], 05/21/2025 08:49:55 05/21/2005/21/2025 urina lysis , dipst ick Color Yellow Not Available [address], [address], 05/21/2025 08:49:55 08/06/2008/07/2025 FE+TI BC+FE R iron bind.cap.(TI BC) 334 ug/dL 250-45 0 normal Not Available [facility] ([facility]) [address] [facility], [place], [address], 08/07/2025 12:08:23 08/06/2008/07/2025 FE+TI BC+FE R UIBC 286 ug/dL 131-42 5 normal Not Available [facility] ([facility]) [address] [place], [address], 08/07/2025 12:08:23 08/06/2008/07/2025 FE+TI BC+FE R iron 48 ug/dL 27-159 normal Not Available [facility] ([facility]) [address] [place], [address], 08/07/2025 12:08:23 08/06/2008/07/2025 FE+TI BC+FE R iron saturation 14 % 15-55 below low normal Not Available [facility] ([facility]) [address] [place], [address], 08/07/2025 12:08:23 08/06/2008/07/2025 FE+TI BC+FE R ferritin 73 NG/mL 15-150 normal Not Available [facility] ([facility]) [address] [place], [address], 08/07/2025 12:08:23 08/06/2008/07/2025 CBC WITH DIFFE RENTI AL/PL ATELE T WBC 7.4 x10e3 /uL 3.4-10 .8 normal Not Available [facility] ([facility]) [address] [place], [address], 08/07/2025 12:08:23 08/06/20 25 08/07/2025 CBC WITH DIFFE RENTI AL/PL ATELE T RBC 4.66 x10e6 /uL 3.77-5 .28 normal Not Available [facility] ([facility]) [address] [place], [address], 08/07/2025 12:08:23 08/06/2008/07/2025 CBC WITH DIFFE RENTI AL/PL ATELE T hemoglobin 13.3 g/dL 11.1-1 5.9 normal Not Available [facility] ([facility]) [address] [place], [address], 08/07/2025 12:08:23 08/06/2008/07/2025 CBC WITH DIFFE RENTI AL/PL ATELE T hematocrit 40.7 % 34.0-4 6.6 normal Not Available [facility] ([facility]) [address] [place], [address], 08/07/2025 12:08:23 08/06/2008/07/2025 CBC WITH DIFFE RENTI AL/PL ATELE T MCV 87 fL 79-97 normal Not Available [facility] ([facility]) [address] [place], [address], 08/07/2025 12:08:23 08/06/20 25 08/07/2025 CBC WITH DIFFE RENTI AL/PL ATELE T MCH 28.5 pg 26.6-3 3.0 normal Not Available [facility] ([facility]) [address] [place], [address], 08/07/2025 12:08:23 08/06/20 25 08/07/2025 CBC WITH DIFFE RENTI AL/PL ATELE T MCHC 32.7 g/dL 31.5-3 5.7 normal Not Available [facility] ([facility]) [address] [place], [address], 08/07/2025 12:08:23 10/08/07/2025 CBC WITH DIFFE RENTI AL/PL ATELE T RDW 15.7 % 11.7-1 5.4 above high normal Not Available [facility] ([facility]) [address] [facility], [place], [address], 08/07/2025 12:08:23 08/06/20 25 08/07/2025 CBC WITH DIFFE RENTI AL/PL ATELE T platelets 392 x10e3 /uL 150-45 0 normal Not Available [facility] ([facility]) [address] [facility], [place], [address], 08/07/2025 12:08:23 08/06/2008/07/2025 CBC WITH DIFFE RENTI AL/PL ATELE T neutrophils 73 % not estab. normal Not Available [facility] ([facility]) [address] [facility], [place], [address], 08/07/2025 12:08:23 08/06/20 25 08/07/2025 CBC WITH DIFFE RENTI AL/PL ATELE T lymphs 20 % not estab. normal Not Available [facility] ([facility]) [address] [facility], [place], [address], 08/07/2025 12:08:23 08/06/20 25 08/07/2025 CBC WITH DIFFE RENTI AL/PL ATELE T monocytes 4 % not estab. normal Not Available [facility] ([facility]) [address] [facility], [place], [address], 08/07/2025 12:08:23 08/06/20 25 08/07/2025 CBC WITH DIFFE RENTI AL/PL ATELE T eos 1 % not estab. normal Not Available [facility] ([facility]) [address] [facility], [place], [address], 08/07/2025 12:08:23 08/06/20 25 08/07/2025 CBC WITH DIFFE RENTI AL/PL ATELE T basos 1 % not estab. normal Not Available [facility] ([facility]) [address] [facility], [place], [address], 08/07/2025 12:08:23 08/06/20 25 08/07/2025 CBC WITH DIFFE RENTI AL/PL ATELE T immature cells MANIFEST/ORDER ORGANIZER PRINT ORDERS Not Available [facility] ([facility]) [address] [facility], [place], [address], 08/07/2025 12:08:23 08/06/2008/07/2025 CBC WITH DIFFE RENTI AL/PL ATELE T neutrophils (absolute) 5.5 x10e3 /uL 1.4-7. 0 normal Not Available [facility] ([facility]) [address] [facility], [place], [address], 08/07/2025 12:08:23 08/06/20 25 08/07/2025 CBC WITH DIFFE RENTI AL/PL ATELE T lymphs (absolute) 1.5 x10e3 /uL 0.7-3. 1 normal Not Available [facility] ([facility]) [address] [place], [address], 08/07/2025 12:08:23 08/06/20 25 08/07/2025 CBC WITH DIFFE RENTI AL/PL ATELE T monocytes(ab solute) 0.3 x10e3 /uL 0.1-0. 9 normal Not Available [facility] ([facility]) [address] [place], [address], 08/07/2025 12:08:23 08/06/20 25 08/07/2025 CBC WITH DIFFE RENTI AL/PL ATELE T eos (absolute) 0.1 x10e3 /uL 0.0-0. 4 normal Not Available [facility] ([facility]) [address] [facility], [place], [address], 08/07/2025 12:08:23 08/06/20 25 08/07/2025 CBC WITH DIFFE RENTI AL/PL ATELE T baso (absolute) 0.0 x10e3 /uL 0.0-0. 2 normal Not Available [facility] ([facility]) [address] [facility], [place], [address], 08/07/2025 12:08:23 08/06/20 25 08/07/2025 CBC WITH DIFFE RENTI AL/PL ATELE T immature granulocytes 1 % not estab. Not Available [facility] ([facility]) [address] [facility], [place], [address], 08/07/2025 12:08:23 08/06/20 25 08/07/2025 CBC WITH DIFFE RENTI AL/PL ATELE T immature grans (abs) 0.1 x10e3 /uL 0.0-0. 1 Not Available [facility] ([facility]) [address] [facility], [place], [address], 08/07/2025 12:08:23 08/06/20 25 08/07/2025 CBC WITH DIFFE RENTI AL/PL ATELE T NRBC MANIFEST/ORDER ORGANIZER PRINT ORDERS Not Available [facility] ([facility]) [address] [facility], [place], [address], 08/07/2025 12:08:23 08/06/20 25 08/07/2025 CBC WITH DIFFE RENTI AL/PL ATELE T hematology comments: MANIFEST/ORDER ORGANIZER PRINT ORDERS Not Available [facility] ([facility]) [address] [place], [address], 08/07/2025 12:08:23 08/06/20 25 08/07/2025 VITAM IN D, 25-HY DROXY vitamin D, 25-hydroxy 21.4 NG/mL 30.0-1 00.0 below low normal Vitam in D defic iency has been defin ed by the Insti tutjesica of Medic ine and an Endoc rine [...] IOM (Inst itute of Medic ine). 2010. Dieta ry refer ence intak es for calci um and D. Marie ledesma DC: [facility] . 2. Amanda k MF, Binkl ey [place], [place] off-F errar i RIVAS, et al. Evalu ation , treat ment, and preve ntion of vitam in D defic iency : an Endoc rine Socie ty clini wesley pract ice guide line. JCEM. 2010; 96(7) :1911 -30. Not Available [facility] ([facility]) [address] [facility], [place], [address], 08/07/2025 12:08:24 06/05/20 25 06/01/2025 US, trans franklin al No observ ation record ed. [email or web address] [facility] [address], [place], [address], 06/05/2025 08:39:34 Result Notes None recorded. Problems Name Problem SNOMED Code Status Onset Date Resolution Date Notes Provider Name and Address Organization Details Recorded Time Vitamin D deficiency 72022537 Active 025 ALICE Vick [address] [place] [address], [address], [employer] 5 12:57:22 Iron deficiency anemia 70591977 Active 025 ALCIE Vick [address] [place] [address], [address], [place] [employer] 5 08:48:16 Mild major depression, single episode 25139360 Active 025 ALICE Vick [address] [place] [address], [address], [employer] 5 09:16:14 Acute urinary tract infection 502472148 Active 025 ALICE Vick [address] [place] [address], [address], [employer] 09:11:50 Problem Notes None recorded. Procedures Surgical History Date Name Laterality Status Provider Name and Address Organization Details Recorded Time Breast Surgery completed [employer] 02/02/2025 08:19:19 Caesarean Section completed [employer] 02/02/2025 08:19:19 Caesarean Section completed [employer] 02/02/2025 08:24:08 Tubal Ligation completed [employer] 02/02/2025 08:25:11 Imaging Results None recorded. Procedure Notes None recorded. Medical Equipment None Reported. Allergies Allergen ID Allergen Name Allergen Category Reaction Reaction Severity Criticality Documentation Date Start Date Code Code System Note Provider Name and Address Organization Details Recorded Time 78470 Ultram medicatio n Not available Not available Not available 02/02/2025 06947 6 RxNorm [facility] [employer] 08:22:40 Medications Name Sig Start Date [...] Available Not Available Vitals Date Recorded Body weight Body mass index (BMI) Body height Body temperature Heart rate Oxygen saturation Oxygen saturation in Arterial blood by Pulse oximetry Systolic And Diastolic Provider Name and Address Organization Details Last Updated DateTime 5 479732. 03 g 39.7 kg/m2 170.18 cm 98.8 [degF] 74 /min 96 % 96 % 120/84 mm[Hg] [employer] 5 08:29:44 Date Recorded Body height Body mass index (BMI) Body weight Oxygen saturation Oxygen saturation in Arterial blood by Pulse oximetry Heart rate Body temperature Systolic And Diastolic Provider Name and Address Organization Details Last Updated DateTime 5 170.18 cm 39.9 kg/m2 002220. 62 g 98 % 98 % 78 /min 98.7 [degF] 118/84 mm[Hg] [employer] 5 08:13:37 Date Recorded Body height Body mass index (BMI) Body weight Oxygen saturation Oxygen saturation in Arterial blood by Pulse oximetry Heart rate Body temperature Systolic And Diastolic Systolic And Diastolic Provider Name and Address Organization Details Last Updated DateTime 5 170.18 cm 40.3 kg/m2 775972. 24 g 98 % 98 % 102 /min 100.1 [degF] 138/94 mm[Hg] 130/90 mm[Hg] [employer] 5 08:53:13 Date Recorded Body height Body mass index (BMI) Body weight Oxygen saturation Oxygen saturation in Arterial blood by Pulse oximetry Heart rate Body temperature Systolic And Diastolic Provider Name and Address Organization Details Last Updated DateTime 5 170.18 cm 40.3 kg/m2 812926. 24 g 96 % 96 % 68 /min 98.3 [degF] 130/88 mm[Hg] [employer] 5 08:56:43 Date Recorded Body height Body mass index (BMI) Body weight Oxygen saturation Oxygen saturation in Arterial blood by Pulse oximetry Heart rate Body temperature Systolic And Diastolic Provider Name and Address Organization Details Last Updated DateTime 5 170.18 cm 41.3 kg/m2 910500. 67 g 97 % 97 % 80 /min 98.6 [degF] 126/86 mm[Hg] [employer] 5 08:18:04 Social History Question Answer Notes LastModified by Organization Details LastModified Time Tobacco Smoking Status Former Smoker [employer] 02/02/2025 08:19:19 Do You Have An Advance [...] Information not available 08/06/2025 What Type Of Mission Commander Do You Use? None Information not available [...] Or The Highest Degree You Have Received? LC43789-4 Information not available 02/02/2025 Who Is Your [...] Do You Have A Medical Power Of Clerical Order Filler? No Information not available 02/02/2025 What Was [...] anxious, or unable to sleep at night)? [id number] Information not available 02/02/2025 Do you have [...] available 2024 08:19:18 Medical History Condition Response Hospitalizations N Emergency room visit since last appointm ent. N Depression Y Anxiety Disorder Y Obesity Y Acid Reflux (GERD) Y Hypertension Y Gynecological History Statement/Question Response Abnormal Pap [...] ICD10 Code Diagnosis IMO Codes Diagnosis Note [id number] ALICE Vick [address] [address] 02/02/2025 08:15:12 02/02/2025 09:01:56 Menorrhagia 600722453 N92.0 Hyperlipid emia screening 253725779 Z13.220 Thyroid di sorder screening 361960489 Z13.29 Syncope 970885207 R55 HIV screening 119000009 Z11.4 Hepatitis C screening 41 1211888 Z11.59 [id number] ALICE Vick [address] [address] 05/04/2025 08:00:39 05/04/2025 08:28:25 Iron deficiency anemia 31495429 D50.9 73847507 Vitamin D deficiency 347 69402 E55.9 90500 Thyroid di sorder screening 587624623 Z13.29 005553 Hyperlipid emia screening 260033372 Z13.220 878062 0745471 ALICE Vick [address] [address] 05/21/2025 08:39:24 05/21/2025 09:21:46 Urgent desire to urinate 38058373 R39.15 291944 Leukocytes in urine 2757 27115 R82.998 658371 Acute urin yari tract infection 305926884 N39.0 732382 Concern for pyelonephr itis - patient advised if not rapidly improving and especially if worsening, go to ER for IV antibiotic s Iron defic iency anemia 34514025 D50.9 27189405 Venofer infusion pending [id number] ALICE Vick [facility] [address] [place] [address] 05/24/2025 08:43:17 05/24/2025 09:10:40 Acute urinary tract infection 818800350 N39.0 931623 Urine grew E coli, susceptibl e to Levaquin - complete antibiotic s Iron defic iency anemia 87937960 D50.9 31539874 Venofer infusion pending [id number] ALICE Vick [facility] [address] [place] [address] 08/06/2025 08:06:10 08/06/2025 08:42:01 Vitamin D deficiency 96148379 E55.9 036619 Iron defic iency anemia 42872712 D50.9 84416760 Health Concerns Section Related Observation LastModified by Organization Detai ls LastModified Time None Recorded Concern Status LastModified by Organization Details LastModified Time None Recorded Advance Directives Directive N: Payers Insurance Date Sequence Insurance Name Policy Number Policy Ohara Covered Member ID Ohara Member ID Guarantor Name 08/03/2025 1 [place] [id number] Keyanna Biggs [id number] Keyanna Biggs Notes Date Note Type Note Provider Name and Address Organization Details Recorded Time 02/02/2025 text/html ROS as noted in the HPI Patient presents to establish care.Needs biometric screening for work.Has h/o menometrorrhagia, iron deficiency anemia. ALICE Vick [address] [place] [address], [address], [employer] 02/05/2025 13:00:10 05/04/2025 text/html ROS as noted in the HPI Patient presents for followup. Has been taking oral iron but is still tired and fatigued. 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 ALICE Vick [address] [place] [address], [address], [employer] 05/04/2025 13:04:42 05/21/2025 text/html ROS as noted in the HPI Patient has had dysuria, small volumes of urine X 1 week. Has had swelling in her feet. Now has low grade fever, nausea. No vomiting. Some right flank pain. Patient also has iron deficiency anemia. Venofer infusion pending pharmacy approval. ALICE Vick [address] [place], [address], [employer] 05/21/2025 10:06:58 05/24/2025 text/html ROS as noted in the HPI Patient presents to follow up on UTI. There was concern for pyelo given flank pain, fever. Seen in ER and got IV fluids, PO Cefdinir in addition to Levaquin. Feeling much better today. Has not heard from [facility] re: Venofer infusion. ALICE Vick [address] [place], [address], [employer] 05/24/2025 15:08:21 08/06/2025 text/html ROS as noted in the HPI Patient presents for followup. History of iron deficiency anemia. Has last infusion next week. Unable to get uterine ablation due to scar adherence to bladder so is scheduled for a hysterectomy in September. Otherwise states that she is doing well ALICE Vick [address] [place], [address], [employer] 08/06/2025 14:13:11 OBGyn Episode No OBEpisode recorded.
[2025-08-13 09:50] LABS: Hematocrit 39.0 % (37.0-47.0); Hemoglobin 12.6 g/dL (12.2-16.2); Immature Granulocytes % 0.8 %; Mean Corpuscular HGB Conc 32.3 g/dL (31.8-35.4); Mean Corpuscular Hemoglobin 27.8 pg (27.0-31.2); Mean Corpuscular Volume 85.9 fl (81-99); Nucleated Red Blood Cells % 0 %; Platelet Count 349 K/mm3 (142-424); Red Blood Count 4.54 M/mm3 (4.20-5.40); Red Cell Distribution Width-SD 47.6 fL; White Blood Count 7.9 K/mm3 (4.8-10.8)
[2025-08-13 10:31] LABS: Alanine Aminotransferase 19 U/L (12-78); Albumin Level 4.0 g/dl (3.5-5.0); Anion Gap 9.3 mEq/L (5-15); Aspartate Amino Transferase 19 U/L (14-36); Bilirubin,Unconjugated 0.4 mg/dL (0.0-1.1); Blood Urea Nitrogen 7 mg/dl (7-17); Calcium 8.7 mg/dl (8.4-10.2); Carbon Dioxide 29 mmol/L (22.0-30.0); Chloride 101 mmol/L (98-107); Cholesterol 216 mg/dl (140-200); Creatinine,Serum 0.80 mg/dl (0.52-1.04); Estimated Glomerular Filt Rate 82 ml/min (>60); GFR (African American) 99 ML/MIN (>60); Glucose 103 mg/dl (74-100); HDL Cholesterol 50 mg/dl (40-60); Magnesium 2.0 mg/dl (1.6-2.3); Potassium 3.3 mmoL/L (3.5-5.1); Sodium 136 mmol/L (136-145); Total Protein,Serum 7.0 g/dl (6.3-8.2); Triglycerides 151 mg/dl (30-150)
[2025-08-13 10:46] LABS: Free T4 (Free Thyroxine) 1.15 ng/dl (0.78-2.19)
[2025-08-13 10:51] LABS: Hemoglobin A1C 5.1 % (4.0-6.0)
[2025-08-13 11:01] LABS: Thyroid Stimulating Hormone 1.93 uIU/mL (0.465-4.68)
[2025-08-13 12:04] LABS: Alkaline Phosphatase 82 U/L (38-126); Bilirubin,Direct 0.2 mg/dl (0.0-0.4); Bilirubin,Indirect 0.4 mg/dL (0.0-0.9); Bilirubin,Total 0.6 mg/dl (0.2-1.3)
== END 2025-08-13 23:59 | disposition home or self-care (01) ==
LOC: LAB 09:00
PROVIDERS: PCP Physician Assistant; Visit Provider Nurse Practitioner
DX: Z00.00 Encounter for general adult medical examination without abnormal findings (principal); I10 Essential (primary) hypertension; R73.09 Other abnormal glucose
CPT/HCPCS: 36415; 80048; 80061; 80076; 83036; 83735; 84439; 84443; 85025

== ENCOUNTER 2025-09-05 10:54 | Outpatient (CLI) | payer BC, SELFPAY ==
[2025-09-05] VITALS (14 sets, daily range): BP systolic 130–143; BP diastolic 71–87; PULSE 64–81; RESP 15–16; O2SAT 98–100; BMI 41.5; BMI 34.8
--- OUTSIDE RECORDS SUMMARY | 2025-09-05 10:58 | XMS_ITS | Encounter Summary ---
Author Organization [employer] ([place], [place], [place], [place], [place]) Address [address] [place] [address] Care Team Providers Care Plastics Fabricator Name Role Phone Unavailable Primary Care Provider Unavailabl e Encounter Details Date Type Department Care Team (Late st Contact Info) Description 12/29/2020 Transcribed Document [facility] Family Medicine [facility] [place] [address] ProviderZahira MD [address] [place], [place] [id number] Social History Tobacco Use Types Packs/Day Years [...]
--- OUTSIDE RECORDS SUMMARY | 2025-09-05 10:58 | XMS_ITS | Clinical Summary ---
Author Organization [facility] Address [address] [place] [address] Care Team Providers Care Brand Marketing Intern Name Role Phone Yaw Rubio MD Primary Care Provider [phone] Allergies Active Allergy Reactions Criticality Noted Date [...] to complete this topic Insurance SATYA BROOKS [id number] [facility] [employer] Care Teams Brand Marketing Intern Relationship Specialty Start Date End Date Yaw Rubio MD [address] [facility] [address] [facility] [address] [place] [address] PCP - General Family Medicine 02/15/17
--- OUTSIDE RECORDS SUMMARY | 2025-09-05 10:58 | XMS_ITS | Encounter Summary ---
Author Organization [employer] ([place], [place], [place], [place], [place]) Address [address] [place] [address] Care Team Providers Care Sheeter Helper Name Role Phone Unavailable Primary Care Provider Unavailabl e Encounter Details Date Type Department Care Team (Late st Contact Info) Description 12/29/2020 Transcribed Document [facility] [place] Count includes the [facility] [address] ProviderZahira MD [address] [place] [address] Social History Tobacco Use Types [...] 5:23 PM CDT Electronically signed by Maurisio [facility] Conversion Major Case Detective Cerner at 01/26/2023 1:24 PM CDT documented in this encounter Plan of Treatment Not on file documented as of this encounter Visit Diagnoses Not on filedocumented in this encounter
--- OUTSIDE RECORDS SUMMARY | 2025-09-05 10:58 | XMS_ITS | Encounter Summary ---
Author Organization [employer] ([place], [place], [place], [place], [place]) Address [address] [place] [address] Care Team Providers Care Line Haul Driver Name Role Phone Unavailable Primary Care Provider Unavailabl e Encounter Details Date Type Department Care Team (Late st Contact Info) Description 12/29/2020 Transcribed Document [facility] [place] [facility] [place] [address] ProviderZahira MD [address] [place] [address] Social History Tobacco Use Types [...] EDT Height Source Stated Height Entry Format Kerri Height/Length, IRISH (ft) 5 ft Height/Length IRISH 7 Inch CLINICALHEIGHT 170.18 cm [place] Body Weight 61.16 kg Weight Source, ED Critical estimated dosing weight Weight Entry Format Kerri Weight Venezuelan lb 250 lb CLINICALWEIGHT 113.64 kg Body Surface Area (BSA) 2.23 m2 Body Mass Index 39.2 kg/m2 HI . Oxygen Saturation 12/29/2020 13:42 EDT Oxygen Saturation 99 % . General: Alert, no acute distress. Brickeys coma scale: Total score: Total score: 15. [...] rhythm, No ST changes, no ectopy, normal KS & QRS intervals, EP Interp. Results review: [...] 14.6 % LOW Lymph # 1.51 x10(3)/uL Cedar % 5.3 % Cedar # 0.55 K/uL Eos % 0.8 % [...] Follow up with: ; Find a Doc ([facility]) Within 2 to 3 days. Counseled: [...]
--- OUTSIDE RECORDS SUMMARY | 2025-09-05 10:59 | XMS_ITS | Encounter Summary ---
Author Organization [facility] ([place], [place], [place], [place], [place]) Address [address] [facility] [place] [address] Care Team Providers Care Egg Gatherer Name Role Phone Unavailable Primary Care Provider Unavailabl e Encounter Details Date Type Department Care Team (Late st Contact Info) Description 12/29/2020 Transcribed Document [facility] [place] [facility] [place] [address] ProviderZahira MD [address] [place] [address] Social History Tobacco Use Types [...] Communication Barrier : None Primary Language : Northern Irish Any Spiritual/Cultural Needs or Requests : No [...] exceptions Gastrointestinal Symptoms : Nausea, Vomiting Hai Yeepz RN - 12/29/2020 14:27 EDT Genitourinary Assessment, ED Genitourinary Assessment WDL : Hai Simpson RN - 12/29/2020 14:27 EDT Neurologic ASMT, ED Neurologic Assessment WDL : Hai Simpson RN - 12/29/2020 14:27 EDT documented in this encounter Plan of Treatment Not on file documented as of this encounter Visit Diagnoses Not on filedocumented in this encounter
--- OUTSIDE RECORDS SUMMARY | 2025-09-05 10:59 | XMS_ITS | Encounter Summary ---
Author Organization [employer] ([place], [place], [place], [place], [place]) Address [address] [place] [address] Care Team Providers Care Hand Booked Folder And Stitcher Name Role Phone Unavailable Primary Care Provider Unavailabl e Encounter Details Date Type Department Care Team (Late st Contact Info) Description 12/29/2020 Transcribed Document [facility] [place] [facility] [place] [address] ProviderZahira MD [address] [place] [address] Social History Tobacco Use Types [...] : 2 - Emergent Tracking Group : [facility] ED KAYLYN HUNG RN - 12/29/2020 13:42 [...] 12/29/2020 13:47:35 EDT) Problems(Active) Anxiety (SNOMED CT :05139015 ) Name of Problem: Anxiety ; Recorder: KAYLYN HUNG RN; Confirmation: Confirmed ; Classification: Medical ; Code: [id number] ; Contributor System: Bango ; Last Updated: 12/29/2020 13:46 EDT ; Life Cycle Date: 12/29/2020 ; Life Cycle Status: Active ; Vocabulary: SNOMED CT Depression (SNOMED CT :54426092 ) Name of Problem: Depression ; Recorder: KAYLYN HUNG RN; Confirmation: Confirmed ; Classification: Medical ; Code: [id number] ; Contributor System: PowerChart ; Last Updated: 12/29/2020 13:46 EDT ; Life Cycle Date: 12/29/2020 ; Life Cycle Status: Active ; Vocabulary: SNOMED CT Diagnoses(Active) Medication overdose Date: 12/29/2020 ; Diagnosis Type: Reason For Visit ; Confirmation: Complaint of ; Clinical Dx: Medication overdose ; Classification: Medical ; Clinical Service: Emergency medicine ; Code: PNED ; Probability: 0 ; Diagnosis Code: [id number] ED Height and Weight Height Source : Stated Height Entry Format : Cross Height, Feet : 5 ft(Converted to: 152 cm, 60 Inch) Height, Inches : 7 Inch(Converted to: 0 ft 7 Inch, 17.78 cm) Clinical Height : 170.18 cm Weight Source, ED : Critical estimated dosing weight Weight Entry Format : Cross Weight, Pounds : 250 lb Clinical Dosing Weight : 113.64 kg Body Surface Area (BSA) : 2.23 m2 Body Mass Index : 39.2 kg/m2 (HI) [place] Body Weight (IBW) : 61.16 kg KAYLYN HUNG RN - 12/29/2020 13:42 EDT documented in this encounter Plan of Treatment Not on file documented as of this encounter Visit Diagnoses Not on filedocumented in this encounter
--- OUTSIDE RECORDS SUMMARY | 2025-09-05 10:59 | XMS_ITS | Clinical Summary ---
Author Organization [employer] ([place], [place], [place], [place], [place]) Address [address] [place] [address] Care Team Providers Care Telesales Consultant Name Role Phone Unavailable Primary Care [...]
--- OUTSIDE RECORDS SUMMARY | 2025-09-05 10:59 | XMS_ITS | Encounter Summary ---
Author Organization [employer] ([place], [place], [place], [place], [place]) Address [address] [facility] [address] [facility] [address] Care Team Providers Care Jacquard Lace Weaver Name Role Phone Unavailable Primary Care Provider Unavailabl e Encounter Details Date Type Department Care Team (Late st Contact Info) Description 12/29/2020 Transcribed Document [facility] Family Medicine [facility] [place] [address] ProviderZahira MD [address] [place], [place] [id number] Social History Tobacco Use Types Packs/Day Years [...] Historical ProviderMD - 12/29/2020 1:37 PM CDT [place] Suicide Severity Rating Scale (C-SSRS) Entered On: 12/29/2020 14:29 EDT Performed On: 12/29/2020 14:27 EDT by Hai Yepez RN [place] Suicide Severity Rating Scale (C-SSRS) CSSRS Past [...]
--- OUTSIDE RECORDS SUMMARY | 2025-09-05 10:59 | XMS_ITS | Referral Summary ---
Author Organization [employer] ([place], [place], [place], [place], [place]) Address [address] [facility] [place] [address] Care Team Providers Care Senior Medical Technologist Name Role Phone Unavailable Primary Care Provider [...]
--- OUTSIDE RECORDS SUMMARY | 2025-09-05 10:59 | XMS_ITS | Encounter Summary ---
Author Organization [employer] ([place], [place], [place], [place], [place]) Address [address] [facility] [facility] [place] [address] Care Team Providers Care Sap Grc Security Name Role Phone Unavailable Primary Care Provider Unavailabl e Encounter Details Date Type Department Care Team (Late st Contact Info) Description 12/29/[address] [facility] [place] Family Medicine [facility] [place] [address] ProviderZahira MD [address] [place] [address] Social History Tobacco Use Types [...] Watts MD - 12/29/2020 5:28 PM CDT [facility] [place] [address] JOSE DE JESUSANIL CHRISTINE :1990 Visit Time:12/29/2020 Your Visit Summary [...] 3 days Where: [place] [address]- [phone] Business (1) Allergies Ultram (gallbladder problems) Immunizations [...] range between ( 0.0 and 7.0 ) [place] #: 0.55 K/uL -- Normal range between ( 0.16 and 1.00 ) Eos #: 0.08 x10(3)/uL -- Normal range between ( 0.00 and 0.80 ) [place] %: 5.3 % -- Normal range between [...] substance, such as a prescription medicine, an gpns-gvp-yfzvyom medicine, a vitamin, a supplement, or an [...] Heroin. ??? Multivitamins that contain iron. ??? Ejsm-xbq-rhrnodb cold and cough medicines. What increases the [...] these instructions at home: Medicines ??? Take zdnd-uxp-nmwsyto and prescription medicines only as told by your health care provider. ??? Before taking a new medicine, ask your health care provider whether the medicine: ? May cause side effects. ? Might react with other medicines. ??? Keep a list of all the medicines that you take, including kdeg-rvu-ittmeyp medicines, vitamins, supplements, and herbs. Bring this [...] your cell phone. The hotline of the [place] [employer] of Poison Control Centers is . [...] substance, such as a prescription medicine, an fniw-lca-xwzhyqt medicine, a vitamin, a supplement, or an [...] provider. Document Revised: 09/09/2018 Document Reviewed: 08/29/2018 [employer] Patient Education ?? 2020 Webcrunch. Emergency Awareness and Preventative Care STROKE is [...] Assistance with quitting is available by contacting 2-198-SXAL-NOW. This is a free resource providing counseling, [...] was given the opportunity to ask questions. Patient/Ed Special Education Teacher Name: Patient/Ed Special Education Teacher Signature: Relationship to Patient: Clinician/Hospital Ed Special Education Teacher Signature: Please Provide a Telephone Number Where You Can Be Reached: Is it Permissible To Leave a Message? Date: documented in this encounter Plan of Treatment Not on file documented as of this encounter Visit Diagnoses Not on filedocumented in this encounter
--- OUTSIDE RECORDS SUMMARY | 2025-09-05 10:59 | XMS_ITS | Encounter Summary ---
Author Organization [employer] ([place], [place], [place], [place], [place]) Address [address] [place] [address] Care Team Providers Care Credit Underwriter Name Role Phone Unavailable Primary Care Provider Unavailabl e Encounter Details Date Type Department Care Team (Late st Contact Info) Description 12/29/[address] [facility] [place] Family Medicine [facility] [place] [address] ProviderZahira MD [address] [place] [address] Social History Tobacco Use Types [...] Watts MD - 12/29/2020 5:23 PM CDT [facility] [place] [address] JOSE DE JESUSANIL CHRISTINE :1990 Visit [...] 3 days Where: [place] [address]- [phone] Business (1) Allergies Ultram (gallbladder problems) Immunizations [...] range between ( 0.0 and 7.0 ) [place] #: 0.55 K/uL -- Normal range between ( 0.16 and 1.00 ) Eos #: 0.08 x10(3)/uL -- Normal range between ( 0.00 and 0.80 ) [place] %: 5.3 % -- Normal range between [...] substance, such as a prescription medicine, an rcma-kyt-ntafsff medicine, a vitamin, a supplement, or an [...] Heroin. ??? Multivitamins that contain iron. ??? Bgwh-uqf-vwrgzdd cold and cough medicines. What increases the [...] these instructions at home: Medicines ??? Take zpzh-kru-juckvcz and prescription medicines only as told by your health care provider. ??? Before taking a new medicine, ask your health care provider whether the medicine: ? May cause side effects. ? Might react with other medicines. ??? Keep a list of all the medicines that you take, including xdfn-rjh-nldtdsk medicines, vitamins, supplements, and herbs. Bring this [...] your cell phone. The hotline of the [place] [employer] of Poison Control Centers is . [...] substance, such as a prescription medicine, an nrgr-cis-qeqwhdx medicine, a vitamin, a supplement, or an [...] provider. Document Revised: 09/09/2018 Document Reviewed: 08/29/2018 [employer] Patient Education ?? 2020 Eko. Emergency Awareness and Preventative Care STROKE is [...] Assistance with quitting is available by contacting 8-692-TOBX-NOW. This is a free resource providing counseling, [...] was given the opportunity to ask questions. Patient/Production Utility Worker Name: Patient/Production Utility Worker Signature: Relationship to Patient: Clinician/Hospital Production Utility Worker Signature: Please Provide a Telephone Number Where You Can Be Reached: Is it Permissible To Leave a Message? Date: documented in this encounter Plan of Treatment Not on file documented as of this encounter Visit Diagnoses Not on filedocumented in this encounter
--- OUTSIDE RECORDS SUMMARY | 2025-09-05 10:59 | XMS_ITS | Encounter Summary ---
Author Organization [employer] ([place], [place], [place], [place], [place]) Address [address] [place] [address] Care Team Providers Care Mallet Cutter Name Role Phone Unavailable Primary Care Provider Unavailabl e Encounter Details Date Type Department Care Team (Late st Contact Info) Description 12/29/2020 Transcribed Document [facility] [place] [facility] [place] [address] ProviderZahira MD [address] [place] [address] Social History Tobacco Use Types [...] EDT Electronically signed by Catarino Forde Conversion Healthcare Economics Consultant Toi at 01/26/2023 1:35 PM CDT documented in this encounter Plan of Treatment Not on file documented as of this encounter Visit Diagnoses Not on filedocumented in this encounter
[2025-09-05 11:33] LABS: Hematocrit 36.8 % (37.0-47.0); Hemoglobin 12.6 g/dL (12.2-16.2); Immature Granulocytes % 0.4 %; Mean Corpuscular HGB Conc 34.2 g/dL (31.8-35.4); Mean Corpuscular Hemoglobin 28.7 pg (27.0-31.2); Mean Corpuscular Volume 83.8 fl (81-99); Nucleated Red Blood Cells % 0 %; Platelet Count 391 K/mm3 (142-424); Red Blood Count 4.39 M/mm3 (4.20-5.40); Red Cell Distribution Width-SD 41.1 fL; White Blood Count 10.4 K/mm3 (4.8-10.8)
[2025-09-05 11:40] LABS: Albumin Level 4.3 g/dl (3.5-5.0); Chloride 99 mmol/L (98-107); Sodium 139 mmol/L (136-145)
[2025-09-05 11:43] LABS: Alanine Aminotransferase 24 U/L (12-78); Albumin/Globulin Ratio 1.5 (1.1-1.8); Alkaline Phosphatase 74 U/L (38-126); Anion Gap 15.9 mEq/L (5-15); Aspartate Amino Transferase 27 U/L (14-36); Bilirubin,Total 0.7 mg/dl (0.2-1.3); Blood Urea Nitrogen 14 mg/dl (7-17); Carbon Dioxide 27 mmol/L (22.0-30.0); Creatinine Clearance Estimated 95 mL/min (50-200); Creatinine,Serum 0.80 mg/dl (0.52-1.04); Estimated Glomerular Filt Rate 82 ml/min (>60); GFR (African American) 99 ML/MIN (>60); Globulin 2.9 g/dL (1.3-3.2); Total Protein,Serum 7.2 g/dl (6.3-8.2)
[2025-09-05 11:44] LABS: Calcium 9.0 mg/dl (8.4-10.2); Glucose 94 mg/dl (74-100)
[2025-09-05 11:53] LABS: Potassium 2.9 mmoL/L (3.5-5.1)
[2025-09-05] MEDS: 0.9 % SODIUM CHLORIDE 500 ML 100 ML IV (14:00)
== END 2025-09-05 18:27 | disposition home or self-care (01) ==
LOC: PREOP 10:54 → INF 13:17
PROVIDERS: PCP Physician Assistant; Visit Provider Obstetrics & Gynecology
DX: E87.6 Hypokalemia (principal)
CPT/HCPCS: 80053; 84702; 85025; 96365; 96366; J3480; J7040

== ENCOUNTER 2025-09-12 06:16 | Observation (INO) | payer BC, SELFPAY ==
[2025-09-05 13:56] VITALS: BMI 41.1
[2025-09-12] VITALS (21 sets, daily range): BP systolic 126–159; BP diastolic 66–98; PULSE 80–111; RESP 16–20; TEMP 36.5–43; O2SAT 94–100; BMI 41.1
[2025-09-12] MEDS: LACTATED RINGERS 1000ML 1,000 ML 25 ML IV (06:41)
[2025-09-12] MEDS: SCOPOLAMINE 1.5MG/72HRS PATCH 1 EACH TD (06:43)
[2025-09-12] MEDS: ACETAMINOPHEN 500MG TAB 1000 MG PO ×3 (06:43→17:23)
[2025-09-12] MEDS: CELECOXIB 100MG CAPSULE 400 MG PO (06:44)
[2025-09-12] MEDS: GABAPENTIN 600MG TABLET 600 MG PO (06:44)
--- NOTE | 2025-09-12 07:06 | EXP.ANES.CKL ---
[facility] Disclaimer: The information contained in this section may have been updated after the patient was seen, as this information can be updated by other users. Medical History Preop cardiovascular exam HTN (hypertension) Elevated glucose Obesity, morbid, BMI 40.0-49.9 Menorrhagia with regular cycle Anxiety Surgical History History of H/O bilateral breast reduction surgery Family History Other Coronary artery disease Heart attack Hypertension Social History (Updated 09/12/25 @ 06:30 by Isabella Mendez RN) Smoking Status: Current every day smoker tobacco type: cigarettes alcohol intake: never substance use type: denies use current occupational status: employed Travel in the last 8 weeks?: None household members: family housing: house Have you lived/traveled outside US in past 30 days?: No Contact w/someone who lives/traveled outside US past 30 days?: No Exposure to someone with infectious disease in past 14 days?: No Do you have a fever (greater than 100.4 F or 38 C)?: No Have you tested positive for COVID-19?: No Exposed to someone with COVID-19 in past 14 days?: No Do you have a sore throat?: No Do you have a cough?: No Do you have any weakness?: No Are you experiencing any nausea/vomitting?: Yes Do you have any diarrhea?: No Are you experiencing any unusual bleeding?: No Do you have any muscle aches/pain?: No Do you have any abdominal pain?: No Are you experiencing loss of taste or smell?: No [facility] Anesthesia Checklist Patient Identification Patient Identification: Arm Band and Verbal (Name & ) Structural Data Admitted From: Home Planned Operative Procedure/s: DARNELL, BSO, possible cystoscopy Verified Documents: Surgical Consent NPO Status Verified Time NPO: 00:00 Chart Verification Results Verified: CBC and BMP Additional verifications Anesthesia Reactions: No Airway Assessment Mallampati Score:: Class II C-Spine Mobility Assessed: Yes TMJ Mobility Assessed: Yes Dentition: Good Dentition Neurological Assessment Level of Consciousness: Awake and Alert Hx Seizures: No Numbness or tingling in extremities: No Anesthesia Plan Anesthesia Risk discussed: Yes Anesthesia Plan: Verified ASA Class: II Anesthesia Type: General
[2025-09-12 07:11] LABS: Albumin Level 4.0 g/dl (3.5-5.0); Chloride 101 mmol/L (98-107); Potassium 3.4 mmoL/L (3.5-5.1); Sodium 139 mmol/L (136-145)
[2025-09-12 07:13] LABS: Blood Urea Nitrogen 12 mg/dl (7-17); Creatinine Clearance Estimated 95 mL/min (50-200); Creatinine,Serum 0.80 mg/dl (0.52-1.04); Estimated Glomerular Filt Rate 82 ml/min (>60); GFR (African American) 99 ML/MIN (>60)
[2025-09-12 07:14] LABS: Alanine Aminotransferase 23 U/L (12-78); Albumin/Globulin Ratio 1.5 (1.1-1.8); Alkaline Phosphatase 73 U/L (38-126); Anion Gap 14.4 mEq/L (5-15); Aspartate Amino Transferase 22 U/L (14-36); Bilirubin,Total 0.4 mg/dl (0.2-1.3); Calcium 8.4 mg/dl (8.4-10.2); Carbon Dioxide 27 mmol/L (22.0-30.0); Globulin 2.7 g/dL (1.3-3.2); Glucose 139 mg/dl (74-100); Total Protein,Serum 6.7 g/dl (6.3-8.2)
[2025-09-12] MEDS: CEFAZOLIN 2GM VIAL 2 GM (07:30)
--- NOTE | 2025-09-12 07:45 | P.HP_ITS ---
History of Present Illness *Admission Date: 09/12/25 *Reason for visit:: menorrhagia, history of anemia *History of present illness: Mrs Keyanna Biggs is a 34 yo P2002 who presents to [facility] for scheduled surgery. She complains of heavy periods. Periods are regular, monthly. Flow lasts 7 days and is very heavy. She has required iron infusions secondary to heavy vaginal bleeding. History of x 2 and tubal ligation with last c- section. Pelvic ultrasound 06/01/25 demonstrated anteverted, enlarged uterus. The endometrium is thickened measuring 13.9 mm. 2. There is a fluid collection near the scar that measures 1.7 cm in size. I would recommend against endometrial ablation given that this cyst wall is very close to the bladder. The length of the endometrial cavity is just 4 cm. See images 4 and 5. 3. Both ovaries are seen and appear normal. They both have small follicles. 4. No fluid in the cul-de-sac. She desires definitive surgical intervention with hysterectomy. [facility] Disclaimer: The information contained in this section may have been updated after the patient was seen, as this information can be updated by other users. Medical History Preop cardiovascular exam HTN (hypertension) Elevated glucose Obesity, morbid, BMI 40.0-49.9 Menorrhagia with regular cycle Anxiety Surgical History (Updated 09/12/25 @ 10:32 by Giuliana Lux DO) History of H/O bilateral breast reduction surgery Family History Other Coronary artery disease Heart attack Hypertension Social History (Updated 09/12/25 @ 06:30 by Isabella Mendez RN) Smoking Status: Current every day smoker tobacco type: cigarettes alcohol intake: never substance use type: denies use current occupational status: employed Travel in the last 8 weeks?: None household members: family housing: house Have you lived/traveled outside US in past 30 days?: No Contact w/someone who lives/traveled outside US past 30 days?: No Exposure to someone with infectious disease in past 14 days?: No Do you have a fever (greater than 100.4 F or 38 C)?: No Have you tested positive for COVID-19?: No Exposed to someone with COVID-19 in past 14 days?: No Do you have a sore throat?: No Do you have a cough?: No Do you have any weakness?: No Are you experiencing any nausea/vomitting?: Yes Do you have any diarrhea?: No Are you experiencing any unusual bleeding?: No Do you have any muscle aches/pain?: No Do you have any abdominal pain?: No Are you experiencing loss of taste or smell?: No Other Medical History Have you received the Flu Vaccine for this season: No Have you received the Pneumonia Vaccine: No Review of Systems Review of Systems Review of systems:: pertinent systems reviewed and negative unless documented below *Genitourinary Genitourinary: Reports menorrhagia Meds Home Medications and Allergies Home Medications ?Medication ?Instructions ?Recorded ?Confirmed ?Type cholecalciferol (vitamin D3) 50 50 mcg PO DAILY #90 ca ps 08/13/23 09/12/25 Rx mcg (2,000 unit) capsule aspirin 81 mg tablet,delayed 81 mg PO DAILY 09/16/23 1 11/13/24 History release brexpiprazole 0.5 mg tablet 0.5 mg PO DAILY 08/13/25 1 11/13/24 History (Rexulti) losartan 50 mg-hydrochlorothiazide 1 tab PO DAILY #30 tabs 09/03/25 09/12/25 Rx 12.5 mg tablet potassium chloride 20 mEq 40 meq (2 x 20 mEq) PO DAILY #60 09/11/25 09/12/25 Rx tablet,extended release (K-Tab) tabs New Prescriptions to Start Prescriptions: Allergies Allergy/AdvReac Type Severity Reaction Status Date / Time tramadol (From [facility]) Allergy Severe Gastrointestinal Verified 09/05/25 10:01 Upset Exam Data for Last 24 hours Vital signs and Labs for Last 24 Hours: Temp Pulse Resp BP Pulse Ox O2 Del Method 97.7 F 91 H 18 157/85 H 98 Room Air 09/12/25 06:29 09/12/25 06:29 09/12/25 06:29 09/12/25 06:29 09/12/25 06:29 09/12/25 06:29 Laboratory Results - last 24 hr 09/12/25 06:36: Sodium 139, Potassium 3.4 L, Chloride 101, Carbon Dioxide 27, Anion Gap 14.4, BUN 12, Creatinine 0.80, Estimated Creat Clear 95, Estimated GFR 82, Est GFR ( Amer) 99, Glucose 139 H, Calcium 8.4, Total Bilirubin 0.4, AST 22, ALT 23, Alkaline Phosphatase 73, Total Protein 6.7, Albumin 4.0, Globulin 2.7, Albumin/Globulin Ratio 1.5 I & O for Last 24 hours: Intake & Output 09/09/25 09/10/25 09/11/25 09/12/25 23:59 23:59 23:59 23:59 Weight 263 lb Constitutional Constitutional: no acute distress and cooperative *Routine HEENT Exam Head: Present normocephalic and atraumatic Eye: Absent conjunctivae pink ENT: Present mucous membranes moist *Routine Neck Exam Neck: Present full ROM *Routine Respiratory Exam Respiratory: Present CTA bilaterally and normal respiratory effort *Routine Cardiovascular Exam Cardiovascular: Present RRR *Routine Abdominal Exam Abdominal: Present soft; Absent tenderness or distended *Routine Rectal Exam Rectal:: deferred *Routine Genitalia Exam Genitalia:: normal female *Routine Extremities Exam Extremities: Present full ROM; Absent edema or calf tenderness *Routine Neurological Exam Neurological: Present moving all extremities and normal speech Routine Psychiatric Exam Psychiatric: Present normal affect and cooperative Assessment and Plan *Assessment and plan (1) Menorrhagia with regular cycle: Status: Acute Category: Medical Code(s): N92.0 - Excessive and frequent menstruation with regular cycle (2) Obesity, morbid, BMI 40.0-49.9: Status: Acute Category: Medical Code(s): E66.01 - Morbid (severe) obesity due to excess calories (3) HTN (hypertension): Status: Acute Qualifiers: Hypertension type: primary hypertension Qualified Code(s): I10 - Essential (primary) hypertension Category: Medical Code(s): I10 - Essential (primary) hypertension (4) Current every day vaping: Status: Chronic Category: Social Hx Code(s): Z72.89 - Other problems related to lifestyle (5) History of : Problem Comment: x2 with bilateral partial salpingectomy with second Status: Acute Category: Surgical Code(s): Z98.891 - History of uterine scar from previous surgery Plan Admit to [facility] for scheduled surgery Reviewed DARNELL, BS, possible cystoscopy in detail. Discussed risks, benefits, alternatives, expectations and possible complications of surgery. Risks include but are not limited to bleeding; infection; damage to adjacent structures (bowel, bladder, nerves, blood vessels, etc) (possibly requiring further intervention and/or longer hospital stay); VTE; risks with anesthesia; and risk of . All questions addressed and answered. Patient voiced understanding of risks and possible complications. Patient desires to proceed with surgery. Consent form signed. Proceed with surgery as scheduled
[2025-09-12] MEDS: METRONIDAZ/SOD CHL 500 MG/100 ML PIGGYBACK 100 MG IV ×3 (07:50→23:30)
--- NOTE | 2025-09-12 09:57 | EXP.ANES.I ---
[facility] Anesthesia Record Part I Anesthesia Record I Intake, IV Amount: 1,200 Hydration: Adequate Estimated blood loss (mL): 300 Urine output (mL): 300 Blood Products used (#): none Blood Pressure: 126/78 SaO2: 96 Pulse Rate: 81 Airway Patency: Patent Respiratory Rate: 16 Temperature: 98.2 F Patient is:: Drowsy and Stable Stable to PACU at:: 09:50
[2025-09-12] MEDS: MORPHINE 2MG/ML SYRINGE 1 MG IV (10:15)
--- NOTE | 2025-09-12 10:38 | P.OP_ITS ---
Date of procedure: 09/12/25 Pre-op Diagnosis:: 1. Menorrhagia 2. Obesity 3. Hypertension 4. History of iron deficiency anemia 5. History of x 2 6. History of bilateral partial salpingectomy Post-op Diagnosis:: 1. Menorrhagia 2. Obesity 3. Hypertension 4. History of iron deficiency anemia 5. History of x 2 6. History of bilateral partial salpingectomy Procedure performed:: 1. Total Abdominal hysterectomy 2. Bilateral salpingectomy Surgeon:: Giuliana Lux DO Student Affairs Vice President(s):: Cedric Abebe MD FIRE PROTECTION DESIGNER:: Kash Qiu Anesthesia: GETA Estimated blood loss (mL): 300 Clinical Note:: Mrs Keyanna Biggs is a 34 yo P2002 who presents to [facility] for scheduled surgery. She complains of heavy periods. Periods are regular, monthly. Flow lasts 7 days and is very heavy. She has required iron infusions secondary to heavy vaginal bleeding. History of x 2 and tubal ligation with last c- section. Pelvic ultrasound 06/01/25 demonstrated anteverted, enlarged uterus. The endometrium is thickened measuring 13.9 mm. 2. There is a fluid collection near the scar that measures 1.7 cm in size. I would recommend against endometrial ablation given that this cyst wall is very close to the bladder. The length of the endometrial cavity is just 4 cm. See images 4 and 5. 3. Both ovaries are seen and appear normal. They both have small follicles. 4. No fluid in the cul-de-sac. She desires definitive surgical intervention with hysterectomy. Operative findings:: 1. On laparotomy, bowel and omentum grossly normal. Uterus was slightly enlarged and a little boggy. Bilateral ovaries grossly normal. Portion of fallopian tubes with fimbriated ends adhered to ovaries bilaterally. Small section of bladder tented up, approximately 0.75 cm, densely adhered to lower uterine segment. Operative note:: Discussed risks, benefits, alternatives, expectations and possible complications of surgery. All questions addressed and answered. Patient wished to proceed with surgery. Patient was wheeled back to the operating room and placed under general anesthesia without difficulty. The patient received 2 grams of Ancef and metronidazole 500 mg preoperatively. SCDs in place. Locke catheter was inserted and draining clear urine prior to the start of the procedure. Vagina was prepped with betadine. She was placed in the supine position. She was prepped and draped in normal sterile fashion. Attention was then turned to the abdomen. A Pfannenstiel skin incision was made 2 cm above pubic symphysis along prior Pfannenstiel scar. This was carried through to underlying layer of fascia. Fascia was incised in midline, extended laterally with Britt scissors. Superior aspect of fascial incision was grasped with two Desean clamps, elevated up, and rectus muscle dissected off bluntly and sharply with Britt scissors. Inferior aspect of fascial incision was grasped with two Desean clamps, elevated up, and rectus muscle dissected off bluntly and sharply with Britt scissors. The retcus muscle was then in the midline and the peritoneum was entered bluntly with a digit. Peritoneal incision was then extended superiorly and inferiorly with good visualization of the bladder. O'Daniel Peres'bill retractor was placed in the abdominal incision. Bowel was packed cephalad with warm moist laparotomy sponges. Bilateral uterine cornua grasped with Vaishnavi clamps. Uterus was deviated to the left, right round ligament was placed on stretch and incised between two clamps. The distal stump of the round ligament was suture ligated with 0 Vicryl suture. The proximal stump was held with a Desean clamp. The leaves of the broad ligament were opened both anteriorly and posteriorly. The uterus was retracted cephalad. The anterior leaf of the broad ligament was opened down to the vesicouterine fold. Same procedure was carried out on the contralateral side. The vesicouterine peritoneal fold was elevated, and the bladder was dissected off of the lower uterine segment with sharp and blunt dissection. The uterus was retracted toward the pubic symphysis and deviated to right side. A finger was inserted through the peritoneum of the posterior leaf of the broad ligament under the suspensory ligament of the ovary. The suspensory ligament was clamped, incised and suture ligated with 0 Vicryl suture leaving the ovary in situ. The distal stump was doubly suture ligated. The same procedure was carried out on the contralateral side. Distal end of right fallopian tube was grasped with Mabel clamp and Bovi cautery was used to cauterize and cut fallopian tube off of right ovary. Same procedure was carried out on the contralateral side. Bilateral fallopian tubes were handed off of sterile field and will be sent to pathology for review. The uterus was retracted cephalad and deviated to the right side. Uterine arteries were skeletonized. Straight Desean was placed at the junction of the lower uterine segment on the uterine vessels. An incision was made between uterus and Desean clamp. The stump was doubly suture ligated with 0 Vicryl. The same procedure was carried out on the contralateral side. The uterus was held in traction in the cephalad position and pubovescial cervical fascia was dissected inferiorly. Straight Desean clamp was applied to the cardinal ligament. Cardinal ligament was incised and the distal stump was ligated with 0 Vicryl suture. The same procedure was carried out on the contralateral side. Bilateral uterosacral ligaments were clamped between straight Desean clamps, incised, and suture ligated with 0 Vicryl suture. The lower uterine segment and upper vagina were palpated between the thumb and first finger of the surgeon's hand to ensure that the ligaments have been completely incised. Curved Kochers were placed just under cervix. Vagina was entered Britt scissors and cut circumferentially. The uterus and cervix were removed. The edges of the vagina were grasped with Desean clamps. Vaginal cuff was closed in a running locking manner with 0 Vicryl suture. Pelvis was irrigated. Oozing was noted along vaginal cuff. Surgicel powder was applied over vaginal cuff and ovarian pedicles. Hemostasis was noted. At this point all instruments and sponges were removed from the pelvis.? The peritoneum was grasped with Vaishnavi clamps x 3. The peritoneum was reapproximated with 0 Vicryl suture in a running stitch. The corners of the fascia were grasped with Desean clamps, and the fascia was reapproximated with two # 1 Vicryl suture overlapped to the right of midline. The subcutaneous tissue was irrigated with clear return of fluids and reapproximated with 2-0 Vicryl. The skin was reapproximated with Insorb britney. Steri strips and Telfa were placed over closed Pfannenstiel skin incision. Patient awoke from anesthesia without difficulty and was transferred to the recovery room in stable condition. Condition: stable Disposition: floor Specimens:: 1. Uterus and cervix 2. Bilateral fallopian tubes Complications:: None
[2025-09-12] MEDS: HYDROMORPHONE 2MG/ML SYRINGE 1 MG IV ×2 (10:57→18:26)
[2025-09-12] MEDS: LACTATED RINGERS 1000ML 1,000 ML 125 ML IV (11:17)
--- NOTE | 2025-09-12 12:35 | HMH.PHAAMS2 ---
- Antimicrobial Stewardship Review culture & sensitivity review Stewardship interventions: culture & sensitivity review, reviewed - no change Comments: post op antibiotics, nu cultures drawn
--- NOTE | 2025-09-12 12:40 | EXP.ANES.II ---
[facility] Anesthesia Record Part II Anesthesia Record Part II Discharge Time: 10:20 Destination: Obstetric Gynecology Dept PACU nurse assessment reviewed?: Yes Patient Condition:: Good Anesthesia Complications:: None Swallowing reflex intact?: Yes Airway Patency: Patent Cyanosis?: No Blood Pressure: 142/94 SaO2: 97 Respiratory Rate: 18 Pulse Rate: 96 Temperature: 98.2 F Mental Status: Alert & Oriented Pain level:: 2 Nausea and/or vomitting:: None Intake, IV Amount: 0 Hydration: Adequate
--- NOTE | 2025-09-12 14:06 | PC.NURSE ---
F/C discontinued and pt assisted up to bathroom to 'freshn' up'. Ambulated well with 2 person stand-by assist. Bed linens straightened. Pt back to bed shortly after. Pt's remains at bs visiting. Incentive spirometer provided and usage explained. V/U. Warm blanket was also provided for splinting when moving or ambulating.
[2025-09-12 14:10] LABS: Microscopic,Cath URINE MICROSCOPIC (MICROSCOPIC)
[2025-09-12] MEDS: KETOROLAC 30MG/ML VIAL 30 MG IV ×2 (14:21→20:36)
[2025-09-12 15:21] LABS: Appearance,Urine/Cath CLEAR (Clear); Bilirubin,Cath Negative (Negative); Blood, Urine/Cath Negative (Negative); Color,Urine/Cath YELLOW (Yellow); Glucose,Urine/Cath (UA) Negative (Negative); Ketones,Urine/Cath Negative (Negative); Leukocyte Esterase,Cath Negative (Negative); Nitrate,Cath Negative (Negative); PH,Urine/Cath 7.5 (5.0-8.5); Protein,Urine/Cath Negative (Negative); Specific Gravity, Urine/Cath 1.010 (1.005-1.030); Urobilinogen,Cath 0.2 EU/dl (0.2)
[2025-09-12 16:15] LABS: Bacteria,Urine/Cath TRACE /lpf; WBC,Urine/Cath Occasional #/hpf (0-3)
--- NOTE | 2025-09-12 19:00 | PC.NURSE ---
Report received from Marjorie Mello RN
[2025-09-12] MEDS: SENNOSIDES 8.6MG/DOCUSATE 50MG TABLET 1 TAB PO (20:36)
--- NOTE | 2025-09-12 20:45 | PC.NURSE ---
Dr. Abebe notified that patient was feeling increased anxiety being in the hospital. TO recieved for Ativan 0.5mg PRN q 2 hrs up to 2 dosed, read back and verified and sent to pharmacy
--- NOTE | 2025-09-12 21:13 | PC.NURSE ---
Patient reports her anxiety is getting better at this time. Denies any needs. Call light within reach
[2025-09-12] MEDS: OXYCODONE 5MG IMMEDIATE RELEASE TABLET 5 MG PO (22:24)
[2025-09-13] MEDS: HYDROMORPHONE 2MG/ML SYRINGE 1 MG IV (00:49)
[2025-09-13 00:50] VITALS: BP 149/93; PULSE 86; RESP 18; TEMP 37.1; O2SAT 98
[2025-09-13] MEDS: ACETAMINOPHEN 500MG TAB 1000 MG PO ×2 (00:50→08:56)
[2025-09-13 04:30] VITALS: BP 148/73; PULSE 87; RESP 18; TEMP 37.1; O2SAT 98
[2025-09-13 04:48] LABS: Hematocrit 34.9 % (37.0-47.0); Hemoglobin 11.6 g/dL (12.2-16.2); Immature Granulocytes % 0.5 %; Mean Corpuscular HGB Conc 33.2 g/dL (31.8-35.4); Mean Corpuscular Hemoglobin 28.4 pg (27.0-31.2); Mean Corpuscular Volume 85.5 fl (81-99); Nucleated Red Blood Cells % 0 %; Platelet Count 436 K/mm3 (142-424); Red Blood Count 4.08 M/mm3 (4.20-5.40); Red Cell Distribution Width-SD 42.5 fL; White Blood Count 20.5 K/mm3 (4.8-10.8)
[2025-09-13 04:51] VITALS: O2SAT 98
[2025-09-13 04:54] LABS: Chloride 102 mmol/L (98-107)
[2025-09-13 04:55] LABS: Albumin Level 4.0 g/dl (3.5-5.0); Potassium 4.5 mmoL/L (3.5-5.1); Sodium 136 mmol/L (136-145)
[2025-09-13 04:57] LABS: Alanine Aminotransferase 54 U/L (12-78); Anion Gap 15.5 mEq/L (5-15); Aspartate Amino Transferase 38 U/L (14-36); Blood Urea Nitrogen 12 mg/dl (7-17); Carbon Dioxide 23 mmol/L (22.0-30.0); Creatinine Clearance Estimated 95 mL/min (50-200); Creatinine,Serum 0.80 mg/dl (0.52-1.04); Estimated Glomerular Filt Rate 82 ml/min (>60); GFR (African American) 99 ML/MIN (>60)
[2025-09-13 04:58] LABS: Albumin/Globulin Ratio 1.5 (1.1-1.8); Alkaline Phosphatase 60 U/L (38-126); Bilirubin,Total 0.9 mg/dl (0.2-1.3); Calcium 8.7 mg/dl (8.4-10.2); Globulin 2.7 g/dL (1.3-3.2); Glucose 171 mg/dl (74-100); Total Protein,Serum 6.7 g/dl (6.3-8.2)
[2025-09-13] MEDS: KETOROLAC 30MG/ML VIAL 30 MG IV (05:20)
[2025-09-13] MEDS: OXYCODONE 5MG IMMEDIATE RELEASE TABLET 5 MG PO ×2 (05:21→09:56)
[2025-09-13] MEDS: SENNOSIDES 8.6MG/DOCUSATE 50MG TABLET 1 TAB PO (05:22)
[2025-09-13] MEDS: SIMETHICONE 80MG CHEWABLE TABLET 160 MG PO (05:24)
--- NOTE | 2025-09-13 06:06 | PC.NURSE ---
Patient resting in bed, patient showered without difficulty with RN stand by for safety. Patient bed linens changed, and trash changed. Call light within reach
--- NOTE | 2025-09-13 06:39 | PC.NURSE ---
report given to Marjorie Mello RN
[2025-09-13 08:12] VITALS: BP 117/70; PULSE 83; RESP 18; TEMP 36.9; O2SAT 98
[2025-09-13] MEDS: IBUPROFEN 400 MG TABLET 800 MG PO (08:55)
--- NOTE | 2025-09-13 09:45 | PC.NURSE ---
Spoke with on phone d/t pt's complaints of vaginal and rectal pain. States that she most likely needs to have a bm. Phone order received to repeat h/h at 1300 d/t elevated wbcs. R/V
--- NOTE | 2025-09-13 09:56 | EXP.DC.SUM ---
General Admission date:: 09/12/25 Discharge date: 09/13/25 HPI HPI HPI: POD # 1 s/p DARNELL, BS Resting comfortably this morning. Pain controlled with medication. Voiding without difficulty and passing flatus. Tolerating regular diet. Denies fever/chills, chest pain and shortness of breath. Ambulating well ad beka. No lower extremity swelling or calf pain. Hospital Course Hospital Course Hospital Course: Mrs Keyanna Biggs is a 34 yo P2002 who presents to [facility] for scheduled surgery. She complains of heavy periods. Periods are regular, monthly. Flow lasts 7 days and is very heavy. She has required iron infusions secondary to heavy vaginal bleeding. History of x 2 and tubal ligation with last . Pelvic ultrasound 06/01/25 demonstrated anteverted, enlarged uterus. The endometrium is thickened measuring 13.9 mm. 2. There is a fluid collection near the scar that measures 1.7 cm in size. I would recommend against endometrial ablation given that this cyst wall is very close to the bladder. The length of the endometrial cavity is just 4 cm. See images 4 and 5. 3. Both ovaries are seen and appear normal. They both have small follicles. 4. No fluid in the cul-de-sac. She desires definitive surgical intervention with hysterectomy. She underwent total abdominal hysterectomy with bilateral salpingectomy on 09/12/25. She did well postoperatively. Pain controlled with medication. Voiding without difficulty and passing flatus. Tolerating regular diet. Vital signs stable, afebrile. Abdomen soft, appropriate tenderness to palpation postoperatively. She had good bowel sounds. Ambulating well ad beka. WBC was slightly elevated. Will redraw CBC this afternoon. Urinalysis was negative for infection on 09/12. Discharge home today with instructions to follow-up in the office in 2 weeks or sooner if needed. Exam Data for Last 24 hours Vital signs and Labs for Last 24 Hours: Temp Pulse Resp BP Pulse Ox O2 Del Method 98.4 F 83 18 117/70 98 Room Air 09/13/25 08:12 09/13/25 08:12 09/13/25 08:12 09/13/25 08:12 09/13/25 08:12 09/13/25 08:12 Laboratory Results - last 24 hr 09/12/25 07:36: Urine Color Yellow, Urine Appearance Clear, Urine pH 7.5, Ur Specific [place] 1.010, Urine Protein Negative, Urine Glucose (UA) Negative, Urine Ketones Negative, Urine Blood Negative, Urine Nitrate Negative, Urine Bilirubin Negative, Urine Urobilinogen 0.2, Ur Leukocyte Esterase Negative, Urine RBC None, Urine WBC Occasional, Ur Squamous Epith Cells 3-5, Urine Bacteria Trace 09/13/25 04:36: WBC 20.5 H*, RBC 4.08 L, Hgb 11.6 L, Hct 34.9 L, MCV 85.5, MCH 28.4, MCHC 33.2, RDW 13.6, Plt Count 436 H, MPV 9.1, Neut % (Auto) 89.9 H, Lymph % (Auto) 3.5 L, [place] % (Auto) 6.0, Eos % (Auto) 0.0 L, Baso % (Auto) 0.1, Neut # (Auto) 18.4 H, Lymph # (Auto) 0.7, [place] # (Auto) 1.2 H, Eos # (Auto) 0.0, Baso # (Auto) 0.0, Sodium 136, Potassium 4.5 D, Chloride 102, Carbon Dioxide 23, Anion Gap 15.5 H, BUN 12, Creatinine 0.80, Estimated Creat Clear 95, Estimated GFR 82, Est GFR ( Amer) 99, Glucose 171 H D, Calcium 8.7, Total Bilirubin 0.9, AST 38 H D, ALT 54 D, Alkaline Phosphatase 60, Total Protein 6.7, Albumin 4.0, Globulin 2.7, Albumin/Globulin Ratio 1.5 I & O for Last 24 hours: Intake & Output 09/10/25 09/11/25 09/12/25 09/13/25 23:59 23:59 23:59 23:59 Intake Total 1805.833 / 1805.833 Output Total 900 / 900 0 / 0 Balance 905.833 / 905.833 0 / 0 Weight 263 lb Constitutional Constitutional: no acute distress and cooperative *Routine HEENT Exam Head: Present normocephalic and atraumatic Eye: Absent conjunctivae pink ENT: Present mucous membranes moist and dentition normal *Routine Neck Exam Neck: Present full ROM *Routine Respiratory Exam Respiratory: Present CTA bilaterally and normal respiratory effort *Routine Cardiovascular Exam Cardiovascular: Present RRR *Routine Abdominal Exam Abdominal: Present soft, normoactive bowel sounds and tenderness (appropriate tenderness to palpation postoperatively); Absent distended or guarding Comments: Pfannenstiel incision clean/dry/intact with steri strips in place *Routine Rectal Exam Patient deferred: visual exam *Routine Exam Patient deferred: external exam *Routine Extremities Exam Extremities: Present full ROM; Absent edema or calf tenderness *Routine Neurological Exam Neurological: Present alert, moving all extremities and normal speech Routine Psychiatric Exam Psychiatric: Present normal affect and cooperative Results Data Completed and Pending Labs on day of discharge: Labs from last 24 hours 09/13/25 09/12/25 04:36 07:36 WBC 20.5 H* RBC 4.08 L Hgb 11.6 L Hct 34.9 L MCV 85.5 MCH 28.4 MCHC 33.2 RDW 13.6 Plt Count 436 H MPV 9.1 Neut % (Auto) 89.9 H Lymph % (Auto) 3.5 L [place] % (Auto) 6.0 Eos % (Auto) 0.0 L Baso % (Auto) 0.1 Neut # (Auto) 18.4 H Lymph # (Auto) 0.7 [place] # (Auto) 1.2 H Eos # (Auto) 0.0 Baso # (Auto) 0.0 Sodium 136 Potassium 4.5 D Chloride 102 Carbon Dioxide 23 Anion Gap 15.5 H BUN 12 Creatinine 0.80 Estimated Creat Clear 95 Estimated GFR 82 Est GFR ( Amer) 99 Glucose 171 H D Calcium 8.7 Total Bilirubin 0.9 AST 38 H D ALT 54 D Alkaline Phosphatase 60 Total Protein 6.7 Albumin 4.0 Globulin 2.7 Albumin/Globulin Ratio 1.5 Urine Color Yellow Urine Appearance Clear Urine pH 7.5 Ur Specific [place] 1.010 Urine Protein Negative Urine Glucose (UA) Negative Urine Ketones Negative Urine Blood Negative Urine Nitrate Negative Urine Bilirubin Negative Urine Urobilinogen 0.2 Ur Leukocyte Esterase Negative Urine RBC None Urine WBC Occasional Ur Squamous Epith Cells 3-5 Urine Bacteria Trace DS: Diagnosis Discharge Diagnosis (1) S/P abdominal hysterectomy: Status: Acute Code(s): Z90.710 - Acquired absence of both cervix and uterus (2) Menorrhagia with regular cycle: Status: Acute Code(s): N92.0 - Excessive and frequent menstruation with regular cycle (3) Obesity, morbid, BMI 40.0-49.9: Status: Acute Code(s): E66.01 - Morbid (severe) obesity due to excess calories (4) HTN (hypertension): Status: Acute Code(s): I10 - Essential (primary) hypertension Qualifiers: Hypertension type: primary hypertension Qualified Code(s): I10 - Essential (primary) hypertension (5) Current every day vaping: Status: Chronic Code(s): Z72.89 - Other problems related to lifestyle (6) History of : Status: Acute Code(s): Z98.891 - History of uterine scar from previous surgery Problem details: x2 with bilateral partial salpingectomy with second Meds Home Medications and Allergies Home Medications ?Medication ?Instructions ?Recorded ?Confirmed ?Type cholecalciferol (vitamin D3) 50 50 mcg PO DAILY #90 caps 08/13/23 09/12/25 Rx mcg (2,000 unit) capsule aspirin 81 mg tablet,delayed 81 mg PO DAILY 09/16/23 09/12/25 History release brexpiprazole 0.5 mg tablet 0.5 mg PO DAILY 08/13/25 09/12/25 History (Rexulti) losartan 50 mg-hydrochlorothiazide 1 tab PO DAILY #30 tabs 09/03/25 09/12/25 Rx 12.5 mg tablet ibuprofen 800 mg tablet 800 mg PO Q8H PRN pain #20 tabs 09/13/25 Rx oxycodone 5 mg tablet 5 mg PO Q4HP PRN Moderate Pain 09/13/25 Rx (4-6) #20 tabs New Prescriptions to Start Prescriptions: ibuprofen Giuliana Lux oxycodone Giuliana Lux Allergies Allergy/AdvReac Type Severity Reaction Status Date / Time tramadol (From [facility]) Allergy Severe Gastrointestinal Verified 09/05/25 10:01 Upset Discharge Plan Disposition Patient Disposition: Home, Self-Care Condition: Good Follow up Plan Follow up with: Giuliana Lux DO [Staff Physician, PILOT CAPTAIN] - 2 weeks Prescriptions/Medication Reconciliation: New oxycodone 5 mg Tablet 5 mg PO Q4HP PRN (Reason: Moderate Pain (4-6)) Qty: 20 0RF ibuprofen 800 mg tablet 800 mg PO Q8H PRN (Reason: pain) Qty: 20 0RF Continued Rexulti 0.5 mg tablet 0.5 mg PO DAILY losartan-hydrochlorothiazide 50-12.5 mg tablet 1 tab PO DAILY Qty: 30 5RF cholecalciferol (vitamin D3) 50 mcg (2,000 unit) capsule 50 mcg PO DAILY Qty: 90 3RF aspirin 81 mg Tablet,Delayed Release (Dr/Ec) 81 mg PO DAILY Discontinued potassium chloride [K-Tab] 20 mEq tablet extended release 40 meq PO DAILY Qty: 60 2RF Problem Reconciliation Problems Reviewed?: Yes Patient Discharge Instructions ACTIVITY: Limited activity DIET: continue same diet and regular diet Additional Instructions: Additional Instructions: You had a total abdominal hysterectomy and bilateral saplingectomy. This means that your uterus, cervix and remainder of fallopian tubes were removed. The top of your vagina is closed with dissolvable sutures. You will follow-up in office for a postop visit at 2 weeks and at 6 weeks. At your 6-week postop appointment you will have a pelvic exam to ensure your cuff is healing well. Discharge: 1. Take 800 mg Ibuprofen every 8 hours as needed for pain. You can also take 1000 mg of Tylenol in between doses, every 6-8 hours and Oxycodone 5 mg, 1 tablet every 4-6 hours or more as needed. 2. Take Miralax twice daily for the first 3 days and then as needed to prevent constipation Activity: - No lifting more than 10 lbs for 6 weeks. - No driving for 7 days and/or while you are taking narcotic pain medication. Wound care - You have steri strips covering your incision. These can come off in 7-10 days. - You have dissolvable britney under your skin which will dissolve over the next 6-8 weeks as your body heals - Keep your wound clean and dry, ok to wash with soap and water but pat thoroughly dry Please call the office or return to the ER if you have any of the followin. heavy vaginal bleeding 2. pain that does not respond to your narcotic pain medication 3. dizziness or lightheadedness such that you lose consciousness 4. abnormal discharge from your incisions Questions or concerns: It is my privilege to be your doctor. Please let me know if you have other questions or concerns. Giuliana Lux, [facility] [place], [place] [address] Patient Instructions: How to Care for a Surgical Wound, Open Hysterectomy Surgery, DI for Hysterectomy Print Language: Bahamian Providers Primary Care Provider: Em Delcid Admit Provider: Giuliana Lux Attending Provider: Giuliana Lux
--- NOTE | 2025-09-13 11:25 | PC.NURSE ---
Pt up ambulating in hallway with sig other.
--- NOTE | 2025-09-13 13:08 | PC.NURSE ---
notified of CBC results. States to go ahead with d/c as planned.
[2025-09-13 13:11] LABS: Hematocrit 31.8 % (37.0-47.0); Immature Granulocytes % 0.3 %; Mean Corpuscular HGB Conc 32.4 g/dL (31.8-35.4); Mean Corpuscular Hemoglobin 28.1 pg (27.0-31.2); Mean Corpuscular Volume 86.6 fl (81-99); Nucleated Red Blood Cells % 0 %; Platelet Count 320 K/mm3 (142-424); Red Blood Count 3.67 M/mm3 (4.20-5.40); Red Cell Distribution Width-SD 43.5 fL; White Blood Count 12.2 K/mm3 (4.8-10.8)
[2025-09-13 13:13] LABS: Hemoglobin 10.3 g/dL (12.2-16.2)
--- NOTE | 2025-09-13 13:15 | PC.NURSE ---
Discharge instructions discussed. Pt v/u. Pt also present.
--- NOTE | 2025-09-13 13:31 | PC.NURSE ---
Pt discharged via wc to private vehicle by SALLY Christianson. She is accompanied by her .
== END 2025-09-13 13:35 | disposition home or self-care (01) ==
LOC: OB 06:16
PROVIDERS: Admitting Provider Obstetrics & Gynecology; PCP Physician Assistant; Visit Provider Obstetrics & Gynecology
PROC: 0UT90ZZ Resection of Uterus, Open Approach (ICD-10-PCS; CPT 58150; principal; 2025-09-12 07:30)
DX: N92.0 Excessive and frequent menstruation with regular cycle (principal); E66.01 Morbid (severe) obesity due to excess calories; Z68.41 Body mass index [BMI] 40.0-44.9, adult; I10 Essential (primary) hypertension; F17.290 Nicotine dependence, other tobacco product, uncomplicated; Z98.891 History of uterine scar from previous surgery; Z79.899 Other long term (current) drug therapy; Z79.82 Long term (current) use of aspirin; Z88.5 Allergy status to narcotic agent; Z98.51 Tubal ligation status; Z90.710 Acquired absence of both cervix and uterus; F41.9 Anxiety disorder, unspecified; Z82.49 Family history of ischemic heart disease and other diseases of the circulatory system; F17.210 Nicotine dependence, cigarettes, uncomplicated
CPT/HCPCS: 58150; 64488; 36415; 51702; 80053; 81001; 85025; 86850; 96361; 96365; 96366; 96367; 96374; 96375; 96376; G0378; J0665; J0666; J0690; J1100; J1171; J1836; J1885; J2003; J2250; J2270; J2405; J2704; J3010; J7120

== ENCOUNTER 2025-10-08 09:25 | Outpatient (CLI) | payer BC, SELFPAY ==
--- OUTSIDE RECORDS SUMMARY | 2025-10-08 09:37 | XMS_ITS | Encounter Summary ---
Author Organization [employer] ([place], [place], [place], [place], [place]) Address [address] [place] [address] Care Team Providers Care Nuisance Wildlife Control Operator Name Role Phone Unavailable Primary Care Provider Unavailabl e Encounter Details Date Type Department Care Team (Late st Contact Info) Description 12/29/2020 Transcribed Document [facility] [place] [address] ProviderZahira MD [address] [place] [address] Social History Tobacco Use Types [...] Watts MD - 12/29/2020 5:28 PM CDT [facility] [place] [address] JOSE DE JESUSJOELLENSOHAIL [...] days Where: [place] [phone]- [phone] Business (1) Allergies Ultram (gallbladder problems) Immunizations [...] range between ( 0.0 and 7.0 ) [place] #: 0.55 K/uL -- Normal range between ( 0.16 and 1.00 ) Eos #: 0.08 x10(3)/uL -- Normal range between ( 0.00 and 0.80 ) [place] %: 5.3 % -- Normal range between [...] substance, such as a prescription medicine, an xmsc-dpp-gqynzvx medicine, a vitamin, a supplement, or an [...] Heroin. ??? Multivitamins that contain iron. ??? Jdiq-wnb-vemcrlj cold and cough medicines. What increases the [...] these instructions at home: Medicines ??? Take lfcn-vqc-znuxgbq and prescription medicines only as told by your health care provider. ??? Before taking a new medicine, ask your health care provider whether the medicine: ? May cause side effects. ? Might react with other medicines. ??? Keep a list of all the medicines that you take, including dkhw-bae-ttemznp medicines, vitamins, supplements, and herbs. Bring this [...] your cell phone. The hotline of the [place] [employer] is . [...] substance, such as a prescription medicine, an ppxd-dku-hbcekgs medicine, a vitamin, a supplement, or an [...] provider. Document Revised: 09/09/2018 Document Reviewed: 08/29/2018 [employer] Patient Education ?? 2020 [employer]. Emergency Awareness and Preventative Care STROKE is [...] Assistance with quitting is available by contacting 3-159-ZVCB-NOW. This is a free resource providing counseling, [...] was given the opportunity to ask questions. Patient/Information Systems Technician Name: Patient/Information Systems Technician Signature: Relationship to Patient: Clinician/Hospital Information Systems Technician Signature: Please Provide a Telephone Number Where You Can Be Reached: Is it Permissible To Leave a Message? Date: documented in this encounter Plan of Treatment Not on file documented as of this encounter Visit Diagnoses Not on filedocumented in this encounter
--- OUTSIDE RECORDS SUMMARY | 2025-10-08 09:37 | XMS_ITS | Encounter Summary ---
Author Organization [employer] ([place], [place], [place], [place], [place]) Address [address] [address] Care Team Providers Care Distributing Clerk Name Role Phone Unavailable Primary Care Provider Unavailabl e Encounter Details Date Type Department Care Team (Late st Contact Info) Description 12/29/2020 Transcribed Document [facility] [place] [facility] [place] [address] ProviderZahira MD [address], [place] [id number] Social History Tobacco Use Types Packs/Day Years [...] Historical ProviderMD - 12/29/2020 1:37 PM CDT [place] Suicide Severity Rating Scale (C-SSRS) Entered On: 12/29/2020 14:29 EDT Performed On: 12/29/2020 14:27 EDT by Hai Yepez RN [place] Suicide Severity Rating Scale (C-SSRS) CSSRS Past [...]
--- OUTSIDE RECORDS SUMMARY | 2025-10-08 09:37 | XMS_ITS | Encounter Summary ---
Author Organization [employer] ([place], [place], [place], [place], [place]) Address [address] [facility] [place] [address] Care Team Providers Care Nurse Executive Name Role Phone Unavailable Primary Care Provider Unavailabl e Encounter Details Date Type Department Care Team (Late st Contact Info) Description 12/29/2020 Transcribed Document [facility] [place] [facility] [place] [address] ProviderZahira MD [address] [place] [address] Social History Tobacco Use Types [...] Source Stated Height Entry Format Kerri Height/Length, POLISH (ft) 5 ft Height/Length POLISH 7 Inch CLINICALHEIGHT 170.18 cm [facility] Body Weight 61.16 kg Weight Source, ED Critical estimated dosing weight Weight Entry Format Kerri Weight [place] lb 250 lb CLINICALWEIGHT 113.64 kg Body Surface Area (BSA) 2.23 m2 Body Mass Index 39.2 kg/m2 HI . Oxygen Saturation 12/29/2020 13:42 EDT Oxygen Saturation 99 % . General: Alert, no acute distress. [place] coma scale: Total score: Total score: 15. [...] 14.6 % LOW Lymph # 1.51 x10(3)/uL Saunders % 5.3 % Saunders # 0.55 K/uL Eos % 0.8 % [...]
--- OUTSIDE RECORDS SUMMARY | 2025-10-08 09:37 | XMS_ITS | Encounter Summary ---
Author Organization [employer] ([place], [place], [place], [place], [place]) Address [address] [facility] [place] [address] Care Team Providers Care Associate Professor Of Mathematics Name Role Phone Unavailable Primary Care Provider Unavailabl e Encounter Details Date Type Department Care Team (Late st Contact Info) Description 12/29/2020 Transcribed Document [facility] [place] [facility] [place] [address] ProviderZahira MD [address] [place] [address] Social History Tobacco Use Types [...]
--- OUTSIDE RECORDS SUMMARY | 2025-10-08 09:37 | XMS_ITS | Encounter Summary ---
Author Organization [employer] ([place], [place], [place], [place], [place]) Address [address] [facility] [place] [address] Care Team Providers Care Chairman & Ceo Name Role Phone Unavailable Primary Care Provider Unavailabl e Encounter Details Date Type Department Care Team (Late st Contact Info) Description 12/29/2020 Transcribed Document [facility] [place] [facility] [place] [address] ProviderZahira MD [address] [place] [address] Social History Tobacco Use Types [...] Watts MD - 12/29/2020 5:23 PM CDT [facility] [address] JOSE DE JESUSJOELLENSOHAIL CHRISTINE :1990 Visit [...] 3 days Where: [place] [phone]- [phone] Business (1) Allergies Ultram (gallbladder problems) Immunizations [...] range between ( 0.0 and 7.0 ) Bennett #: 0.55 K/uL -- Normal range between ( 0.16 and 1.00 ) Eos #: 0.08 x10(3)/uL -- Normal range between ( 0.00 and 0.80 ) Bennett %: 5.3 % -- Normal range between [...] substance, such as a prescription medicine, an oqop-ppb-bfrzxwp medicine, a vitamin, a supplement, or an [...] Heroin. ??? Multivitamins that contain iron. ??? Mwlt-wgs-tbzlvqk cold and cough medicines. What increases the [...] these instructions at home: Medicines ??? Take ecob-cfr-vkydadj and prescription medicines only as told by your health care provider. ??? Before taking a new medicine, ask your health care provider whether the medicine: ? May cause side effects. ? Might react with other medicines. ??? Keep a list of all the medicines that you take, including qafr-wrr-pohyhcd medicines, vitamins, supplements, and herbs. Bring this [...] your cell phone. The hotline of the [place] [employer] is . [...] substance, such as a prescription medicine, an woos-ejf-qsvneot medicine, a vitamin, a supplement, or an [...] provider. Document Revised: 09/09/2018 Document Reviewed: 08/29/2018 [employer] Patient Education ?? 2020 [employer] Emergency Awareness and Preventative Care STROKE is [...] Assistance with quitting is available by contacting 1-401-FXOL-NOW. This is a free resource providing counseling, [...] was given the opportunity to ask questions. Patient/Retail Attendant Name: Patient/Retail Attendant Signature: Relationship to Patient: Clinician/Hospital Retail Attendant Signature: Please Provide a Telephone Number Where You Can Be Reached: Is it Permissible To Leave a Message? Date: documented in this encounter Plan of Treatment Not on file documented as of this encounter Visit Diagnoses Not on filedocumented in this encounter
--- OUTSIDE RECORDS SUMMARY | 2025-10-08 09:37 | XMS_ITS | Encounter Summary ---
Author Organization [employer] ([place], [place], [place], [place], [place]) Address [address] [facility] [place] [address] Care Team Providers Care Agronomy Research Manager Name Role Phone Unavailable Primary Care Provider Unavailabl e Encounter Details Date Type Department Care Team (Late st Contact Info) Description 12/29/2020 Transcribed Document [facility] [place] [facility] [address] ProviderZahira MD [address] [place], [place] [id number] Social History Tobacco Use Types Packs/Day Years [...]
--- OUTSIDE RECORDS SUMMARY | 2025-10-08 09:37 | XMS_ITS | Encounter Summary ---
Author Organization [employer] ([place], [place], [place], [place], [place]) Address [address] [facility] [place] [address] Care Team Providers Care Lead Based Paint Technician Name Role Phone Unavailable Primary Care Provider Unavailabl e Encounter Details Date Type Department Care Team (Late st Contact Info) Description 12/29/2020 Transcribed Document [facility] [place] [facility] [place] [address] ProviderZahira MD [address] [place] [address] Social History Tobacco Use Types [...] : 2 - Emergent [employer] : [facility] ED KAYLYN HUNG RN - 12/29/2020 13:42 [...] 12/29/2020 13:47:35 EDT) Problems(Active) Anxiety (SNOMED CT :52932847 ) Name of Problem: Anxiety ; Recorder: KAYLYN HUNG RN; Confirmation: Confirmed ; Classification: Medical ; Code: [id number] ; Contributor System: [employer] ; Last Updated: 12/29/2020 13:46 EDT ; Life Cycle Date: 12/29/2020 ; Life Cycle Status: Active ; Vocabulary: SNOMED CT Depression (SNOMED CT :58087576 ) Name of Problem: Depression ; Recorder: KAYLYN HUNG RN; Confirmation: Confirmed ; Classification: Medical ; Code: [id number] ; Contributor System: [employer] ; Last Updated: 12/29/2020 13:46 EDT ; Life Cycle Date: 12/29/2020 ; Life Cycle Status: Active ; Vocabulary: SNOMED CT Diagnoses(Active) Medication overdose Date: 12/29/2020 ; Diagnosis Type: Reason For Visit ; Confirmation: Complaint of ; Clinical Dx: Medication overdose ; Classification: Medical ; Clinical Service: Emergency medicine ; Code: PNED ; Probability: 0 ; Diagnosis Code: [id number] ED Height and Weight Height Source : Stated Height Entry Format : [place] Height, Feet : 5 ft(Converted to: 152 cm, 60 Inch) Height, Inches : 7 Inch(Converted to: 0 ft 7 Inch, 17.78 cm) Clinical Height : 170.18 cm Weight Source, ED : Critical estimated dosing weight Weight Entry Format : [place] Weight, Pounds : 250 lb Clinical Dosing Weight : 113.64 kg Body Surface Area (BSA) : 2.23 m2 Body Mass Index : 39.2 kg/m2 (HI) [place] Body Weight (IBW) : 61.16 kg KAYLYN HUNG RN - 12/29/2020 13:42 EDT documented in this encounter Plan of Treatment Not on file documented as of this encounter Visit Diagnoses Not on filedocumented in this encounter
--- OUTSIDE RECORDS SUMMARY | 2025-10-08 09:37 | XMS_ITS | Referral Summary ---
Author Organization [employer] ([place], [place], [place], [place], [place]) Address [address] [facility] [address] [facility] [place] [address] Care Team Providers Care Legal Editor Name Role Phone Unavailable Primary Care Provider [...]
--- OUTSIDE RECORDS SUMMARY | 2025-10-08 09:37 | XMS_ITS | Encounter Summary ---
Author Organization [employer] ([place], [place], [place], [place], [place]) Address [address] [facility] [place] [address] Care Team Providers Care Maintenance Instructor Name Role Phone Unavailable Primary Care Provider Unavailabl e Encounter Details Date Type Department Care Team (Late st Contact Info) Description 12/29/2020 Transcribed Document [facility] [place] [facility] [place] [address] ProviderZahira MD [address] [place] [address] Social History Tobacco Use Types [...] Communication Barrier : None Primary Language : German Any Spiritual/Cultural Needs or Requests : No [...]
--- OUTSIDE RECORDS SUMMARY | 2025-10-08 09:37 | XMS_ITS | Clinical Summary ---
Author Organization [facility] Address [address] [place] [address] Care Team Providers Care Food Concession Manager Name Role Phone Yaw Rubio MD Primary Care Provider [phone] Allergies Active Allergy Reactions Criticality Noted Date [...] to complete this topic Insurance SATYA BROOKS [id number] [facility] [employer] Care Teams Food Concession Manager Relationship Specialty Start Date End Date Yaw Rubio MD [address] [facility] [address] [facility] [address] [place] [address] PCP - General Family Medicine 02/15/17
--- OUTSIDE RECORDS SUMMARY | 2025-10-08 09:37 | XMS_ITS | Clinical Summary ---
Author Organization [employer] ([place], [place], [place], [place], [place]) Address [address] [facility] [place] [address] Care Team Providers Care Graduate Fellow Name Role Phone Unavailable Primary Care Provider [...]
--- OUTSIDE RECORDS SUMMARY | 2025-10-08 09:37 | XMS_ITS | Encounter Summary ---
Author Organization [employer] ([place], [place], [place], [place], [place]) Address [address] [facility] [place] [address] Care Team Providers Care Mattress Inspector Name Role Phone Unavailable Primary Care Provider Unavailabl e Encounter Details Date Type Department Care Team (Late st Contact Info) Description 12/29/2020 Transcribed Document [facility] [place] [facility] [address] ProviderZahira MD [address] [place] [address] Social History Tobacco Use Types [...] 5:23 PM CDT Electronically signed by Maurisio [facility] Conversion Marine Plumber Cerner at 01/26/2023 1:24 PM CDT documented in this encounter Plan of Treatment Not on file documented as of this encounter Visit Diagnoses Not on filedocumented in this encounter
[2025-10-08 10:26] LABS: Chloride 106 mmol/L (98-107); Sodium 138 mmol/L (136-145)
[2025-10-08 10:27] LABS: Potassium 3.6 mmoL/L (3.5-5.1)
[2025-10-08 10:29] LABS: Blood Urea Nitrogen 11 mg/dl (7-17)
[2025-10-08 10:30] LABS: Anion Gap 9.6 mEq/L (5-15); Calcium 10.6 mg/dl (8.4-10.2); Carbon Dioxide 26 mmol/L (22.0-30.0); Creatinine,Serum 0.90 mg/dl (0.52-1.04); Estimated Glomerular Filt Rate 71 ml/min (>60); GFR (African American) 86 ML/MIN (>60); Glucose 109 mg/dl (74-100)
== END 2025-10-08 23:59 | disposition home or self-care (01) ==
LOC: LAB 09:26
PROVIDERS: PCP Physician Assistant; Visit Provider Nurse Practitioner
DX: I10 Essential (primary) hypertension (principal)
CPT/HCPCS: 36415; 80048